=== PATIENT | female | born 1960 | race Caucasian/White ===

== ENCOUNTER 2023-02-02 12:47 | Inpatient (IN) | payer MEDICAID, SELFPAY ==
[2023-02-02] VITALS (39 sets, daily range): BP systolic 93–129; BP diastolic 68–95; PULSE 79–150; RESP 18–28; TEMP 36.1–36.8; O2SAT 88–99; BMI 24.0; BMI 24.4
--- NOTE | 2023-02-02 13:11 | CRLHL7_ITS ---
For Patients: As a result of the Cures Act, medical imaging exams and procedure reports are released immediately into your electronic medical record. You may view this report before your referring provider. If you have questions, please contact your health care provider. INDICATION: AFib with RVR. TECHNIQUE: Chest 1 view. COMPARISON: Chest radiograph 12/10/2022. FINDINGS: No focal consolidation, pleural effusion, or pneumothorax. Mild bibasilar atelectasis. Pulmonary hyperinflation. Cardiomegaly. Normal pulmonary vascularity. Old left rib fractures. IMPRESSION: 1. No acute cardiopulmonary findings. 2. Cardiomegaly. Dictated by Daphnie Salas MD @ 02/02/2023 2:16:50 PM (Electronically Signed)
[2023-02-02 13:27] LABS: Basophils Percent Auto 0.3 % (0.0-3.0); Eosinophils Percent Auto 0.6 % (0.0-7.0); Hematocrit 58.7 % (33.0-51.0); Immature Granulocytes Pct Auto 0.3 %; Lymphocytes Percent Auto 11.6 % (20-44); Mean Corpuscular HGB Conc 34 gm/dL (32-36); Mean Corpuscular Hemoglobin 32 pg (26-34); Mean Corpuscular Volume 94 fL (80-100); Neutrophils Percent Auto 79.2 % (42.0-72.0); Platelet Count* 169 K/uL (140-440); RDW Coefficient of Variation % 14.5 % (11.5-15.5); Red Blood Count 6.28 m/uL (4.00-5.20); White Blood Count* 12.04 K/uL (4.50-11.00)
[2023-02-02 13:31] LABS: Slide Review Reflex No
[2023-02-02] MEDS: dilTIAZem HCL 125 MG in 0.9 % SODIUM CHLORIDE 100 ml 100 ML IVPB (13:31)
[2023-02-02] MEDS: 0.9 % SODIUM CHLORIDE 1000 ml 1,000 ML 30 ML IV (13:34)
[2023-02-02 13:42] LABS: Albumin* 3.9 g/dL (3.3-5.0)
[2023-02-02 13:43] LABS: Chloride* 84 mmol/L (96-114); Potassium* 3.9 mmol/L (3.6-5.1); Sodium* 126 mmol/L (135-149)
[2023-02-02 13:45] LABS: Alkaline Phosphatase* 70 U/L (40-150); Aspartate Amino Transferase* 35 U/L (12-35); Blood Urea Nitrogen* 21 mg/dL (7-30); Carbon Dioxide* 34 mmol/L (20-32); Creatinine* 0.6 mg/dL (0.5-1.5); Est. Creatinine Clearance* 48.43; Estimated Glomerular Filt Rate 100 ml/min; Total Protein* 6.5 g/dL (6.0-8.3)
[2023-02-02 13:46] LABS: Alanine Aminotransferase* 29 U/L (4-35); Calcium* 9.4 mg/dL (8.4-10.6); Glucose* 133 mg/dL (60-115)
[2023-02-02 13:48] LABS: D Dimer Quantitative* 1.96 ug/ml (0.00-0.50)
[2023-02-02 13:58] LABS: NT Pro B Type NatriureticPept* 6810 pg/mL
[2023-02-02 13:59] LABS: Troponin I* 0.02 ng/mL (0.01-0.04)
--- NOTE | 2023-02-02 14:11 | CRLHL7_ITS ---
For Patients: As a result of the 21st Century Cures Act, medical imaging exams and procedure reports are released immediately into your electronic medical record. You may view this report before your referring provider. If you have questions, please contact your health care provider. INDICATION: Elevated D-dimer. TECHNIQUE: CT chest PE was acquired with 95 cc Isovue 370 IV contrast. COMPARISON: None FINDINGS: Pulmonary Arteries: Motion and decreased signal to noise ratio from low mAs degrades the evaluation of the distal segmental and subsegmental pulmonary arteries. No large central or proximal segmental pulmonary embolus. No pulmonary hypertension or right ventricular strain. Heart and Mediastinum: The visualized portions of the thyroid are normal. No axillary or supraclavicular lymphadenopathy. No mediastinal, hilar or retrocrural lymphadenopathy. Normal heart size. Normal caliber aorta. Atherosclerotic calcifications. Lungs and Airways: Motion degrades fine detail evaluation. Biapical subpleural fibrosis. Bibasilar passive atelectasis. A few scattered indeterminate pulmonary nodules, the largest of which measures 11 millimeters in the right upper lobe axial image 48. Peripheral middle lobe atelectasis/consolidation. Mild areas of bronchial wall thickening and peripheral endobronchial mucous plugging. Retained tracheal secretions. Pleura: Moderate right and small left pleural effusions. Abdomen: The visualized upper abdominal organs are unremarkable. Bones and soft tissues: The skeletal structures and soft tissues of the chest wall are unremarkable. IMPRESSION: 1. Motion and decreased signal to noise ratio from low mAs degrades the evaluation of the distal segmental and subsegmental pulmonary arteries. No large central or proximal segmental pulmonary embolus. 2. A few scattered indeterminate pulmonary nodules measuring up to 11 millimeters and peripheral middle lobe atelectasis as well as areas of bronchial wall thickening. Differential considerations include underlying infectious etiology. Recommend unenhanced chest CT in 3 months after appropriate medical therapy to document resolution and to assess for underlying malignant potential. 3. Moderate right and small left pleural effusions. Please note that all CT scans at this facility use dose modulation, iterative reconstruction, and/or weight-based dosing when appropriate to reduce radiation dose to as low as reasonably achievable. Dictated by Greyson Landry MD @ 02/02/2023 3:17:16 PM (Electronically Signed)
--- NOTE | 2023-02-02 14:14 | ED.SOB ---
HPI - SOB/Dyspnea General Chief Complaint: Shortness of Breath/Dyspnea Stated Complaint: chest pain - dr said shes staying overnight? Time Seen by Provider: 02/02/23 13:02 History of Present Illness HPI Narrative: Patient is a 63-year-old woman who is been short of breath for several months. She had routine follow-up today in the office and although she has noticed that her shortness of breath has been progressing she really had no acute symptoms. Upon arrival her pulse is 150 EKG done at the [facility] showed atrial fibrillation with a rate of 150. Patient declined ambulance but came in by private car with a solo truck driver. She really has had no chest pain she has had lower extremity edema that is been progressing over the same period time as her shortness of breath. Patient was seen approximately 2 months ago at which point atrial tachycardia rate of approximately 110 was noted. Patient was significantly polycythemic at that time. He tells me that they may have stopped her amlodipine at that visit. Patient states she does not see her doctor regularly and has just accepted it she is going to be short of breath and edematous. Upon arrival she is placed on 2 L of oxygen for mild hypoxia. Patient states she is not aware of any heart problems but does have chronic hypertension. Related Data Home Medications Medication Instructions Recorded Confirmed amlodipine 5 mg tablet 5 mg PO DAILY 02/02/23 02/02/23 aspirin 81 mg chewable tablet 1 tab PO DAILY 02/02/23 02/02/23 clonidine HCl 0.1 mg tablet 0.1 mg PO BID 02/02/23 02/02/23 fluticasone 250 mcg-salmeterol 50 1 ea inhalation BID 02/02/23 02/02/23 mcg/dose blistr powdr for inhalation furosemide 20 mg tablet 20 mg PO QAM 02/02/23 02/02/23 gabapentin 300 mg capsule 300 mg PO BID 02/02/23 02/02/23 raloxifene 60 mg tablet 60 mg PO DAILY 02/02/23 02/02/23 Previous Rx's Medication Instructions Recorded naproxen 375 mg tablet,delayed 375 mg PO BID PRN pain #30 tabs 12/10/22 release Allergies Allergy/AdvReac Type Severity Reaction Status Date / Time Penicillins AdvReac Unknown Hallucinati Verified 12/10/22 15:58 ng Review of Systems Status of ROS: Reports: 10 or more systems reviewed and unremarkable except as noted in History and below [facility] Medical History (Updated 02/02/23 @ 15:31 by Thaddeus Ryder MD) Hypertension ?I10 - Essential (primary) hypertension (ICD-10) Social History Smoking Status: Current every day smoker What tobacco products do you use: cigarettes Do you use any of these nicotine containing products: None Second hand tobacco smoke exposure: No How often do you have a drink containing alcohol: 4 or more times a week How many standard drinks containing alcohol do you have on a typical day: 3 or 4 How often do you have six or more drinks on one occasion: Never AUDIT-C Alcohol total score: 5 Non-prescribed substance use: marijuana (any form) service: No Exam Narrative: Exam Narrative: EXAM GENERAL: Patient appears plethoric and ready EYES: No scleral icterus. THYROID: no thyroid nodules or thyromegaly. LYMPH: No supraclavicular or cervical lymphadenopathy. SKIN: Visible skin seen during exam normal or with benign process only. EXT: 1+ lower extremity edema noted. HEART: Irregularly irregular with rapid rate. LUNGS: Scattered crackles bilaterally. ABD: Soft, non tender, non distended. PSYCH: Good eye contact, speech is not pressured. Const: Vital Signs, click to edit/add: Vital Signs - 24 hr 02/02/23 13:01 02/02/23 13:07 02/02/23 13:10 Temperature 96.9 F L Pulse Rate 121 H Pulse Rate [Pulse Oximeter] 144 H Respiratory Rate 28 H Blood Pressure Blood Pressure [Ri ght Upper Arm] 129/93 H Pulse Oximetry 88 91 94 Oxygen Delivery Me thod Room Air Nasal Cannula Oxygen Flow Rate 2 02/02/23 13:10 02/02/23 13:17 02/02/23 13:21 Temperature Pulse Rate 150 H Pulse Rate [Pulse Oximeter] Respiratory Rate Blood Pressure 116/82 Blood Pressure [Ri ght Upper Arm] Pulse Oximetry 94 95 Oxygen Delivery Me thod Nasal Cannula Nasal Cannula Nasal Cannula Oxygen Flow Rate 2 2 2 02/02/23 13:31 02/02/23 13:32 02/02/23 13:43 Temperature Pulse Rate 140 H 116 H 131 H Pulse Rate [Pulse Oximeter] Respiratory Rate Blood Pressure 108/95 H 108/89 Blood Pressure [Ri ght Upper Arm] Pulse Oximetry 95 95 95 Oxygen Delivery Me thod Nasal Cannula Nasal Cannula Nasal Cannula Oxygen Flow Rate 2 2 2 02/02/23 13:45 02/02/23 13:52 02/02/23 14:00 Temperature Pulse Rate 138 H 127 H 121 H Pulse Rate [Pulse Oximeter] Respiratory Rate Blood Pressure 105/73 Blood Pressure [Ri ght Upper Arm] Pulse Oximetry 93 95 96 Oxygen Delivery Me thod Nasal Cannula Nasal Cannula Nasal Cannula Oxygen Flow Rate 2 2 2 02/02/23 14:02 02/02/23 14:12 02/02/23 14:15 Temperature Pulse Rate 138 H 121 H 125 H Pulse Rate [Pulse Oximeter] Respiratory Rate Blood Pressure 98/82 93/77 Blood Pressure [Ri ght Upper Arm] Pulse Oximetry 95 93 93 Oxygen Delivery Me thod Nasal Cannula Nasal Cannula Nasal Cannula Oxygen Flow Rate 2 2 2 02/02/23 15:02 Temperature 97.4 F L Pulse Rate Pulse Rate [Pulse Oximeter] Respiratory Rate 20 Blood Pressure Blood Pressure [Ri ght Upper Arm] Pulse Oximetry 94 Oxygen Delivery Me thod Nasal Cannula Oxygen Flow Rate 4 Course Course Hospital Course: Patient seen examined. Cardizem drip started CBC comprehensive metabolic panel troponin BNP D-dimer ordered. Vital Signs Vital signs: Initial Vital Signs Temperature 96.9 F L 02/02/23 13:01 Temperature Source Temporal Artery Scan 02/02/23 13:01 Pulse Rate 144 H 02/02/23 13:01 Pulse Rhythm Irregular 02/02/23 13:01 Respiratory Rate 28 H 02/02/23 13:01 Blood Pressure 129/93 H 02/02/23 13:01 Blood Pressure Mean 105 02/02/23 13:01 Blood Pressure Position Supine 02/02/23 13:01 Pulse Oximetry 88 02/02/23 13:01 Oxygen Delivery Method Room Air 02/02/23 13:01 Vital Signs Temperature 96.9 F L 02/02/23 13:01 Pulse Rate 144 H 02/02/23 13:01 Respiratory Rate 28 H 02/02/23 13:01 Blood Pressure 129/93 H 02/02/23 13:01 Pulse Oximetry 88 02/02/23 13:01 Oxygen Delivery Method Room Air 02/02/23 13:01 Temperature 97.4 F L 02/02/23 15:02 Pulse Rate 125 H 02/02/23 14:15 Respiratory Rate 20 02/02/23 15:02 Blood Pressure 93/77 02/02/23 14:12 Pulse Oximetry 94 02/02/23 15:02 Oxygen Delivery Method Nasal Cannula 02/02/23 15:02 Oxygen Flow Rate 4 02/02/23 15:02 MDM - SOB/Dyspnea MDM Narrative Medical decision making narrative: Patient is a constellation of complex medical issues. She presents with atrial fibrillation with rapid ventricular response. I do her slow down on a Cardizem drip and we do have her blood pressure still greater than 90 systolic. She has a hemoglobin of 20. She has bilateral pleural effusions she has 2+ lower extremity edema. I am very concerned for her. She has a elevated BNP greater than 6000 this is up approximately 2000 since her last visit. Hyponatremia is also noted. Patient requires 3 L of oxygen to maintain her saturation. At this time I do believe she needs an ICU bed for further evaluation and management. Of note although the D-dimer is elevated her CT of the chest is negative for large PE. Differential Diagnosis Differential diagnosis: Likely acute exacerbation of chronic obstructive airways disease, congestive heart failure, community acquired pneumonia, asthma with exacerbation and pulmonary embolism Lab Data Labs: Lab Results 02/02/23 02/02/23 Range/Units 13:15 14:24 WBC 12.04 H (4.50-11.00) K/uL RBC 6.28 H (4.00-5.20) m/uL Hgb 20.0 H (12.0-16.0) gm/dL Hct 58.7 H (33.0-51.0) % MCV 94 (80-100) fL MCH 32 (26-34) pg MCHC 34 (32-36) gm/dL RDW Coeff of Jonel 14.5 (11.5-15.5) % Plt Count 169 (140-440) K/uL Neut % (Auto) 79.2 H (42.0-72.0) % Lymph % (Auto) 11.6 L (20-44) % [place] % (Auto) 8.0 (0.0-11.0) % Eos % (Auto) 0.6 (0.0-7.0) % Baso % (Auto) 0.3 (0.0-3.0) % Neut # (Auto) 9.50 H (1.7-7.0) K/uL Lymph # (Auto) 1.40 (0.90-2.90) K/uL [place] # (Auto) 1.00 H (0.00-0.90) K/UL Eos # (Auto) 0.10 (0.00-0.50) K/uL Baso # (Auto) 0.00 (0.00-0.30) K/uL Abs Immat Gran (auto) 0.00 (0.00-0.30) K/uL Imm/Tot Granulo (auto) 0.3 % D-Dimer Quant (PE/DVT) 1.96 H (0.00-0.50) ug/ml VBG pH 7.457 H (7.32-7.43) VBG pCO2 49 (40-50) mmHG VBG pO2 63.7 H (25-47) mmHG VBG HCO3 35 H (21-28) mmol/L Sodium 126 L (135-149) mmol/L Potassium 3.9 (3.6-5.1) mmol/L Chloride 84 L (96-114) mmol/L Carbon Dioxide 34 H (20-32) mmol/L BUN 21 (7-30) mg/dL Creatinine 0.6 (0.5-1.5) mg/dL Estimated Creat Clear 48.43 Estimated GFR 100 ml/min Glucose 133 H (60-115) mg/dL Calcium 9.4 (8.4-10.6) mg/dL Total Bilirubin 1.6 H (0.1-1.5) mg/dL AST 35 (12-35) U/L ALT 29 (4-35) U/L Alkaline Phosphatase 70 (40-150) U/L Troponin I 0.02 (0.01-0.04) ng/mL NT-Pro-B Natriuret Pep 6810 pg/mL Total Protein 6.5 (6.0-8.3) g/dL Albumin 3.9 (3.3-5.0) g/dL Discharge Plan Discharge Clinical Impression: Atrial fibrillation Patient Disposition: Admitted As Inpatient Condition: Stable Activity Level: Other Discharge Diet: Other Prescriptions: No Action naproxen 375 mg tablet,delayed release (DR/EC) 375 mg PO BID PRN (Reason: pain) Qty: 30 0RF fluticasone propion-salmeterol 250-50 mcg/dose blister with device 1 ea INHALATION BID clonidine HCl 0.1 mg tablet 0.1 mg PO BID amlodipine 5 mg tablet 5 mg PO DAILY gabapentin 300 mg capsule 300 mg PO BID aspirin 81 mg tablet,chewable 1 tab PO DAILY raloxifene 60 mg tablet 60 mg PO DAILY furosemide 20 mg tablet 20 mg PO QAM Follow Up/Referrals: Melissa Ramos MD [Primary Care Provider] -
[2023-02-02 14:30] LABS: HCO3 VBG 35 mmol/L (21-28); PCO2 VBG 49 mmHG (40-50); PO2 VBG 63.7 mmHG (25-47); pH VBG 7.457 (7.32-7.43)
--- NOTE | 2023-02-02 15:07 | ED.NURSE ---
pt's oxygen dropped down to ~86% on 2L, so she was titrated up to 4L and her oxygen level was ~96% for a while. Pt is also resting
--- NOTE | 2023-02-02 15:14 | ED.NURSE ---
Pt was put on 5L of oxygen, OxyMask on. Her O2 levels were dropping down to ~88%. PRINCIPAL DATA ARCHITECT in room to assess.
--- NOTE | 2023-02-02 15:18 | ED.NURSE ---
JACKER came in and assessed pt, they turned her back down to 3L, on the oxymask. She is currently at ~97%, resting.
[2023-02-02 15:37] LABS: SARS PCR* Negative SARS-CoV-2 (Negative)
[2023-02-02] MEDS: dilTIAZem 120 MG CAP.ER.24H PO (17:52)
[2023-02-02] MEDS: THIAMINE 100 MG TABLET PO (17:52)
[2023-02-02] MEDS: METOPROLOL SUCCINATE (XL) 25 MG TAB PO (17:52)
[2023-02-02] MEDS: NICOTINE 14 mg PATCH 1 PATCH TRANSDERMA (17:52)
--- NOTE | 2023-02-02 17:57 | PM.IMHP1 ---
Hospitalist- H&P: HPI History of Present Illness Time Seen by Provider: 17:00 Date Seen: 02/02/23 Chief complaint: chest pain - dr said shes staying overnight? Narrative: Cornelia Chu is a 63 year old woman who presents to the emergency department as referral from her primary care physician who saw her today in the clinic and discerned that the patient had atrial fibrillation with rapid ventricular response and thus refer the patient to the emergency department for further assessment. Patient has had a few months of gradually increasing edema affecting mainly bilateral lower extremities but also hands and face. Has had a gradually progressive sense of fatigue during the same interim of time. In the process of assessing the patient and treating her for this she was seen in the clinic as well as emergency department. In the emergency department on 12/10/2022 CBC was obtained with the hemoglobin of 19.7 hematocrit of 59 white blood cell count of 11.1 platelet count 150. No additional testing was done for this. Patient was started on oral furosemide. It was recommended that she utilize compression stockings but she states she is not able to for these. Denies chest heaviness, pressure, tightness, or pain. Denies syncope or near-syncope. Denies nausea vomiting. Denies palpitations or chest fluttering. Denies fevers, rigors, diaphoresis. Denies night sweats. Denies pruritus. Denies weight loss. With the edema she has had a weight gain. Has a sense of aching in her extremities. Denies nausea, vomiting, palpitations. Review of Systems Status of ROS: Reports: 10 or more systems reviewed and unremarkable except as noted in History and below [facility] Medical History (Updated 02/02/23 @ 18:58 by Eliseo Villareal MD) Colon polyp ?K63.5 - Polyp of colon (ICD-10) Chronic bronchitis with COPD (chronic obstructive pulmonary disease) ?J44.9 - Chronic obstructive pulmonary disease, unspecified (ICD-10) Diverticulosis of colon ?K57.30 - Diverticulosis of large intestine without perforation or abscess without bleeding (ICD-10) Severe osteopetrosis ?Q78.2 - Osteopetrosis (ICD-10) Hyponatremia ?E87.1 - Hypo-osmolality and hyponatremia (ICD-10) Spinal stenosis of lumbar region with neurogenic claudication ?M48.062 - Spinal stenosis, lumbar region with neurogenic claudication (ICD-10) Cigarette smoker ?F17.210 - Nicotine dependence, cigarettes, uncomplicated (ICD-10) Alcohol use disorder ?F10.90 - Alcohol use, unspecified, uncomplicated (ICD-10) Hypertension ?I10 - Essential (primary) hypertension (ICD-10) Surgical History (Updated 02/02/23 @ 17:46 by Eliseo Villareal MD) History of loop electrosurgical excision procedure (LEEP) of cervix ?Z98.890 - Other specified postprocedural states (ICD-10) Status post colonoscopy with polypectomy ?Z98.890 - Other specified postprocedural states (ICD-10) Family History (Updated 02/02/23 @ 17:51 by Eliseo Villareal MD) Other CHF (congestive heart failure) Coronary artery disease Social History (Updated 02/02/23 @ 17:53 by Eliseo Villareal MD) Narrative: Lives alone. . Has social security disability related to her back. Designates her daughter, Jermaine Chu, cell phone number [phone], as her power of corporate associate attorney for health should that be required. Requests DNR DNI resuscitation status. What is your current living situation?: I presently have a place to live Problems where you live: pests, such as bugs, ants, or mice and mold Problems where you live details: mold/pests (building old) In the past 12 months, utilities in danger of being shut off: no In the past 12 mos, have been you worried that your food would run out before you had money to buy more?: never true In the past 12 mos, the food you bought just didn't last and you didn't have money to buy more?: never true Highest level of school completed/degree received: high school graduate Smoking Status: Current every day smoker What tobacco products do you use: cigarettes Smoking packs per day: 0.5 Smoking cigarettes per day: 10.0 Do you use any of these nicotine containing products: None Second hand tobacco smoke exposure: No How often do you have a drink containing alcohol: 4 or more times a week Alcohol type: beer How many standard drinks containing alcohol do you have on a typical day: 3 or 4 How often do you have six or more drinks on one occasion: Never AUDIT-C Alcohol total score: 5 Non-prescribed substance use: marijuana (any form) Non-prescribed substance use details: I smoke it as often as possible Caffeine: Yes How often does anyone, including family, friends and others, physically hurt you: never How often does anyone, including family, friends and others, insult or talk down to you: never How often does anyone, including family, friends and others, threaten you with harm: never How often does anyone, including family, friends and others, scream or curse at you: never service: No Meds Home Medications and Allergies Home Medications Medication Instructions Recorded Confirmed Type acetaminophen 500 mg tablet 1,000 mg PO TID PRN 02/02/23 02/02/23 History albuterol sulfate 90 mcg/actuation 1 - 2 puff inhalation Q4H PRN 02/02/23 02/02/23 History aerosol inhaler wheezing amlodipine 5 mg tablet 5 mg PO DAILY 02/02/23 02/02/23 History aspirin 81 mg chewable tablet 1 tab PO DAILY 02/02/23 02/02/23 History clonidine HCl 0.1 mg tablet 0.1 mg PO BID 02/02/23 02/02/23 History fluticasone 250 mcg-salmeterol 50 1 ea inhalation BID 02/02/23 02/02/23 History mcg/dose blistr powdr for inhalation furosemide 20 mg tablet 20 mg PO QAM 02/02/23 02/02/23 History gabapentin 300 mg capsule 300 mg PO BID 02/02/23 02/02/23 History nspplgok-irag-zona 8 mg-folic 400 1 tab PO DAILY 02/02/23 02/02/23 History mcg-K 50 mcg-lutein 300 mcg tablet (Centrum Silver Women) raloxifene 60 mg tablet 60 mg PO DAILY 02/02/23 02/02/23 History Allergies Allergy/AdvReac Type Severity Reaction Status Date / Time Penicillins AdvReac Unknown Hallucinati Verified 12/10/22 15:58 ng Exam Narrative: Exam Narrative: I examine her in the emergency department as she is in a semi recumbent position on the exam table. The color of her skin is strikingly red in her face, extremities, torsum. Smells strongly of tobacco smoke. Appears comfortable and in no acute distress. Vision and hearing are grossly normal. Alert, oriented to self, place, time, and even situation. Seemingly slow to respond to certain questions. Cooperative, friendly. Somewhat anxious. Mood and affect are congruent. Tympanic membranes are normal. Midline nasal septum. Dentition in fair repair. Mallampati class 2 airway. Does not have icterus. Does not have conjunctival injection. Pupils equally round reactive to light and accommodation. Extraocular muscles are intact. Neck is supple. Midline trachea. Does have jugular venous distention. No head and neck lymphadenopathy. Lungs with minimal inspiratory and expiratory wheezing, prolonged expiratory phase. No rales or rhonchi. Shallow rapid breathing. Barrel-shaped chest. No CVA tenderness. Heart tones chaotic and tachycardic. Distant tones. No murmur, gallop, rub. PMI not laterally displaced. Abdomen with active bowel sounds, soft, nontender. Has pitting edema up to her thighs bilaterally. Capillary refill less than 3 seconds. No focal motor neurologic deficits. No tremor, asterixis, or ataxia. Most striking feature of her skin exam is the erythema of face, extremities, and her torsum. No rashes. No petechiae. Does have some cyanosis of distal extremities. Const: Vital Signs, click to edit/add: Vital Signs - 24 hr 02/02/23 13:01 02/02/23 13:07 02/02/23 13:10 Temperature 96.9 F L Pulse Rate 121 H Pulse Rate [Left P ulse Oximeter] Pulse Rate [Pulse Oximeter] 144 H Respiratory Rate 28 H Blood Pressure Blood Pressure [Ri ght Arm] Blood Pressure [Ri ght Upper Arm] 129/93 H Pulse Oximetry 88 91 94 Oxygen Delivery Me thod Room Air Nasal Cannula Oxygen Flow Rate 2 02/02/23 13:10 02/02/23 13:17 02/02/23 13:21 Temperature Pulse Rate 150 H Pulse Rate [Left P ulse Oximeter] Pulse Rate [Pulse Oximeter] Respiratory Rate Blood Pressure 116/82 Blood Pressure [Ri ght Arm] Blood Pressure [Ri ght Upper Arm] Pulse Oximetry 94 95 Oxygen Delivery Me thod Nasal Cannula Nasal Cannula Nasal Cannula Oxygen Flow Rate 2 2 2 02/02/23 13:31 02/02/23 13:32 02/02/23 13:43 Temperature Pulse Rate 140 H 116 H 131 H Pulse Rate [Left P ulse Oximeter] Pulse Rate [Pulse Oximeter] Respiratory Rate Blood Pressure 108/95 H 108/89 Blood Pressure [Ri ght Arm] Blood Pressure [Ri ght Upper Arm] Pulse Oximetry 95 95 95 Oxygen Delivery Me thod Nasal Cannula Nasal Cannula Nasal Cannula Oxygen Flow Rate 2 2 2 02/02/23 13:45 02/02/23 13:52 02/02/23 14:00 Temperature Pulse Rate 138 H 127 H 121 H Pulse Rate [Left P ulse Oximeter] Pulse Rate [Pulse Oximeter] Respiratory Rate Blood Pressure 105/73 Blood Pressure [Ri ght Arm] Blood Pressure [Ri ght Upper Arm] Pulse Oximetry 93 95 96 Oxygen Delivery Me thod Nasal Cannula Nasal Cannula Nasal Cannula Oxygen Flow Rate 2 2 2 02/02/23 14:02 02/02/23 14:12 02/02/23 14:15 Temperature Pulse Rate 138 H 121 H 125 H Pulse Rate [Left P ulse Oximeter] Pulse Rate [Pulse Oximeter] Respiratory Rate Blood Pressure 98/82 93/77 Blood Pressure [Ri ght Arm] Blood Pressure [Ri ght Upper Arm] Pulse Oximetry 95 93 93 Oxygen Delivery Me thod Nasal Cannula Nasal Cannula Nasal Cannula Oxygen Flow Rate 2 2 2 02/02/23 14:22 02/02/23 14:32 02/02/23 14:43 Temperature Pulse Rate 116 H 117 H Pulse Rate [Left P ulse Oximeter] Pulse Rate [Pulse Oximeter] Respiratory Rate Blood Pressure 100/79 98/85 94/79 Blood Pressure [Ri ght Arm] Blood Pressure [Ri ght Upper Arm] Pulse Oximetry 93 92 Oxygen Delivery Me thod Nasal Cannula Nasal Cannula Nasal Cannula Oxygen Flow Rate 2 2 2 02/02/23 14:44 02/02/23 14:45 02/02/23 14:47 Temperature Pulse Rate 115 H 108 H 109 H Pulse Rate [Left P ulse Oximeter] Pulse Rate [Pulse Oximeter] Respiratory Rate Blood Pressure 104/71 Blood Pressure [Ri ght Arm] Blood Pressure [Ri ght Upper Arm] Pulse Oximetry 93 94 93 Oxygen Delivery Me thod Nasal Cannula Nasal Cannula Nasal Cannula Oxygen Flow Rate 2 2 2 02/02/23 15:00 02/02/23 15:02 02/02/23 15:02 Temperature 97.4 F L Pulse Rate 100 101 H Pulse Rate [Left P ulse Oximeter] Pulse Rate [Pulse Oximeter] Respiratory Rate 20 Blood Pressure 104/68 Blood Pressure [Ri ght Arm] Blood Pressure [Ri ght Upper Arm] Pulse Oximetry 93 94 93 Oxygen Delivery Me thod Nasal Cannula Nasal Cannula Nasal Cannula Oxygen Flow Rate 2 4 2 02/02/23 15:15 02/02/23 15:17 02/02/23 15:30 Temperature Pulse Rate 92 87 96 Pulse Rate [Left P ulse Oximeter] Pulse Rate [Pulse Oximeter] Respiratory Rate Blood Pressure 100/74 Blood Pressure [Ri ght Arm] Blood Pressure [Ri ght Upper Arm] Pulse Oximetry 97 99 98 Oxygen Delivery Me thod OxyMask OxyMask OxyMask Oxygen Flow Rate 3 4 3 02/02/23 15:32 02/02/23 15:33 02/02/23 15:45 Temperature Pulse Rate 90 90 80 Pulse Rate [Left P ulse Oximeter] Pulse Rate [Pulse Oximeter] Respiratory Rate Blood Pressure 108/76 Blood Pressure [Ri ght Arm] Blood Pressure [Ri ght Upper Arm] Pulse Oximetry 96 96 96 Oxygen Delivery Me thod OxyMask OxyMask OxyMask Oxygen Flow Rate 3 3 3 02/02/23 16:00 02/02/23 16:02 02/02/23 16:15 Temperature Pulse Rate 92 100 96 Pulse Rate [Left P ulse Oximeter] Pulse Rate [Pulse Oximeter] Respiratory Rate Blood Pressure 111/79 Blood Pressure [Ri ght Arm] Blood Pressure [Ri ght Upper Arm] Pulse Oximetry 97 97 96 Oxygen Delivery Me thod OxyMask OxyMask OxyMask Oxygen Flow Rate 3 3 3 02/02/23 16:52 02/02/23 16:52 02/02/23 17:18 Temperature 98.3 F 98.3 F Pulse Rate Pulse Rate [Left P ulse Oximeter] 92 80 Pulse Rate [Pulse Oximeter] Respiratory Rate 22 22 22 Blood Pressure Blood Pressure [Ri ght Arm] 109/91 H 109/91 H Blood Pressure [Ri ght Upper Arm] Pulse Oximetry 95 92 94 Oxygen Delivery Me thod OxyMask Nasal Cannula OxyMask Oxygen Flow Rate 2 3 3 02/02/23 17:39 Temperature Pulse Rate 94 Pulse Rate [Left P ulse Oximeter] Pulse Rate [Pulse Oximeter] Respiratory Rate Blood Pressure Blood Pressure [Ri ght Arm] Blood Pressure [Ri ght Upper Arm] Pulse Oximetry Oxygen Delivery Me thod Oxygen Flow Rate Documenting provider has reviewed patient's vital signs: yes Hospitalist - H&P: Result Labs Labs: Short CBC 02/02/23 Range/Units 13:15 WBC 12.04 H (4.50-11.00) K/uL Hgb 20.0 H (12.0-16.0) gm/dL Hct 58.7 H (33.0-51.0) % Plt Count 169 (140-440) K/uL BMP 02/02/23 13:15 Sodium 126 L Potassium 3.9 Chloride 84 L Carbon Dioxide 34 H BUN 21 Creatinine 0.6 Glucose 133 H Calcium 9.4 Cardiac Enzymes 02/02/23 Range/Units 13:15 Troponin I 0.02 (0.01-0.04) ng/mL Liver Function 02/02/23 Range/Units 13:15 Total Bilirubin 1.6 H (0.1-1.5) mg/dL AST 35 (12-35) U/L ALT 29 (4-35) U/L Alkaline Phosphatase 70 (40-150) U/L Albumin 3.9 (3.3-5.0) g/dL ECG Attestation: I personally reviewed and interpreted this ECG as follows: ECG interpretation date: 02/02/23 ECG interpretation time: 16:00 Interpretation: AFib with RVR. Incomplete bundle-branch block. Electrocardiographic criteria for right ventricular hypertrophy. Imaging Chest x-ray: Attestation: I have reviewed the pertinent imaging results. Radiologist's impression: IMPRESSION: 1. No acute cardiopulmonary findings. 2. Cardiomegaly. CT scan - chest: Attestation: I have reviewed the pertinent imaging results. Radiologist's impression: IMPRESSION: 1. Motion and decreased signal to noise ratio from low mAs degrades the evaluation of the distal segmental and subsegmental pulmonary arteries. No large central or proximal segmental pulmonary embolus. 2. A few scattered indeterminate pulmonary nodules measuring up to 11 millimeters and peripheral middle lobe atelectasis as well as areas of bronchial wall thickening. Differential considerations include underlying infectious etiology. Recommend unenhanced chest CT in 3 months after appropriate medical therapy to document resolution and to assess for underlying malignant potential. 3. Moderate right and small left pleural effusions. Assessment and Plan Assessment and plan (1) Atrial fibrillation with rapid ventricular response: Problem comment: Rate control with IV diltiazem drip. Will also initiate low-dose diltiazem CD. Single dose IV metoprolol. Initiate metoprolol succinate orally with as needed metoprolol tartrate. [id number] score 4, initiated apixaban 5 mg po bid. Status: Acute (2) Acute on chronic heart failure: Problem comment: Needs further assessment with echocardiogram to discern between systolic and diastolic failure, right-sided failure, pulmonary hypertension. Furosemide 40 mg IV. Status: Acute (3) Hyponatremia: Problem comment: 02/02/2023 sodium 126. Furosemide diuresis. 1500 mL fluid restriction. Monitor serum sodiums. Status: Acute (4) Cigarette smoker: Problem comment: Smoked for over 50 years, average of 1/2 pack per day, approximately a 25 pack-year history. Still smoking about 1/2 pack per day, some days as much as 1 pack per day. Nicotine 14 mg patch applied daily while in hospital. Pre contemplative. Nevertheless will ask our respiratory therapist reintroduce the idea of smoking cessation. Status: Acute (5) Erythrocytosis: Problem comment: 05/12/2022 hemoglobin 15.9, hematocrit 45.9. White blood cell count 10.7, platelet count 235. 12/10/2022 hemoglobin 19.7, hematocrit 59. White blood cell count 11.1, platelet count 150. 02/02/2023 hemoglobin 20.0, hematocrit 50.7. White blood cell count 12, platelet count 169. Etiology has yet to be determined. Certainly already hypoxic. Warrants heart failure stabilization. Consider overnight oximetry in hospital after the 1st night. Consider obtaining an erythropoietin level in the outpatient setting and appropriate follow-up. Status: Acute (6) Respiratory failure with hypoxia and hypercapnia: Problem comment: Oxygen supplementation, carefully. Diuresis for her heart failure. Consider overnight oximetry after her 1st night in the hospital with diuresis efforts. Status: Acute (7) Chronic bronchitis with COPD (chronic obstructive pulmonary disease): Problem comment: Continue with supportive efforts. Will add prednisone burst therapy. Status: Acute (8) Hypertension: Problem comment: Admitted to the hospital on clonidine 0.1 mg twice daily. Will decrease dose to 0.05 mg twice daily initially and subsequently try to cut down to once a day. Will be adding diltiazem and metoprolol for rate control for the heart failure. After echo will need to consider possibly adding ARB verses KATHRYN-inhibitor. Be question halves if some of this is driven by undiagnosed obstructive sleep apnea. Status: Acute Plan 1. Reviewed impression and plan with patient. 2. Answered her questions. 3. Admit to critical care. 4. Patient agreeable with above stated plans and recommendations.
[2023-02-02] MEDS: APIXABAN 5 MG TABLET PO (17:59)
--- NOTE | 2023-02-02 18:10 | PC.NURSE ---
Shift Summary: Patient arrived to floor 1635 from ED. Vitals taken q1h and have been stable. Tele shows a-fib HR 70-100. Nicotine patch placed on right upper arm. Tolerating regular diet. Alert and oriented. Has Dilt drip going at 15mg/hr when first arrived, Per MD lower to 10mg/hr.
[2023-02-02] MEDS: FUROSEMIDE 10 MG/ML inj 40 MG IVP (18:48)
[2023-02-02] MEDS: SODIUM CHLORIDE 0.9 % (FLUSH) 10 ML SYRINGE 5 ML IVF ×2 (18:48→20:43)
[2023-02-02 19:09] LABS: Bilirubin Direct* 0.4 mg/dL (0.0-0.5)
[2023-02-02 19:11] LABS: Bilirubin Total* 1.6 mg/dL (0.1-1.5)
[2023-02-02] MEDS: ACETAMINOPHEN 325 MG TABLET 650 MG PO (20:40)
[2023-02-02] MEDS: GABAPENTIN 300 MG CAPSULE PO (20:41)
[2023-02-02] MEDS: ALBUTEROL INHALER 2 PUFF IH (20:42)
[2023-02-02] MEDS: cloNIDine HCL 0.1 MG TABLET 0.05 MG PO (20:42)
[2023-02-02] MEDS: BUDESONIDE 0.5 MG/2ML NEB NEB (20:43)
[2023-02-03] VITALS (24 sets, daily range): BP systolic 87–115; BP diastolic 55–80; PULSE 71–104; RESP 16–22; TEMP 36–36.7; O2SAT 80–96
[2023-02-03] MEDS: dilTIAZem HCL 125 MG in 0.9 % SODIUM CHLORIDE 100 ml 100 ML IVPB (00:34)
[2023-02-03 06:15] LABS: HCO3 VBG 39 mmol/L (21-28); Lactate* 0.9 mmol/L (0.5-1.9); PO2 VBG 30.3 mmHG (25-47); pH VBG 7.339 (7.32-7.43)
[2023-02-03 06:21] LABS: Basophils Percent Auto 0.6 % (0.0-3.0); Hematocrit 58.5 % (33.0-51.0); Hemoglobin* 19.5 gm/dL (12.0-16.0); Immature Granulocytes Pct Auto 0.4 %; Lymphocytes Percent Auto 12.7 % (20-44); Mean Corpuscular HGB Conc 33 gm/dL (32-36); Mean Corpuscular Hemoglobin 32 pg (26-34); Mean Corpuscular Volume 96 fL (80-100); Neutrophils Percent Auto 75.3 % (42.0-72.0); PCO2 VBG 73 mmHG (40-50); Platelet Count* 147 K/uL (140-440); RDW Coefficient of Variation % 15.3 % (11.5-15.5); Red Blood Count 6.08 m/uL (4.00-5.20); White Blood Count* 11.16 K/uL (4.50-11.00)
[2023-02-03 06:23] LABS: Slide Review Reflex No
--- NOTE | 2023-02-03 06:36 | PC.NURSE ---
END OF SHIFT NOTE: PT PLEASANT AND COOPERATIVE WITH CARES. A&Ox3. PT DENIES CP & N/V. AMBULATES WITH SBA. VSS ON 2.5-3L OXYMASK; SOFT BP'S. AFEBRILE. PT ON DILT DRIP (SEE EMAR). PT REPORTS CHRONIC ACHE TO BLE AND BACK. PT STATES TOLERATING DISCOMFORT. BLE +2 PITTING EDEMA. PT HAS OVERALL ERYTHEMA TO FACE, TRUNK AND EXTREMITIES. OFF OF OXYGEN PT DESATS INTO LOW TO MID 70'S. TELE AND EKG READ AFIB WITH BBB. MORNING WT #140.9 STANDING SCALE. CALL LIGHT WITHIN PT?S REACH.?
[2023-02-03 06:38] LABS: Albumin* 3.4 g/dL (3.3-5.0); Chloride* 87 mmol/L (96-114)
[2023-02-03 06:39] LABS: Potassium* 3.7 mmol/L (3.6-5.1); Sodium* 128 mmol/L (135-149)
[2023-02-03 06:41] LABS: Alkaline Phosphatase* 54 U/L (40-150); Aspartate Amino Transferase* 33 U/L (12-35); Carbon Dioxide* 38 mmol/L (20-32); Creatinine* 0.6 mg/dL (0.5-1.5); Est. Creatinine Clearance* 48.43; Estimated Glomerular Filt Rate 100 ml/min; Total Protein* 6.2 g/dL (6.0-8.3)
[2023-02-03 06:42] LABS: Alanine Aminotransferase* 26 U/L (4-35); Blood Urea Nitrogen* 18 mg/dL (7-30); Calcium* 8.8 mg/dL (8.4-10.6); Glucose* 106 mg/dL (60-115); Magnesium* 1.8 mg/dL (1.5-2.6); Phosphorus* 4.3 mg/dL (2.5-4.5)
[2023-02-03 06:44] LABS: C Reactive Protein* 1.1 mg/dL (0.5-1.0)
[2023-02-03 06:51] LABS: Troponin I* 0.02 ng/mL (0.01-0.04)
[2023-02-03 06:52] LABS: NT Pro B Type NatriureticPept* 3040 pg/mL
--- NOTE | 2023-02-03 07:51 | PM.IMPN1 ---
Progress Note: A&P Assessment and plan (1) Respiratory failure with hypoxia and hypercapnia: Problem details: Likely combination of problems including COPD exacerbation, heart failure exacerbation, undiagnosed sleep apnea. Very hypercapnic with oxygen supplementation overnight. Start acetazolamide to address contraction alkalosis with diuresis. Monitor blood gas to assess. Status: Acute (2) Atrial fibrillation with rapid ventricular response: Problem details: Has been on diltiazem drip. Transition to oral metoprolol. Anticoagulation with apixaban. Echo Status: Acute (3) Acute on chronic heart failure: Problem details: Has pleural effusions and lower extremity edema likely due to heart failure. Obtain echo. Rate control for AFib. Diuresis with fuosemide and acetazolamide for contraction alkalosis and CO2 retention Status: Acute (4) Erythrocytosis: Problem details: 05/12/2022 hemoglobin 15.9, hematocrit 45.9. White blood cell count 10.7, platelet count 235. 12/10/2022 hemoglobin 19.7, hematocrit 59. White blood cell count 11.1, platelet count 150. 02/02/2023 hemoglobin 20.0, hematocrit 50.7. White blood cell count 12, platelet count 169. Etiology has yet to be determined. Certainly already hypoxic. Warrants heart failure stabilization. Consider overnight oximetry in hospital after the 1st night. Consider obtaining an erythropoietin level in the outpatient setting and appropriate follow-up. Status: Acute (5) Hyponatremia: Problem details: 02/02/2023 sodium 126. Furosemide diuresis. 1500 mL fluid restriction. Monitor serum sodiums. Status: Acute (6) COPD exacerbation: Problem details: Prednisone and inhaled bronchodilators. Status: Acute (7) Hypertension: Problem details: Admitted to the hospital on clonidine 0.1 mg twice daily. Will decrease dose to 0.05 mg twice daily initially and subsequently try to cut down to once a day. Adjust clonidine based on response to beta-aneesh for heart rate control Status: Acute (8) Multiple pulmonary nodules: Problem details: Radiologist recommends three-month (beginning of May 2023) follow-up CT scan to evaluate. Status: Acute (9) Alcohol use disorder: Problem details: Acknowledges drinking 2-4 drinks daily, does not stop drinking to know if she has ever had alcohol withdrawals when not drinking. Already taking gabapentin daily. Will initiate CIWA driven protocol with lorazepam as needed. No sign of alcohol withdrawal on 1st day of admission Status: Acute Plan Patient is admitted to the hospital for management of multiple problems causing hypoxic and ventilatory respiratory failure. She has heart failure with AFib in RVR. Rate is now better controlled this morning and echo is pending. She has COPD exacerbation. Initiate prednisone and inhaled bronchodilators for this. She likely has sleep apnea. Will do a nocturnal oximetry tonight. It appears she needs oxygen but can only tolerate a very low dose of supplemental oxygen due to CO2 retention. This will need close monitoring. Initially I am going to start acetazolamide for a brief trial while we diurese her and manage her contraction alkalosis and CO2 retention. Will need close follow blood gases closely for this. Numerous issues need to be addressed as an outpatient including lung nodules, cardiology consultation for heart disease and AFib, possible sleep study, possible pulmonary consultation, tobacco and alcohol use. Time Spent With Patient Total time spent: Total time spent today is 60 minutes, 40 minutes in coordination of care discussing with patient and other providers ongoing evaluation management of respiratory failure Subjective Date Seen: 02/03/23 Interval history: 63-year-old female admitted to the hospital with a few months of increasing edema and a couple weeks of shortness of breath and recent onset of atrial fibrillation with rapid ventricular response. On admission she was found to be in new atrial fibrillation with RVR, hypoxic requiring large amounts of oxygen as well as hypercarbic with respiratory acidosis/CO2 retention. She has obtain rate control with IV diltiazem, oral metoprolol. She reports breathing is a little better this morning. She reports no fever. She has a chronic cough which has been worse recently. She reports a good appetite. Prior to this admission she had evaluation including for her edema with ultrasounds which showed no DVT. She has had compression hose applied but she reports she can not put them on so she has not been using them. She does have a history of COPD and continues to smoke a half pack of cigarettes per day. Exam Narrative: Exam Narrative: She is alert and appears in no obvious distress. Mild increased rate of breathing. Able to talk in full sentences. Oriented to circumstances. Respirations with decreased breath sounds, prolonged expiratory phase and relatively diffuse mild expiratory wheezes. Cardiovascular: S1, S2, irregularly irregular. No murmur gallop or rub. Abdomen: Bowel sounds active. Abdomen is soft, somewhat protuberant without significant tenderness or mass. Extremities with 1+ edema bilaterally. Intact pedal pulses. No significant tremor or asterixis Const: Vital Signs, click to edit/add: Vital Signs - 24 hr 02/02/23 13:01 02/02/23 13:07 02/02/23 13:10 Temperature 96.9 F L Pulse Rate 121 H Pulse Rate [Left P ulse Oximeter] Pulse Rate [Pulse Oximeter] 144 H Respiratory Rate 28 H Blood Pressure Blood Pressure [Ri ght Arm] Blood Pressure [Ri ght Upper Arm] 129/93 H Pulse Oximetry 88 91 94 Oxygen Delivery Me thod Room Air Nasal Cannula Oxygen Flow Rate 2 02/02/23 13:10 02/02/23 13:17 02/02/23 13:21 Temperature Pulse Rate 150 H Pulse Rate [Left P ulse Oximeter] Pulse Rate [Pulse Oximeter] Respiratory Rate Blood Pressure 116/82 Blood Pressure [Ri ght Arm] Blood Pressure [Ri ght Upper Arm] Pulse Oximetry 94 95 Oxygen Delivery Me thod Nasal Cannula Nasal Cannula Nasal Cannula Oxygen Flow Rate 2 2 2 02/02/23 13:31 02/02/23 13:32 02/02/23 13:43 Temperature Pulse Rate 140 H 116 H 131 H Pulse Rate [Left P ulse Oximeter] Pulse Rate [Pulse Oximeter] Respiratory Rate Blood Pressure 108/95 H 108/89 Blood Pressure [Ri ght Arm] Blood Pressure [Ri ght Upper Arm] Pulse Oximetry 95 95 95 Oxygen Delivery Me thod Nasal Cannula Nasal Cannula Nasal Cannula Oxygen Flow Rate 2 2 2 02/02/23 13:45 02/02/23 13:52 02/02/23 14:00 Temperature Pulse Rate 138 H 127 H 121 H Pulse Rate [Left P ulse Oximeter] Pulse Rate [Pulse Oximeter] Respiratory Rate Blood Pressure 105/73 Blood Pressure [Ri ght Arm] Blood Pressure [Ri ght Upper Arm] Pulse Oximetry 93 95 96 Oxygen Delivery Me thod Nasal Cannula Nasal Cannula Nasal Cannula Oxygen Flow Rate 2 2 2 02/02/23 14:02 02/02/23 14:12 02/02/23 14:15 Temperature Pulse Rate 138 H 121 H 125 H Pulse Rate [Left P ulse Oximeter] Pulse Rate [Pulse Oximeter] Respiratory Rate Blood Pressure 98/82 93/77 Blood Pressure [Ri ght Arm] Blood Pressure [Ri ght Upper Arm] Pulse Oximetry 95 93 93 Oxygen Delivery Me thod Nasal Cannula Nasal Cannula Nasal Cannula Oxygen Flow Rate 2 2 2 02/02/23 14:22 02/02/23 14:32 02/02/23 14:43 Temperature Pulse Rate 116 H 117 H Pulse Rate [Left P ulse Oximeter] Pulse Rate [Pulse Oximeter] Respiratory Rate Blood Pressure 100/79 98/85 94/79 Blood Pressure [Ri ght Arm] Blood Pressure [Ri ght Upper Arm] Pulse Oximetry 93 92 Oxygen Delivery Me thod Nasal Cannula Nasal Cannula Nasal Cannula Oxygen Flow Rate 2 2 2 02/02/23 14:44 02/02/23 14:45 02/02/23 14:47 Temperature Pulse Rate 115 H 108 H 109 H Pulse Rate [Left P ulse Oximeter] Pulse Rate [Pulse Oximeter] Respiratory Rate Blood Pressure 104/71 Blood Pressure [Ri ght Arm] Blood Pressure [Ri ght Upper Arm] Pulse Oximetry 93 94 93 Oxygen Delivery Me thod Nasal Cannula Nasal Cannula Nasal Cannula Oxygen Flow Rate 2 2 2 02/02/23 15:00 02/02/23 15:02 02/02/23 15:02 Temperature 97.4 F L Pulse Rate 100 101 H Pulse Rate [Left P ulse Oximeter] Pulse Rate [Pulse Oximeter] Respiratory Rate 20 Blood Pressure 104/68 Blood Pressure [Ri ght Arm] Blood Pressure [Ri ght Upper Arm] Pulse Oximetry 93 94 93 Oxygen Delivery Me thod Nasal Cannula Nasal Cannula Nasal Cannula Oxygen Flow Rate 2 4 2 02/02/23 15:15 02/02/23 15:17 02/02/23 15:30 Temperature Pulse Rate 92 87 96 Pulse Rate [Left P ulse Oximeter] Pulse Rate [Pulse Oximeter] Respiratory Rate Blood Pressure 100/74 Blood Pressure [Ri ght Arm] Blood Pressure [Ri ght Upper Arm] Pulse Oximetry 97 99 98 Oxygen Delivery Me thod OxyMask OxyMask OxyMask Oxygen Flow Rate 3 4 3 02/02/23 15:32 02/02/23 15:33 02/02/23 15:45 Temperature Pulse Rate 90 90 80 Pulse Rate [Left P ulse Oximeter] Pulse Rate [Pulse Oximeter] Respiratory Rate Blood Pressure 108/76 Blood Pressure [Ri ght Arm] Blood Pressure [Ri ght Upper Arm] Pulse Oximetry 96 96 96 Oxygen Delivery Me thod OxyMask OxyMask OxyMask Oxygen Flow Rate 3 3 3 02/02/23 16:00 02/02/23 16:02 02/02/23 16:15 Temperature Pulse Rate 92 100 96 Pulse Rate [Left P ulse Oximeter] Pulse Rate [Pulse Oximeter] Respiratory Rate Blood Pressure 111/79 Blood Pressure [Ri ght Arm] Blood Pressure [Ri ght Upper Arm] Pulse Oximetry 97 97 96 Oxygen Delivery Me thod OxyMask OxyMask OxyMask Oxygen Flow Rate 3 3 3 02/02/23 16:52 02/02/23 16:52 02/02/23 17:18 Temperature 98.3 F 98.3 F Pulse Rate Pulse Rate [Left P ulse Oximeter] 92 80 Pulse Rate [Pulse Oximeter] Respiratory Rate 22 22 22 Blood Pressure Blood Pressure [Ri ght Arm] 109/91 H 109/91 H Blood Pressure [Ri ght Upper Arm] Pulse Oximetry 95 92 94 Oxygen Delivery Me thod OxyMask Nasal Cannula OxyMask Oxygen Flow Rate 2 3 3 02/02/23 17:39 02/02/23 18:06 02/02/23 19:30 Temperature 97.9 F Pulse Rate 94 Pulse Rate [Left P ulse Oximeter] 85 94 Pulse Rate [Pulse Oximeter] Respiratory Rate 20 20 Blood Pressure Blood Pressure [Ri ght Arm] 111/85 121/85 Blood Pressure [Ri ght Upper Arm] Pulse Oximetry 93 90 Oxygen Delivery Me thod Nasal Cannula Nasal Cannula Oxygen Flow Rate 3 3 02/02/23 19:30 02/02/23 20:00 02/02/23 20:30 Temperature 97.9 F 97.8 F Pulse Rate 94 Pulse Rate [Left P ulse Oximeter] 94 92 Pulse Rate [Pulse Oximeter] Respiratory Rate 20 20 Blood Pressure Blood Pressure [Ri ght Arm] 121/85 117/89 Blood Pressure [Ri ght Upper Arm] Pulse Oximetry 90 90 Oxygen Delivery Me thod Nasal Cannula Nasal Cannula Oxygen Flow Rate 3 3 02/02/23 22:00 02/02/23 22:00 02/03/23 00:05 Temperature 97.8 F Pulse Rate 72 Pulse Rate [Left P ulse Oximeter] 79 79 Pulse Rate [Pulse Oximeter] Respiratory Rate 18 18 Blood Pressure Blood Pressure [Ri ght Arm] 93/73 93/73 Blood Pressure [Ri ght Upper Arm] Pulse Oximetry 91 91 Oxygen Delivery Me thod Nasal Cannula Nasal Cannula Oxygen Flow Rate 3 3 02/03/23 00:05 02/03/23 00:05 02/03/23 00:05 Temperature 97.5 F L Pulse Rate Pulse Rate [Left P ulse Oximeter] 75 75 Pulse Rate [Pulse Oximeter] Respiratory Rate 20 20 20 Blood Pressure Blood Pressure [Ri ght Arm] 90/56 L Blood Pressure [Ri ght Upper Arm] Pulse Oximetry 90 90 Oxygen Delivery Me thod Nasal Cannula Nasal Cannula Oxygen Flow Rate 3 3 02/03/23 01:00 02/03/23 02:00 02/03/23 03:00 Temperature Pulse Rate Pulse Rate [Left P ulse Oximeter] 74 77 75 Pulse Rate [Pulse Oximeter] Respiratory Rate 18 18 16 Blood Pressure Blood Pressure [Ri ght Arm] 89/70 L 87/55 L Blood Pressure [Ri ght Upper Arm] Pulse Oximetry 96 95 Oxygen Delivery Me thod OxyMask OxyMask Oxygen Flow Rate 3 3 02/03/23 04:00 02/03/23 04:00 02/03/23 06:00 Temperature Pulse Rate 71 Pulse Rate [Left P ulse Oximeter] 75 79 Pulse Rate [Pulse Oximeter] Respiratory Rate 16 18 Blood Pressure Blood Pressure [Ri ght Arm] 95/77 97/71 Blood Pressure [Ri ght Upper Arm] Pulse Oximetry 94 94 Oxygen Delivery Me thod CPAP OxyMask Oxygen Flow Rate 3 2.5 Documenting provider has reviewed patient's vital signs: yes Labs Labs: Laboratory Results - last 24 hr 02/02/23 02/02/23 02/02/23 13:15 14:24 14:55 WBC 12.04 H RBC 6.28 H Hgb 20.0 H Hct 58.7 H MCV 94 MCH 32 MCHC 34 RDW Coeff of Jonel 14.5 Plt Count 169 Neut % (Auto) 79.2 H Lymph % (Auto) 11.6 L [place] % (Auto) 8.0 Eos % (Auto) 0.6 Baso % (Auto) 0.3 Neut # (Auto) 9.50 H Lymph # (Auto) 1.40 [place] # (Auto) 1.00 H Eos # (Auto) 0.10 Baso # (Auto) 0.00 Abs Immat Gran (auto) 0.00 Imm/Tot Granulo (auto) 0.3 D-Dimer Quant (PE/DVT) 1.96 H VBG pH 7.457 H VBG pCO2 49 VBG pO2 63.7 H VBG HCO3 35 H Sodium 126 L Potassium 3.9 Chloride 84 L Carbon Dioxide 34 H BUN 21 Creatinine 0.6 Estimated Creat Clear 48.43 Estimated GFR 100 Glucose 133 H Lactate Calcium 9.4 Phosphorus Magnesium Total Bilirubin 1.6 H Direct Bilirubin 0.4 AST 35 ALT 29 Alkaline Phosphatase 70 Troponin I 0.02 C-Reactive Protein NT-Pro-B Natriuret Pep 6810 Total Protein 6.5 Albumin 3.9 TSH SARS-CoV-2 (PCR) Negative SARS-CoV-2 Lab Acknowledgement 02/02/23 02/03/23 18:42 06:10 WBC 11.16 H RBC 6.08 H Hgb 19.5 H Hct 58.5 H MCV 96 MCH 32 MCHC 33 RDW Coeff of Jonel 15.3 Plt Count 147 Neut % (Auto) 75.3 H Lymph % (Auto) 12.7 L [place] % (Auto) 10.0 Eos % (Auto) 1.0 Baso % (Auto) 0.6 Neut # (Auto) 8.40 H Lymph # (Auto) 1.40 [place] # (Auto) 1.10 H Eos # (Auto) 0.10 Baso # (Auto) 0.10 Abs Immat Gran (auto) 0.00 Imm/Tot Granulo (auto) 0.4 D-Dimer Quant (PE/DVT) VBG pH 7.339 VBG pCO2 73 H* VBG pO2 30.3 VBG HCO3 39 H Sodium 128 L Potassium 3.7 Chloride 87 L Carbon Dioxide 38 H BUN 18 Creatinine 0.6 Estimated Creat Clear 48.43 Estimated GFR 100 Glucose 106 Lactate 0.9 Calcium 8.8 Phosphorus 4.3 Magnesium 1.8 Total Bilirubin 1.0 Direct Bilirubin AST 33 ALT 26 Alkaline Phosphatase 54 Troponin I 0.02 C-Reactive Protein 1.1 H NT-Pro-B Natriuret Pep 3040 Total Protein 6.2 Albumin 3.4 TSH 1.220 SARS-CoV-2 (PCR) Lab Acknowledgement Test Added
[2023-02-03] MEDS: BUDESONIDE 0.5 MG/2ML NEB NEB ×2 (09:20→20:56)
[2023-02-03] MEDS: ALBUTEROL INHALER 2 PUFF IH ×4 (09:20→20:55)
[2023-02-03] MEDS: MULTIVITAMIN/MINERALS 1 TABLET 1 TAB PO (09:21)
[2023-02-03] MEDS: APIXABAN 5 MG TABLET PO ×2 (09:21→20:56)
[2023-02-03] MEDS: ACETAMINOPHEN 325 MG TABLET 650 MG PO ×4 (09:21→20:54)
[2023-02-03] MEDS: dilTIAZem 120 MG CAP.ER.24H PO (09:21)
[2023-02-03] MEDS: GABAPENTIN 300 MG CAPSULE PO ×2 (09:21→20:55)
[2023-02-03] MEDS: acetaZOLAMIDE 250 MG TABLET PO ×2 (09:21→20:54)
[2023-02-03] MEDS: FOLIC ACID 1 MG TABLET PO (09:21)
[2023-02-03] MEDS: METOPROLOL SUCCINATE (XL) 50 MG TAB PO (09:21)
[2023-02-03] MEDS: FUROSEMIDE 20 MG TABLET PO ×2 (09:22→13:41)
[2023-02-03] MEDS: predniSONE 20 MG TABLET 40 MG PO (09:22)
[2023-02-03] MEDS: cloNIDine HCL 0.1 MG TABLET 0.05 MG PO ×2 (09:22→20:56)
[2023-02-03] MEDS: SODIUM CHLORIDE 0.9 % (FLUSH) 10 ML SYRINGE 5 ML IVF ×2 (09:32→20:57)
--- NOTE | 2023-02-03 11:17 | PC.SOCIAL ---
Discharge Planning: Spoke with patient, Cornelia and daughter, Lashanda [phone]. aLshanda lives across the [address] in another building from Cornelia. Cornelia would like to be able to go home to her apartment and cat when discharged. Lashanda states that she is able to help Cornelia. Social work to follow up as needed.
[2023-02-03] MEDS: METOPROLOL TARTRATE 25 MG TABLET PO (12:15)
--- NOTE | 2023-02-03 14:58 | NUTR.NU ---
Nutrition education provided on a low sodium diet related to congestive heart failure.? Verbal and written information provided. Recommend limiting sodium to 2,000 mg per day.? Discussed foods recommended and to avoid.? Handouts provided from [facility] on heart failure nutrition therapy, sodium content of foods, heart healthy label reading tips, sodium-free flavoring tips and heart healthy cooking and shopping tips.? Patient verbalized understanding.?? RD briefly discussed alcohol intake with pt. Pt states she drinks 3-4 beers per day and spreads them out throughout the day and states it is not a problem at all. Impact of alcohol on overall nutrition as well as liver was briefy reviewed. Pt showed no interest in any further conversation. RDN's contact information was provided and patient was encouraged to call with questions.?
[2023-02-03] MEDS: NICOTINE 14 mg PATCH 1 PATCH TRANSDERMA (17:28)
[2023-02-03] MEDS: THIAMINE 100 MG TABLET PO (17:28)
--- NOTE | 2023-02-03 18:03 | PC.NURSE ---
End of Shift note: Patient alert and oriented x4, Pleasant and cooperative, VSS Q2 hrs, CIWA score 0, changed to Qshift per MD Cody unless meeting parameters for Ativan. Patient on 1500cc fluid restriction and tolerating well, needs reminders why. +2 pitting Edema bilaterally, knee high compression stockings applied today. Ecco completed today, see report. IV in left and right AC SL. A-Fib on tele. Diltiazem drip paused today and morning dose of Metoprolol has been increased and patient received additional PRN dose of 25mg per MD Gustafson and Diltiazem drip was paused this AM see eMar. See eMar for PRN metoprolol parameters. Nicotine Patch to left shoulder. Patient on 1 L NC, may need oxymask for sleeping when mouth breathing. Per RT keep patient at 88-90% on 1 L NC. Patient retains CO2 and keeping her on the lower side is the goal for oxygen therapy. Patient ambulates SBA to BR. Patient has a productive cough, encouraged to spit out phlegm.
[2023-02-04 03:00] VITALS: PULSE 91; RESP 20; O2SAT 87
--- NOTE | 2023-02-04 06:08 | PC.NURSE ---
[id number]: Patient talkative and pleasant. C/o chronic discomfort to back but denies new pain. Overnight oximetry study complete. 1 Lt Oxymask applied after 30 minutes off O2. Sats remained between 84-87 percent during noc. Nicotine patch on L. shoulder intact. Tele reads A-fib with a rate 80-100. SBA. Denies SOB.
[2023-02-04 06:39] LABS: Basophils Percent Auto 0.1 % (0.0-3.0); Eosinophils Percent Auto 0.5 % (0.0-7.0); Hemoglobin* 19.2 gm/dL (12.0-16.0); Immature Granulocytes Pct Auto 0.5 %; Lymphocytes Percent Auto 11.1 % (20-44); Mean Corpuscular HGB Conc 32 gm/dL (32-36); Mean Corpuscular Hemoglobin 32 pg (26-34); Mean Corpuscular Volume 99 fL (80-100); Monocytes Percent Auto 8.7 % (0.0-11.0); Neutrophils Percent Auto 79.1 % (42.0-72.0); Platelet Count* 165 K/uL (140-440); RDW Coefficient of Variation % 14.8 % (11.5-15.5); Red Blood Count 6.05 m/uL (4.00-5.20); White Blood Count* 13.39 K/uL (4.50-11.00)
--- NOTE | 2023-02-04 06:42 | PM.IMPN1 ---
Progress Note: A&P Assessment and plan (1) Respiratory failure with hypoxia and hypercapnia: Problem details: - likely acute on chronic, multifactorial (COPD exacerbation, CHF exacerbation, undiagnosed [place]) - Hypercapnic with oxygen supplementation in the evenings - Acetazolamide initiated 02/03 to address contraction alkalosis with diuresis Status: Acute (2) Atrial fibrillation with rapid ventricular response: Problem details: - admitted on diltiazem drip, transitioned to oral Metoprolol 02/03 - anticoagulated on Apixaban Status: Acute (3) Acute on chronic heart failure: Problem details: - Pleural effusions and LE edema, hypoxia - continue rate control for afib, diurese with Furosemide - TTE obtained 02/03: Final Impressions: 1. Technically limited exam. 2. Normal left ventricular size, borderline wall thickness, normal global systolic function, calculated EF of 59 %. 3. Right ventricular cavity size is moderately enlarged, global systolic RV function is severely reduced. 4. Right ventricular volume and pressure overload. 5. The aortic valve is sclerotic, no stenosis and no regurgitation. 6. The mitral valve is normal, mild mitral regurgitation. 7. Tricuspid valve is non coapting. Severe tricuspid regurgitation. 8. The inferior vena cava is dilated, respiratory size variation less than 50%. Comparison There are no prior studies on this patient for comparison purposes. Status: Acute (4) Erythrocytosis: Problem details: 05/12/2022 hemoglobin 15.9, hematocrit 45.9. White blood cell count 10.7, platelet count 235. 12/10/2022 hemoglobin 19.7, hematocrit 59. White blood cell count 11.1, platelet count 150. 02/02/2023 hemoglobin 20.0, hematocrit 50.7. White blood cell count 12, platelet count 169. Etiology has yet to be determined. Certainly already hypoxic. Warrants heart failure stabilization. Consider overnight oximetry in hospital after the 1st night. Consider obtaining an erythropoietin level in the outpatient setting and appropriate follow-up. Status: Acute (5) Hyponatremia: Problem details: - Sodium 126 on admission, increased to 131 on 02/04 - likely 2/2 CHF, possibly increased free water intake, also noted to have incidental pulmonary nodules on CT that will require outpatient follow-up - continue to follow sodium, will d/c fluid restriction on 02/04 as patient will not be following this is an outpatient Status: Acute (6) COPD exacerbation: Problem details: - Prednisone (40mg initiated 02/03) and nebs, RT following Status: Acute (7) Hypertension: Problem details: - home medications include Clonidine 0.1mg BID - given hypotension with new BB, decreased dose to 0.05mg BID on 02/03 - will decrease to HS only on 02/04 given persistent hypotension Status: Acute (8) Multiple pulmonary nodules: Problem details: - Radiologist recommends three-month (May 2023) follow-up CT scan to evaluate. Status: Acute (9) Alcohol use disorder: Problem details: - Acknowledges drinking 2-4 drinks daily, does not stop drinking to know if she has ever had alcohol withdrawals when not drinking - Already taking gabapentin daily, CIWA scores low for first 3 days of stay without concerning signs or symptoms of ETOH withdrawal Status: Acute Plan - per above - Eliquis for ppx - requires at least 1 more day for medication optimization, blood pressure management, heart rate evaluation - will likely need supplemental oxygen upon discharge Subjective Date Seen: 02/04/23 Interval history: Cornelia is a 63-year-old female admitted to the hospital on 02/02 for new onset of atrial fibrillation with rapid ventricular response (noted in the clinic, where she was seeing her PCP for lower extremity edema and progressive [place]). On admission, metoprolol was initiated, in addition till diltiazem drip. Diltiazem was transitioned to oral formulation on 02/03. Patient's heart rate has been improved on this regimen; she has had asymptomatic hypotension. We are subsequently weaning her clonidine. In addition to AFib with RVR, she has a COPD exacerbation and a long smoking history. She is motivated regarding smoking cessation and tolerating patch quite well. Exam Narrative: Exam Narrative: GEN: Alert and laying comfortably in bed, speaking in full sentences HEENT: EOMIs bilaterally, no scleral icterus CV: Irregularly irregular R: No wheezing noted, decreased bibasilar lung sounds Ext: wwp, BLE edema Neuro: No focal deficits Psych: Appropriate Const: Vital Signs, click to edit/add: Vital Signs - 24 hr 02/03/23 07:00 02/03/23 07:00 02/03/23 08:00 Temperature Pulse Rate 82 Pulse Rate [Left P ulse Oximeter] 88 Respiratory Rate 18 18 Blood Pressure [Ri ght Arm] Pulse Oximetry 92 Oxygen Delivery Me thod OxyMask Oxygen Flow Rate 2.5 02/03/23 08:00 02/03/23 08:00 02/03/23 09:47 Temperature 97.3 F L 97.3 F L 98.1 F Pulse Rate Pulse Rate [Left P ulse Oximeter] 88 88 99 Respiratory Rate 18 18 18 [facility] 115/80 115/80 109/77 Pulse Oximetry 92 92 91 Oxygen Delivery Me thod OxyMask OxyMask Nasal Cannula Oxygen Flow Rate 2.5 2.5 1 02/03/23 11:00 02/03/23 12:00 02/03/23 12:00 Temperature 98.1 F Pulse Rate 91 Pulse Rate [Left P ulse Oximeter] 89 104 H Respiratory Rate 18 18 Blood [facility] 94/73 Pulse Oximetry 90 Oxygen Delivery Me thod Nasal Cannula Oxygen Flow Rate 1 02/03/23 13:51 02/03/23 14:30 02/03/23 14:30 Temperature 97.7 F Pulse Rate Pulse Rate [Left P ulse Oximeter] 84 92 Respiratory Rate 18 18 18 Blood Pressure [facility] 96/72 Pulse Oximetry 89 89 Oxygen Delivery Me thod Nasal Cannula Nasal Cannula Oxygen Flow Rate 1 1 02/03/23 15:46 02/03/23 15:52 02/03/23 16:00 Temperature 97.7 F 97.7 F Pulse Rate 81 Pulse Rate [Left P ulse Oximeter] 92 78 Respiratory Rate 18 20 Blood Pressure [facility] 96/72 101/69 Pulse Oximetry 89 88 Oxygen Delivery Me thod Nasal Cannula Nasal Cannula Oxygen Flow Rate 1 1 02/03/23 17:52 02/03/23 19:49 02/03/23 22:03 Temperature 97.7 F 97.0 F L 96.8 F L Pulse Rate Pulse Rate [Left P ulse Oximeter] 75 77 91 Respiratory Rate 20 22 20 Blood Pressure [facility] 100/69 98/71 95/62 Pulse Oximetry 88 88 88 Oxygen Delivery Me thod Nasal Cannula Nasal Cannula Nasal Cannula Oxygen Flow Rate 1 1.0 1.0 02/03/23 22:23 02/03/23 22:24 02/03/23 22:25 Temperature 96.8 F L Pulse Rate Pulse Rate [Left P ulse Oximeter] 91 Respiratory Rate 20 20 Blood Pressure [Ri ght Arm] 95/62 Pulse Oximetry 88 88 88 Oxygen Delivery Me thod Nasal Cannula Nasal Cannula Oxygen Flow Rate 1.0 1.0 02/03/23 22:51 02/04/23 03:00 Temperature Pulse Rate 89 Pulse Rate [Left P ulse Oximeter] 91 Respiratory Rate 20 Blood Pressure [Ri ght Arm] Pulse Oximetry 87 L Oxygen Delivery Me thod OxyMask Oxygen Flow Rate 1.0 Labs Labs: Laboratory Results - last 24 hr 02/03/23 06:10 Carbon Dioxide 38 H BUN 18 Glucose 106 Calcium 8.8 Phosphorus 4.3 Magnesium 1.8 AST 33 ALT 26 Alkaline Phosphatase 54 Troponin I 0.02 C-Reactive Protein 1.1 H NT-Pro-B Natriuret Pep 3040 Total Protein 6.2 TSH 1.220
[2023-02-04 06:51] LABS: Chloride* 87 mmol/L (96-114)
[2023-02-04 06:52] LABS: Sodium* 131 mmol/L (135-149)
[2023-02-04 06:55] LABS: Blood Urea Nitrogen* 18 mg/dL (7-30); Calcium* 9.3 mg/dL (8.4-10.6); Carbon Dioxide* 37 mmol/L (20-32); Creatinine* 0.7 mg/dL (0.5-1.5); Est. Creatinine Clearance* 48.43; Estimated Glomerular Filt Rate 96 ml/min; Glucose* 121 mg/dL (60-115)
[2023-02-04 07:00] VITALS: BP 100/74; PULSE 106; PULSE 95; RESP 20; TEMP 36.1; O2SAT 106; O2SAT 91
[2023-02-04 07:13] LABS: Slide Review Reflex No
[2023-02-04] MEDS: predniSONE 20 MG TABLET 40 MG PO (07:24)
[2023-02-04] MEDS: FUROSEMIDE 20 MG TABLET PO ×2 (07:25→14:05)
[2023-02-04 07:51] LABS: ABG PCO2 54 mmHG (35-45); Base Excess ABG 4.6 mmol/L (-3.0-3.0); Carboxyhemoglobin* 2.3 % (0.0-5.0); HCO3 ABG 32 mmol/L (21-28); Oxygen Saturation ABG 94 % (92-100); PO2 ABG 68.8 mmHG (80-105); TCO2 ABG 27 mmol/l (21-30); pH ABG 7.38 (7.35-7.45)
[2023-02-04] MEDS: ACETAMINOPHEN 325 MG TABLET 650 MG PO ×3 (08:06→20:07)
[2023-02-04] MEDS: dilTIAZem 120 MG CAP.ER.24H PO (08:07)
[2023-02-04] MEDS: APIXABAN 5 MG TABLET PO ×2 (08:07→20:08)
[2023-02-04] MEDS: METOPROLOL SUCCINATE (XL) 50 MG TAB PO (08:07)
[2023-02-04] MEDS: MULTIVITAMIN/MINERALS 1 TABLET 1 TAB PO (08:08)
[2023-02-04] MEDS: acetaZOLAMIDE 250 MG TABLET PO ×2 (08:08→20:09)
[2023-02-04] MEDS: GABAPENTIN 300 MG CAPSULE PO ×2 (08:08→20:08)
[2023-02-04] MEDS: FOLIC ACID 1 MG TABLET PO (08:08)
[2023-02-04] MEDS: BUDESONIDE 0.5 MG/2ML NEB NEB ×2 (08:09→20:20)
[2023-02-04] MEDS: ALBUTEROL INHALER 2 PUFF IH ×4 (08:09→20:11)
[2023-02-04] MEDS: SODIUM CHLORIDE 0.9 % (FLUSH) 10 ML SYRINGE 5 ML IVF ×2 (08:10→20:13)
[2023-02-04] MEDS: METOPROLOL TARTRATE 25 MG TABLET PO ×2 (09:43→20:44)
[2023-02-04 11:00] VITALS: BP 102/76; PULSE 99; RESP 20; TEMP 36.1; O2SAT 91
[2023-02-04 14:57] VITALS: BP 110/98; PULSE 104; PULSE 91; RESP 18; TEMP 36.7; O2SAT 92
[2023-02-04] MEDS: NICOTINE 14 mg PATCH 1 PATCH TRANSDERMA (17:03)
[2023-02-04] MEDS: THIAMINE 100 MG TABLET PO (17:04)
--- NOTE | 2023-02-04 18:58 | PC.NURSE ---
End of Shift note: Patient alert and oriented x4, Pleasant and cooperative, VSS, CIWA score 0, IV in left and right AC SL. A-Fib on tele. Patient received Metoprolol x1 PRN dose of 25mg see eMar. See eMar for PRN metoprolol parameters. Nicotine Patch to posterior right shoulder. Patient on 1 L NC and then reduced to 0.5 throughout shift, may need oxymask for sleeping when mouth breathing. Per RT keep patient at 88-90%. Patient retains CO2 and keeping her on the lower side is the goal for oxygen therapy. Patient ambulates SBA to BR. Patient has a productive cough, encouraged to spit out phlegm.
[2023-02-04 19:00] VITALS: BP 121/96; PULSE 98; RESP 18; TEMP 36.2; O2SAT 91
[2023-02-04] MEDS: cloNIDine HCL 0.1 MG TABLET 0.05 MG PO (20:08)
[2023-02-04 23:00] VITALS: PULSE 86; RESP 18; O2SAT 91
[2023-02-05 03:00] VITALS: BP 107/88; PULSE 84; RESP 20; TEMP 36.2; O2SAT 92
--- NOTE | 2023-02-05 05:31 | PC.NURSE ---
Pt pleasant and cooperative, A&O. Denied pain, CP, and N/V. Reported SOB at exertion which improved at rest. On 0.5L O2 PNC initially, when pt went to sleep switched over to OxyMask r/t to mouth breathing, pt's oxygen saturation was dropping to low 80's once asleep, increased oxygen to 1L with oxygen saturation 88%+. Tele a-fib, pt given PRN Metoprolol x1 at HS for resting HR >100, effective. Up SBA and tolerating well.
[2023-02-05 06:40] LABS: HCO3 VBG 32 mmol/L (21-28); PCO2 VBG 55 mmHG (40-50); PO2 VBG 62.3 mmHG (25-47); pH VBG 7.369 (7.32-7.43)
[2023-02-05 06:57] LABS: Basophils Percent Auto 0.3 % (0.0-3.0); Eosinophils Percent Auto 1.5 % (0.0-7.0); Hematocrit 58.8 % (33.0-51.0); Immature Granulocytes Pct Auto 0.4 %; Lymphocytes Percent Auto 12.6 % (20-44); Mean Corpuscular HGB Conc 32 gm/dL (32-36); Mean Corpuscular Hemoglobin 32 pg (26-34); Mean Corpuscular Volume 100 fL (80-100); Monocytes Percent Auto 8.6 % (0.0-11.0); Neutrophils Percent Auto 76.6 % (42.0-72.0); Platelet Count* 130 K/uL (140-440); RDW Coefficient of Variation % 15.6 % (11.5-15.5); Red Blood Count 5.89 m/uL (4.00-5.20); White Blood Count* 14.31 K/uL (4.50-11.00)
[2023-02-05 07:00] VITALS: BP 115/86; PULSE 90; PULSE 93; RESP 20; TEMP 36.1; O2SAT 92
[2023-02-05 07:03] LABS: Slide Review Reflex No
[2023-02-05 07:45] LABS: Albumin* 3.3 g/dL (3.3-5.0); Chloride* 91 mmol/L (96-114)
[2023-02-05 07:46] LABS: Sodium* 132 mmol/L (135-149)
[2023-02-05 07:48] LABS: Alkaline Phosphatase* 51 U/L (40-150); Aspartate Amino Transferase* 34 U/L (12-35); Bilirubin Total* 0.7 mg/dL (0.1-1.5); Blood Urea Nitrogen* 21 mg/dL (7-30); Carbon Dioxide* 37 mmol/L (20-32); Creatinine* 0.9 mg/dL (0.5-1.5); Est. Creatinine Clearance* 48.43; Estimated Glomerular Filt Rate 71 ml/min; Total Protein* 5.7 g/dL (6.0-8.3)
[2023-02-05 07:49] LABS: Alanine Aminotransferase* 29 U/L (4-35); Calcium* 9.1 mg/dL (8.4-10.6); Glucose* 92 mg/dL (60-115)
[2023-02-05] MEDS: ALBUTEROL INHALER 2 PUFF IH (08:21)
[2023-02-05] MEDS: acetaZOLAMIDE 250 MG TABLET PO (08:22)
[2023-02-05] MEDS: GABAPENTIN 300 MG CAPSULE PO (08:24)
[2023-02-05] MEDS: FUROSEMIDE 20 MG TABLET PO (08:24)
[2023-02-05] MEDS: APIXABAN 5 MG TABLET PO (08:24)
[2023-02-05] MEDS: dilTIAZem 120 MG CAP.ER.24H PO (08:25)
[2023-02-05] MEDS: MULTIVITAMIN/MINERALS 1 TABLET 1 TAB PO (08:25)
[2023-02-05] MEDS: predniSONE 20 MG TABLET 40 MG PO (08:25)
[2023-02-05] MEDS: ACETAMINOPHEN 325 MG TABLET 650 MG PO (08:25)
[2023-02-05] MEDS: METOPROLOL SUCCINATE (XL) 50 MG TAB PO (08:25)
[2023-02-05] MEDS: FOLIC ACID 1 MG TABLET PO (08:25)
[2023-02-05] MEDS: BUDESONIDE 0.5 MG/2ML NEB NEB (08:26)
[2023-02-05] MEDS: SODIUM CHLORIDE 0.9 % (FLUSH) 10 ML SYRINGE 5 ML IVF (08:29)
--- NOTE | 2023-02-05 09:11 | W.PM.HOT ---
Acute Home Oxygen Therapy Acute Home Oxygen Therapy Provider Note Provider Note: Patient was admitted on 02/02/23 at 18:18 and will be discharging on 02/05/2023. Patient is desaturating with SATs of 87% on room air due to COPD. Alternative therapies have been attempted and have not been successful in maintaining the patient's saturation level above 88%. Supplemental O2 is required. This patient is mobile within the home and requires portability.
[2023-02-05] MEDS: METOPROLOL TARTRATE 25 MG TABLET PO (11:29)
--- NOTE | 2023-02-05 12:30 | PC.NURSE ---
Discharge and shift note: Patient alert and oriented x4, Pleasant and cooperative, VSS, CIWA score 0, IV in left and right AC removed intact. A-Fib on tele. Patient received Metoprolol x1 PRN dose of 25mg see eMar. See eMar for PRN metoprolol parameters. Nicotine Patch to posterior right shoulder. Patient on 1 L NC sating in 90's and tolerating well. Patient ambulates independently to BR and with PT in the hallway, tolerated activity well and cleared for discharge. Patient has a productive cough, encouraged to spit out phlegm. Discharged today with daughter to home. Education completed on home oxygen use and settings. Patient refused to take supplemental tank home so only the concentrator machine was sent. Patient educated on how much oxygen she should be using when at rest and ambulating. Patient was not happy about discharging and requested to stay another day because she does not like her current apartment. Discharge instructions given and signed by patient and she verbalized understanding of instructions and teaching. Patient educated on new home meds and doctor's appointments and follow up care. Belongings sheet also signed by patient. Patient was discharged today at 1215.
--- NOTE | 2023-02-05 12:48 | P.DS_ITS ---
DS: Providers Provider Date Seen: 02/05/23 Date of admission: 02/02/23 18:18 Primary care physician: Melissa Ramos MD Admitting Clinician: Eliseo Villareal MD Consults: SW, Nutrition, RT, PT Attending Physician on discharge: Yumiko Ross MD Date of Discharge: 02/05/23 DS: Diagnosis Discharge Diagnosis (1) Respiratory failure with hypoxia and hypercapnia: Status: Acute Problem details: - likely acute on chronic, multifactorial (COPD exacerbation, CHF exacerbation, undiagnosed DENVER) - Hypercapnic with oxygen supplementation in the evenings - treated with Acetazolamide (02/03-02/05) to address contraction alkalosis with diuresis, VBG baseline upon d/c (2) Atrial fibrillation with rapid ventricular response: Status: Acute Problem details: - admitted on diltiazem drip, transitioned to oral Metoprolol and oral Diltiazem 02/03 with appropriate rate control - anticoagulated on Apixaban (3) Acute on chronic heart failure: Status: Acute Problem details: - Pleural effusions and LE edema, hypoxia - continue rate control for afib, diurese with Furosemide - TTE obtained 02/03: Final Impressions: 1. Technically limited exam. 2. Normal left ventricular size, borderline wall thickness, normal global systolic function, calculated EF of 59 %. 3. Right ventricular cavity size is moderately enlarged, global systolic RV function is severely reduced. 4. Right ventricular volume and pressure overload. 5. The aortic valve is sclerotic, no stenosis and no regurgitation. 6. The mitral valve is normal, mild mitral regurgitation. 7. Tricuspid valve is non coapting. Severe tricuspid regurgitation. 8. The inferior vena cava is dilated, respiratory size variation less than 50%. Comparison There are no prior studies on this patient for comparison purposes. (4) Erythrocytosis: Status: Acute Problem details: 05/12/2022 hemoglobin 15.9, hematocrit 45.9. White blood cell count 10.7, platelet count 235. 12/10/2022 hemoglobin 19.7, hematocrit 59. White blood cell count 11.1, platelet count 150. 02/02/2023 hemoglobin 20.0, hematocrit 50.7. White blood cell count 12, platelet count 169. Etiology has yet to be determined. Certainly already hypoxic. Warrants heart failure stabilization. Consider overnight oximetry in hospital after the 1st night. Consider obtaining an erythropoietin level in the outpatient setting and appropriate follow-up. (5) Hyponatremia: Status: Acute Problem details: - Sodium 126 on admission, increased to 131 on 02/04 - likely 2/2 CHF, possibly increased free water intake, also noted to have incidental pulmonary nodules on CT that will require outpatient follow-up - continue to follow sodium, will d/c fluid restriction on 02/04 as patient will not be following this is an outpatient (6) COPD exacerbation: Status: Acute Problem details: - Prednisone (40mg initiated 02/03) and nebs, RT following (7) Hypertension: Status: Acute Problem details: - home medications include Clonidine 0.1mg BID - given hypotension with new BB, decreased dose to 0.05mg BID on 02/03, then to HS only on 02/04 - no evidence of withdrawal symptoms; Clonidine discontinued upon discharge (8) Multiple pulmonary nodules: Status: Acute Problem details: - Radiologist recommends three-month (May 2023) follow-up CT scan to evaluate (9) Alcohol use disorder: Status: Acute Problem details: - Acknowledges drinking 2-4 drinks daily, does not stop drinking to know if she has ever had alcohol withdrawals when not drinking - family concerned about patient's ETOH intake; recommend total abstinence upon d/c - CIWA scores wnl during stay, did not require specific withdrawal therapies DS: Summary Hospital Course Hospital Course: Cornelia is a pleasant 63-year-old female who was admitted to hospital on 02/05 in new onset AFib with RVR (noted while at a clinic appointment - was being seen for lower extremity edema and exhaustion). She was initially treated with a diltiazem drip and oral metoprolol, then transitioned to oral diltiazem with appropriate rate control. Given new medications, she was found to be hypotensive (asymptomatic, able to walk with therapies without dizziness or lightheadedness), so previous home medications of amlodipine and clonidine were discontinued (clonidine tapered during stay). TTE obtained with right-sided findings as noted above. Patient also found to be in acute hypoxic respiratory failure, likely combination of COPD exacerbation and undiagnosed DENVER. She improved with supplemental oxygen and prednisone; noted evidence of CO2 retention and recommend outpatient sleep study to further evaluate. She met criteria to go home with oxygen supplementation, both smoking and alcohol cessation recommended upon discharge. Patient verbalizes understanding of these recommendations. Cornelia was medically appropriate for discharge home on 02/05, picked up by daughter and will have close PCP follow-up. Time spent discussing smoking cessation with patient: 3 to 10 minutes Status at Discharge Functional status at discharge: independent ambulation Overall status at discharge: patient is progressing back to baseline Time Spent with Patient Time attestation: Total time spent providing and/or coordinating discharge services: Time spent: Greater than 30 minutes Specific discharge activities: Medication reconciliation, home oxygen therapy coordination Exam Narrative: Exam Narrative: GEN: Alert and oriented, sitting comfortably at edge of bed CV: Irregularly irregular with rate in the 80s, no concerning murmurs R: Bibasilar rhonchi, air movement adequate Ext: 2-3+ pitting edema bilaterally, improved from admission Neuro: Nonfocal Psych: Appropriate Const: Vital Signs, click to edit/add: Vital Signs - 24 hr 02/04/23 14:57 02/04/23 14:57 02/04/23 14:57 Temperature 98.0 F Pulse Rate 104 H Pulse Rate [Left P ulse Oximeter] 91 Respiratory Rate 18 Blood Pressure [Ri ght Arm] 110/98 H Pulse Oximetry 92 92 Oxygen Delivery Me thod Nasal Cannula Oxygen Flow Rate 0.5 02/04/23 14:57 02/04/23 14:57 02/04/23 19:00 Temperature 97.1 F L Pulse Rate Pulse Rate [Left P ulse Oximeter] 91 98 Respiratory Rate 18 18 18 Blood Pressure [Ri ght Arm] 121/96 H Pulse Oximetry 92 91 Oxygen Delivery Me thod Nasal Cannula Nasal Cannula Oxygen Flow Rate 0.5 0.5 02/04/23 23:00 02/04/23 23:00 02/04/23 23:00 Temperature Pulse Rate 86 Pulse Rate [Left P ulse Oximeter] 86 Respiratory Rate 18 Blood Pressure [Ri ght Arm] Pulse Oximetry 91 91 Oxygen Delivery Me thod Nasal Cannula Oxygen Flow Rate 1 02/04/23 23:00 02/04/23 23:00 02/05/23 03:00 Temperature 97.2 F L Pulse Rate Pulse Rate [Left P ulse Oximeter] 86 84 Respiratory Rate 18 18 20 Blood Pressure [Ri ght Arm] 107/88 Pulse Oximetry 91 92 Oxygen Delivery Me thod Nasal Cannula Nasal Cannula Oxygen Flow Rate 1 1 02/05/23 07:00 02/05/23 07:00 02/05/23 07:00 Temperature 97.0 F L Pulse Rate 90 Pulse Rate [Left P ulse Oximeter] 93 Respiratory Rate 20 Blood Pressure [Ri ght Arm] 115/86 Pulse Oximetry 92 92 Oxygen Delivery Me thod Nasal Cannula Oxygen Flow Rate 1 02/05/23 07:00 02/05/23 07:00 Temperature Pulse Rate Pulse Rate [Left P ulse Oximeter] 93 Respiratory Rate 20 20 Blood Pressure [Ri ght Arm] Pulse Oximetry 92 Oxygen Delivery Me thod Nasal Cannula Oxygen Flow Rate 1 DS: Data Data Completed and Pending Labs on day of discharge: Labs from last 24 hours 02/05/23 02/05/23 07:25 06:10 WBC 14.31 H RBC 5.89 H Hgb 19.0 H Hct 58.8 H MCV 100 MCH 32 MCHC 32 RDW Coeff of Jonel 15.6 H Plt Count 130 L Neut % (Auto) 76.6 H Lymph % (Auto) 12.6 L Dukes % (Auto) 8.6 Eos % (Auto) 1.5 Baso % (Auto) 0.3 Neut # (Auto) 11.00 H Lymph # (Auto) 1.80 Dukes # (Auto) 1.20 H Eos # (Auto) 0.20 Baso # (Auto) 0.00 Abs Immat Gran (auto) 0.10 Imm/Tot Granulo (auto) 0.4 VBG pH 7.369 VBG pCO2 55 H VBG pO2 62.3 H VBG HCO3 32 H Sodium 132 L Potassium 4.0 Chloride 91 L Carbon Dioxide 37 H BUN 21 Creatinine 0.9 Estimated Creat Clear 48.43 Estimated GFR 71 Glucose 92 Calcium 9.1 Total Bilirubin 0.7 AST 34 ALT 29 Alkaline Phosphatase 51 Total Protein 5.7 L Albumin 3.3 Discharge Plan Discharge Disposition: Home, Self-Care Date of Admission: 02/02/23 18:18 Attending Provider on Discharge: Yumiko Ross Primary Care Provider: Melissa Ramos Condition: Improved Anticipated Discharge Date/Time: 02/05/23 08:27 Discharge Medications: New metoprolol succinate 50 mg Tablet Extended Release 24 Hr 50 mg PO DAILY Qty: 30 0RF diltiazem HCl [DILT-XR] 120 mg Capsule,Ext.Rel 24h Degradable 120 mg PO DAILY Qty: 30 0RF Eliquis 5 mg Tablet 5 mg PO BID Qty: 60 0RF nicotine 14 mg/24 hr Patch 24 Hour 1 patch transdermal Q24H Qty: 28 0RF prednisone 10 mg tablet 10 mg PO DIRECTED Qty: 22 0RF Rx Instructions: 3 tabs Qd x 3d, then 2 tabs po Qd x 3d, then 1 tab po Qd x7d, then stop Continued fluticasone propion-salmeterol 250-50 mcg/dose blister with device 1 ea INHALATION BID gabapentin 300 mg capsule 300 mg PO BID raloxifene 60 mg tablet 60 mg PO DAILY furosemide 20 mg tablet 20 mg PO QAM acetaminophen 500 mg tablet 1,000 mg PO TID PRN albuterol sulfate 90 mcg/actuation HFA aerosol inhaler 1 - 2 puff INHALATION Q4H PRN (Reason: wheezing) Centrum Silver Women 8 mg iron-400 mcg-50 mcg tablet 1 tab PO DAILY Discontinued naproxen 375 mg tablet,delayed release (DR/EC) 375 mg PO BID PRN (Reason: pain) Qty: 30 0RF clonidine HCl 0.1 mg tablet 0.1 mg PO BID amlodipine 5 mg tablet 5 mg PO DAILY aspirin 81 mg tablet,chewable 1 tab PO DAILY Discharge Orders: Discharge Order (Routine); Ordered 02/05/23 Ordered By: Yumiko Ross Patient Education: Metoprolol (By mouth), Diltiazem (By mouth), Prednisone (By mouth), Nicotine (Absorbed through the skin) (Nicoderm CQ, Nicoderm CQ..., Apixaban (By mouth), A-fib (Atrial Fibrillation) (DC), Hyponatremia (DC), Using Oxygen at Home (DC), COPD (Chronic Obstructive Pulmonary Disease) (DC), Abuse of Alcohol (DC) Additional Instructions: We have made some medications changes (see above): STOP your Amlodipine and Clonidine START Diltiazem and Metoprolol (these are blood pressure medications that help your heart rhythm) START Eliquis (Blood thinner - you are at higher risk of a stroke with a fib) CONTINUE Nicotine patch - 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 We recommend quitting alcohol use totally - this can affect your heart rhythm and increase your risk of bleeding on the blood thinner. WEAR Oxygen as directed (1L at rest, 3L when active - make sure you turn it back down to 1L when you're at rest) until your followup appointment with Dr. Ramos. Activity Level: No strenuous activity and Other Discharge Diet: Heart Healthy (2 gm sodium, low fat) Diet Detail: follow diet recommendations from client service professional during your hospital stay. Follow Up Appointments: Melissa Ramos MD [Primary Care Provider] - [facility] Forms: [employer] Travel Guide Info Instructions
--- NOTE | 2023-02-05 18:11 | PC.NURSE ---
Pt called with issues picking up Rx due to insurance issues. [employer] contacted Pharmacy to set up plan for 2 days of medicines with RX coupons. Pt was contacted and agreed to plan and $ amount. Pt's daughter picked up medications and plans to sort out insurance issues Tuesday 02/06.
--- NOTE | 2023-02-05 18:17 | PC.NURSE ---
Pt called with concerns of POC making noises. Problem solved that pt did not have POC properly plugged in and therefore battery life had . Machine plugged in properly was still not not putting out O2. Asked pt to let charge for 10 minutes and try to turn on again. In the mean time, communications writer contacted [employer] and set up service call. Pt called back saying she had a call from [employer] but it was a call tree so she hung up and called m/s back. Machine at time of pt calling back is now putting out O2. Dairy Department Manager called [employer] back to cancel service call. Pt has no further questions or concerns at this time.
== END 2023-02-05 12:15 | disposition home or self-care (01) | DRG 189 ==
LOC: ED 15:31 → MEDSURG 16:29
PROVIDERS: Family Medicine; Admitting Provider Internal Medicine; Emergency Provider Internal Medicine; PCP Family Medicine; Visit Provider Internal Medicine
DX: J96.21 Acute and chronic respiratory failure with hypoxia (principal); I50.43 Acute on chronic combined systolic (congestive) and diastolic (congestive) heart failure; E87.1 Hypo-osmolality and hyponatremia; J44.1 Chronic obstructive pulmonary disease with (acute) exacerbation; I48.91 Unspecified atrial fibrillation; J96.22 Acute and chronic respiratory failure with hypercapnia; I11.0 Hypertensive heart disease with heart failure; G47.33 Obstructive sleep apnea (adult) (pediatric); I08.3 Combined rheumatic disorders of mitral, aortic and tricuspid valves; I27.20 Pulmonary hypertension, unspecified; F17.210 Nicotine dependence, cigarettes, uncomplicated; F10.90 Alcohol use, unspecified, uncomplicated; M48.062 Spinal stenosis, lumbar region with neurogenic claudication; I45.4 Nonspecific intraventricular block; D75.1 Secondary polycythemia; R91.8 Other nonspecific abnormal finding of lung field
CPT/HCPCS: 36415; 36600; 71045; 71260; 80048; 80053; 82248; 82803; 83605; 83735; 83880; 84100; 84443; 84484; 85025; 85379; 86140; 87635; 93005; 93306; 94640; 94761; 97161; 99284; 99291; A9153; A9270; J1940; J3490; J7030; J7512; J7626; Q9967; S4990

== ENCOUNTER 2023-02-09 12:09 | Outpatient (CLI) | payer MEDICAID, SELFPAY | END 2023-02-09 12:10 | disposition home or self-care (01) | LOC: AMB 02-13 09:51 | PROVIDERS: PCP Family Medicine; Visit Provider Family Medicine | DX: R10.9 Unspecified abdominal pain (principal); R58 Hemorrhage, not elsewhere classified | CPT/HCPCS: A0425; A0427 ==

== ENCOUNTER 2023-09-19 13:49 | Outpatient (CLI) | payer MEDICAID, SELFPAY ==
--- NOTE | 2023-09-19 13:45 | MR_ITS ---
Patient: JUANJOSE RAMOS Facility:?[facility] Patient ID:?[id number] Site Patient ID:?[id number]. Site :?[id number] Study:?MRI-Spine Lumbar W/O-09/19/2023 3:29:27 PM Ordering Physician:SANDER HAWTHORNE Final Report: Indication: Lumbar radiculopathy. Technique: T2, T1, and STIR sagittal as well as T1 and T2 axial sequences were obtained. No IV contrast. Comparison: 02/07/2018. Findings: There is low-grade degenerative anterolisthesis at L4-5 and L5-S1, as well as retrolisthesis at L3-4. The L4-5 subluxation has slightly progressed from 02/07/2018. Lumbar lordosis is prominently exaggerated. There is also mild right convex lumbar curvature which appears slightly increased. No evidence for recent fracture, worrisome bone lesion or pars defect. Chronic compression fractures along the superior endplates of L3 (mild) and L4 (moderate), stable from 02/07/2018. There is severe central canal stenosis at L4-5, progressed from 02/07/2018. This is associated with tortuosity of the cauda equina nerve roots. The conus medullaris is unremarkable, with the tip of the cord at the L1 level. No paraspinal pathology is identified. T12-L1: The disc is negative. The foramina are patent. No change from 02/07/2018. L1-2: Trace disc and facet degenerative changes. The foramina are patent. Stable. L2-3: Ballooning of the mildly degenerated disc. Trace facet degenerative changes. Mild foraminal narrowing. Stable. L3-4: Ballooning of the disc, which is severely degenerated laterally on the left. Mild facet osteoarthritis with tiny joint effusions. Moderately severe left foraminal narrowing with potential impingement on the left L3 nerve root, progressed from 02/07/2018. L4-5: Severe bilateral facet osteoarthritis with joint effusions and bilateral diastasis, 3 mm on the left and 2 mm on the right. There is a 7 mm midline cyst in the posterior spinal canal at the mid L5 level, presumed to originate from one of the generated facet joints. Grade 1 degenerative anterolisthesis. Moderate disc degeneration with prominent posterior disc bulging. Severe narrowing of the central canal with high-grade narrowing of both subarticular recesses. Moderate narrowing of both neural foramina. Moderate progression from the 2018 exam. L5-S1: Severe bilateral facet osteoarthritis. Moderate disc degeneration. Mild foraminal narrowing. Stable. Impression: 1. At L4-5 there is severe central canal stenosis and high-grade narrowing of both subarticular recesses, progressed from 02/07/2018. 2. At L3-4 there is moderately severe narrowing of the left neural foramen with potential impingement on the left L3 nerve root, also progressed. 3. Prominently exaggerated lumbar lordosis. The low-grade degenerative subluxation at L4-5 has slightly progressed from 02/07/2018. Dictated by Juan Miguel Joel MD @ 09/21/2023 9:29:21 AM Signed by:?Juan Miguel Joel MD @09/21/2023 9:29:21 AM (Electronic Signature)
== END 2023-09-19 13:50 | disposition home or self-care (01) ==
LOC: MRI 13:51
PROVIDERS: PCP Family Medicine; Visit Provider Nurse Practitioner Family
DX: M54.16 Radiculopathy, lumbar region (principal); M48.061 Spinal stenosis, lumbar region without neurogenic claudication; M40.46 Postural lordosis, lumbar region; M25.551 Pain in right hip
CPT/HCPCS: 72148

== ENCOUNTER 2024-02-16 12:59 | Emergency (ER) | payer OTHER, MEDICAID, SELFPAY ==
[2024-02-16 13:04] VITALS: BP 115/76; PULSE 120; RESP 18; TEMP 37.2; O2SAT 97; BMI 21.9
--- NOTE | 2024-02-16 13:26 | CRLHL7_ITS ---
For Patients: As a result of the Century Cures Act, medical imaging exams and procedure reports are released immediately into your electronic medical record. You may view this report before your referring provider. If you have questions, please contact your health care provider. Indication: Fall. Technique: AP pelvis 1 view. Comparison: None. Findings/Impression: No evident acute fracture or traumatic subluxation in the pelvis. Evaluation of the sacrum is limited by overlying bowel gas. Asymmetric severe right hip joint arthrosis. No acute soft tissue abnormalities. Dictated by Ezio Erazo MD @ 02/16/2024 2:03:47 PM (Electronically Signed)
--- NOTE | 2024-02-16 13:26 | CRLHL7_ITS ---
For Patients: As a result of the Century Cures Act, medical imaging exams and procedure reports are released immediately into your electronic medical record. You may view this report before your referring provider. If you have questions, please contact your health care provider. INDICATION: Fall. TECHNIQUE: Lumbar spine 3 view. COMPARISON: None. FINDINGS/IMPRESSION: Query mild compression deformities versus Schmorl`s nodes in the L3 and L4 superior endplates. These are age indeterminate. Grade 1 anterolisthesis of L4 on L5. These findings could be further characterized by CT, if clinically indicated. Severe right hip joint arthrosis. Unremarkable soft tissues. Dictated by Ezio Erazo MD @ 02/16/2024 2:00:35 PM (Electronically Signed)
--- NOTE | 2024-02-16 13:27 | ED.GENADULT ---
HPI - General Adult General Chief complaint: Back Injury/Pain Stated complaint: fall 3 days ago Time Seen by Provider: 02/16/24 13:26 History of Present Illness HPI narrative: This 64-year-old female comes in reporting pain in her low back and pelvis after a fall that occurred about 3 days ago. She has history of chronic pain and states that she is due to have a hip replacement in about 10 days. She states that she is taking oxycodone 10 mg 3 times daily for chronic pain but reports taking 4 times daily since this fall. She is able to ambulate and does so with the use of a cane. She was using a cane prior to this fall. Related Data Home Medications ?Medication ?Instructions ?Recorded ?Confirmed acetaminophen 500 mg tablet 1,000 mg PO TID PRN 02/02/23 02/02/23 albuterol sulfate 90 mcg/actuation 1 - 2 puff inhalation Q4H PRN 02/02/23 02/02/23 aerosol inhaler wheezing fluticasone 250 mcg-salmeterol 50 1 ea inhalation BID 02/02/23 02/02/23 mcg/dose blistr powdr for inhalation furosemide 20 mg tablet 20 mg PO QAM 02/02/23 02/02/23 gabapentin 300 mg capsule 300 mg PO BID 02/02/23 02/02/23 imifmldf-upjo-fabl 8 mg-folic 400 1 tab PO DAILY 02/02/23 02/02/23 mcg-K 50 mcg-lutein 300 mcg tablet (Centrum Silver Women) raloxifene 60 mg tablet 60 mg PO DAILY 02/02/23 02/02/23 Previous Rx's ?Medication ?Instructions ?Recorded apixaban 5 mg tablet (Eliquis) 5 mg PO BID #60 tabs 02/05/23 diltiazem HCl 120 mg 120 mg PO DAILY #30 caps 02/05/23 capsule,extended release 24 hr, controlled (DILT-XR) metoprolol succinate 50 mg 50 mg PO DAILY #30 tabs 02/05/23 tablet,extended release 24 hr nicotine 14 mg/24 hr daily 1 patch transdermal Q24H #28 ea 02/05/23 transdermal patch prednisone 10 mg tablet 10 mg PO DIRECTED #22 tabs 02/05/23 Allergies Allergy/AdvReac Type Severity Reaction Status Date / Time Penicillins AdvReac Unknown Hallucinati Verified 12/10/22 15:58 ng Review of Systems Status of ROS: Reports: 10 or more systems reviewed and unremarkable except as noted in History and below Narrative: Constitutional: No fevers, no weight gain or loss. Eyes: No discharge. No vision changes. HENT: No congestion, no sore throat, no ear pain. Cardiovascular: No chest pain, no palpitations. Respiratory: No shortness of breath, no wheezes, no cough. Gastrointestinal: No abdominal pain, no vomiting, no diarrhea. Genitourinary: No dysuria, no hematuria. Musculoskeletal: Chronic low back pain. Skin: No rashes, no pruritis. Neurological: No dizziness, weakness, sensory change, speech change. Endo/Heme/Allergies: No bruising or bleeding. No polydipsia. Pysch: no suicidality, no anxiety, no insomnia. All other systems reviewed and are negative. [facility] Medical History (Updated 02/16/24 @ 14:35 by Quinten Mayer MD) Acute on chronic heart failure ?I50.9 - Heart failure, unspecified (ICD-10) Erythrocytosis ?D75.1 - Secondary polycythemia (ICD-10) Atrial fibrillation ?I48.91 - Unspecified atrial fibrillation (ICD-10) Multiple pulmonary nodules ?R91.8 - Other nonspecific abnormal finding of lung field (ICD-10) Colon polyp ?K63.5 - Polyp of colon (ICD-10) Chronic bronchitis with COPD (chronic obstructive pulmonary disease) ?J44.9 - Chronic obstructive pulmonary disease, unspecified (ICD-10) Diverticulosis of colon ?K57.30 - Diverticulosis of large intestine without perforation or abscess without bleeding (ICD-10) Severe osteopetrosis ?Q78.2 - Osteopetrosis (ICD-10) Hyponatremia ?E87.1 - Hypo-osmolality and hyponatremia (ICD-10) Spinal stenosis of lumbar region with neurogenic claudication ?M48.062 - Spinal stenosis, lumbar region with neurogenic claudication (ICD-10) Cigarette smoker ?F17.210 - Nicotine dependence, cigarettes, uncomplicated (ICD-10) Alcohol use disorder ?F10.90 - Alcohol use, unspecified, uncomplicated (ICD-10) Hypertension ?I10 - Essential (primary) hypertension (ICD-10) Surgical History (Updated 02/02/23 @ 17:46 by Eliseo Villareal MD) History of loop electrosurgical excision procedure (LEEP) of cervix ?Z98.890 - Other specified postprocedural states (ICD-10) Status post colonoscopy with polypectomy ?Z98.890 - Other specified postprocedural states (ICD-10) Family History (Updated 02/02/23 @ 17:51 by Eliseo Villareal MD) Other CHF (congestive heart failure) Coronary artery disease Social History (Updated 02/02/23 @ 17:53 by Eliseo Villareal MD) Narrative: Lives alone. . Has social security disability related to her back. Designates her daughter, Jermaine Chu, cell phone number [phone], as her power of state attorney for health should that be required. Requests DNR DNI resuscitation status. What is your current living situation?: I presently have a place to live Problems where you live: pests, such as bugs, ants, or mice and mold Problems where you live details: mold/pests (building old) In the past 12 months, utilities in danger of being shut off: no In past 12 months, lack of transportation kept you from medical appts, meetings, work, or getting things needed for daily living: no In the past 12 mos, have been you worried that your food would run out before you had money to buy more?: never true In the past 12 mos, the food you bought just didn't last and you didn't have money to buy more?: never true Highest level of school completed/degree received: high school graduate Smoking Status: Current every day smoker What tobacco products do you use: cigarettes Smoking packs per day: 0.5 Smoking cigarettes per day: 10.0 Do you use any of these nicotine containing products: None Second hand tobacco smoke exposure: No How often do you have a drink containing alcohol: 4 or more times a week Alcohol type: beer How many standard drinks containing alcohol do you have on a typical day: 3 or 4 How often do you have six or more drinks on one occasion: Never AUDIT-C Alcohol total score: 5 Non-prescribed substance use: marijuana (any form) Non-prescribed substance use details: I smoke it as often as possible Caffeine: Yes How often does anyone, including family, friends and others, physically hurt you: never How often does anyone, including family, friends and others, insult or talk down to you: never How often does anyone, including family, friends and others, threaten you with harm: never How often does anyone, including family, friends and others, scream or curse at you: never service: No Exam Narrative: Exam Narrative: Constitutional: Well-developed, well-nourished, no acute distress. HEENT: Normocephalic, atraumatic. Neck: Normal range of motion. Nontender. Supple. Heart: Regular. No murmurs. Normal rate. Intact distal pulses. Lungs: Clear to auscultation. No chest discomfort. No wheezes, rhonchi, or rales. Abdomen: Normal bowel sounds. Nontender. No rebound tenderness. Genitalia: Deferred. Back: No midline tenderness. Diffuse pain in the low back and pelvis. Extremities: Normal range of motion. No injury. Skin: Intact. No rash. Warm. No erythema or pallor. Neurologic: No altered sensation. No weakness. Alert and oriented. Psychiatric: No suicidality. No anxiety or depression. No insomnia. Nursing notes and vitals signs are reviewed. Const: Vital Signs, click to edit/add: Vital Signs - 24 hr 02/16/24 13:04 Temperature 99 F Pulse Rate [Right Pulse Oximeter] 120 H Respiratory Rate 18 Blood Pressure [Ri ght Upper Arm] 115/76 Pulse Oximetry 97 Oxygen Delivery Me thod Room Air Course Vital Signs Vital signs: Initial Vital Signs Temperature 99 F 02/16/24 13:04 Temperature Source Temporal Artery Scan 02/16/24 13:04 Pulse Rate 120 H 02/16/24 13:04 Pulse Rhythm Regular 02/16/24 13:04 Pulse Strength 3+ Normal 02/16/24 13:04 Respiratory Rate 18 02/16/24 13:04 Blood Pressure 115/76 02/16/24 13:04 Blood Pressure Mean 89 02/16/24 13:04 Pulse Oximetry 97 02/16/24 13:04 Oxygen Delivery Method Room Air 02/16/24 13:04 Vital Signs Temperature 99 F 02/16/24 13:04 Pulse Rate 120 H 02/16/24 13:04 Respiratory Rate 18 02/16/24 13:04 Blood Pressure 115/76 02/16/24 13:04 Pulse Oximetry 97 02/16/24 13:04 Oxygen Delivery Method Room Air 02/16/24 13:04 Temperature 99 F 02/16/24 13:04 Pulse Rate 120 H 02/16/24 13:04 Respiratory Rate 18 02/16/24 13:04 Blood Pressure 115/76 02/16/24 13:04 Pulse Oximetry 97 02/16/24 13:04 Oxygen Delivery Method Room Air 02/16/24 13:04 Medications Administered Medications: Discontinued Medications Generic Name Dose Route Start Last Admin Trade Name Christi PRN Reason Stop Dose Admin Morphine Sulfate 5 mg 02/16/24 14:28 02/16/24 14:49 Morphine 10 Mg/Ml Inj IM 02/16/24 14:29 5 mg ONCE ONE Administration Medical Decision Making MDM Narrative Medical decision making narrative: This patient comes in reporting low back pain and pelvis pain from a fall that occurred about 3 days ago. She has history of degenerative disease and is scheduled to have a hip replacement in about 10 days. She also has chronic low back pain. She has been ambulating since this fall with a assistance of a cane. She states she normally walks with a cane. X-ray images of the pelvis and lumbar spine show no acute findings. She does have age indeterminate possibility of mild compression fracture in the lower back and has significant degenerative disease of her hips. The patient is taking oxycodone 3 times a day but reports taking it 4 times a day since this fall. I explained to her that she will need to follow-up with her primary physician that manages pain medicine. She did receive an intramuscular injection of morphine 5 mg today as a 1 time dose. I indicated that we would not repeat or get involved in management of ongoing pain. Imaging Data XR Pelvis: Radiologist's impression: No evident acute fracture or traumatic subluxation in the pelvis. Evaluation of the sacrum is limited by overlying bowel gas. Asymmetric severe right hip joint arthrosis. No acute soft tissue abnormalities. XR Lumbar Spine: Radiologist's impression: Query mild compression deformities versus Schmorl`s nodes in the L3 and L4 superior endplates. These are age indeterminate. Grade 1 anterolisthesis of L4 on L5. These findings could be further characterized by CT, if clinically indicated. Severe right hip joint arthrosis. Unremarkable soft tissues. Discharge Plan Discharge Clinical Impression: Lumbago, Chronic pain Patient Disposition: Home, Self-Care Condition: Stable Additional Instructions: Continue current plans. Increase activity as tolerated. Follow up with MD as scheduled or sooner as needed for management of ongoing pain medications. Prescriptions: No Action fluticasone propion-salmeterol 250-50 mcg/dose blister with device 1 ea INHALATION BID gabapentin 300 mg capsule 300 mg PO BID raloxifene 60 mg tablet 60 mg PO DAILY furosemide 20 mg tablet 20 mg PO QAM acetaminophen 500 mg tablet 1,000 mg PO TID PRN albuterol sulfate 90 mcg/actuation HFA aerosol inhaler 1 - 2 puff INHALATION Q4H PRN (Reason: wheezing) Centrum Silver Women 8 mg iron-400 mcg-50 mcg tablet 1 tab PO DAILY metoprolol succinate 50 mg Tablet Extended Release 24 Hr 50 mg PO DAILY Qty: 30 0RF diltiazem HCl [DILT-XR] 120 mg Capsule,Ext.Rel 24h Degradable 120 mg PO DAILY Qty: 30 0RF Eliquis 5 mg Tablet 5 mg PO BID Qty: 60 0RF nicotine 14 mg/24 hr Patch 24 Hour 1 patch transdermal Q24H Qty: 28 0RF prednisone 10 mg tablet 10 mg PO DIRECTED Qty: 22 0RF Rx Instructions: 3 tabs Qd x 3d, then 2 tabs po Qd x 3d, then 1 tab po Qd x7d, then stop Follow Up/Referrals: Melissa Ramos MD [Primary Care Provider] - Stand Alone Forms: [employer] Info Instructions
[2024-02-16] MEDS: MORPHINE 10 MG/ML inj 5 MG IM (14:49)
== END 2024-02-16 14:54 | disposition home or self-care (01) ==
PROVIDERS: Emergency Provider Emergency Medicine Emergency Medical Services; PCP Family Medicine
DX: M54.50 Low back pain, unspecified (principal); G89.29 Other chronic pain
CPT/HCPCS: 72100; 72170; 96372; 99284; J2270

== ENCOUNTER 2024-08-22 13:57 | Outpatient (CLI) | payer MEDICARE, MEDICAID, SELFPAY | END 2024-08-22 13:58 | disposition home or self-care (01) | LOC: US 13:59 | PROVIDERS: PCP Family Medicine; Visit Provider Orthopaedic Surgery Sports Medicine | DX: R20.2 Paresthesia of skin (principal); I70.201 Unspecified atherosclerosis of native arteries of extremities, right leg; Z47.89 Encounter for other orthopedic aftercare | CPT/HCPCS: 93926 ==

== ENCOUNTER 2025-01-07 15:50 | Inpatient (IN) | payer MEDICARE, MEDICAID, SELFPAY ==
--- OUTSIDE RECORDS SUMMARY | 2024-09-05 06:06 | XMS_ITS | Continuity of Care Document ---
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 Name Role Phone Will MD HORNER, Chip Unavailable Unavailabl e Allergies, Adverse Reactions, Alerts Substance Reaction Status Criticality PENICILLIN Active No Information Medications Medication Instructions Dosage Effective Dates (start - stop) Status Comments gabapentin 300 mg capsule take 1 capsule by oral route 2 times every day 300 MG - Active metoprolol succinate ER 50 mg tablet,extended release 24 hr take 1 tablet by oral route every day 50 MG - Active furosemide 20 mg tablet take 1 tablet by oral route every day 20 MG - Active Eliquis 5 mg tablet take 1 tablet by oral route 2 times every day 5 MG - Active oxycodone 5 mg tablet take 1 tablet by oral route every 12 hours as needed for chronic pain. MAX 2/day - No Longer Active slow taper, to fill 3/3, to start 3/6 Procedures Procedure Date OFFICE VISIT, EST TELEMEDICINE OFFICE/OUTPATIENT VISIT, EST OFFICE/OUTPATIENT VISIT, EST Drug test def 8-14 classes Drug Urine Toxology With Chromatography OFFICE VISIT, EST TELEMEDICINE OFFICE/OUTPATIENT VISIT, EST OFFICE VISIT, EST TELEMEDICINE OFFICE/OUTPATIENT VISIT, EST OFFICE VISIT, EST TELEMEDICINE OFFICE/OUTPATIENT VISIT, EST OFFICE/OUTPATIENT VISIT, EST OFFICE/OUTPATIENT VISIT, EST Drug test def 8-14 classes Drug Urine Toxology With Chromatography OFFICE/OUTPATIENT VISIT, EST OFFICE/OUTPATIENT VISIT, EST OFFICE/OUTPATIENT VISIT, EST OFFICE/OUTPATIENT VISIT, EST Drug Urine Toxology With Chromatography Drug test def 15-21 classes OFFICE/OUTPATIENT VISIT, EST OFFICE/OUTPATIENT VISIT, EST Drug test def 22+ classes Drug Urine Toxology With Chromatography OFFICE CONSULTATION PT-FOCUSED HLTH RISK ASSMT Advance Directives Directive Yes / No Effective Date File Name No Information Encounters Encounter Description Practice Location Reason(s) For Visit Diagnoses Date Provider Providers Copied on Encounter [facility], [address] [place], [place], [id number] , [place] tel:[phone] [facility] [place] No Information 5 Herve Saunders. [address] [place], [place], [id number], [place]. tel:[phone] OFFICE VISIT, EST TELEMEDICINE [facility], [address] [place], [place], [id number] , [place] tel:[phone] [facility] low back pain (chief complaint) Radiculopathy, lumbar regionLong term (current) use of opiate analgesicChron ic pain syndromePain in right hipOther exterminator helper termite (current) drug therapy 5 Shilpa Rubi. [address] [place], [place], [id number], [place]. tel:[phone] OFFICE/OUTPAT IENT VISIT, EST [facility], [address], [place], [id number] , [place] tel:[phone] [facility] [place] low back pain (chief complaint) Chronic pain syndromePain in right hipRadiculopat hy, lumbar regionLong term (current) use of opiate analgesicOther exterminator helper termite (current) drug therapy 5 Shilpa Rubi. [address] [place], [place], [id number], [place]. tel:[phone] Referring Provider: Chip Jerome, [address] [place] [address], [address]. tel:[phone] OFFICE/OUTPAT IENT VISIT, [facility], [address] [place] [address], [id number] , [place] tel:[phone] [facility] low back pain (chief complaint) Chronic pain syndromePain in right hipRadiculopat hy, lumbar regionLong term (current) use of opiate analgesicOther [facility]p ([facility] 5 Faheem Gomez. [address], [address], [place], [place], [id number], [place]. tel:[phone] Referring Provider: Chip Jerome, [address] [place] [address], [address]. tel:[phone] OFFICE VISIT, [facility], [address] [place] [address], [id number] , [place] tel:[phone] [facility] low back pain (chief complaint)r ight hip pain (chief complaint) Chronic pain syndromePain in right hipRadiculopat hy, lumbar regionLong term (current) use of opiate analgesicOther mcfp (current) drug therapy 4 Ibrahima Steffanie. [address], [place], [place], [id number], [place]. tel:[phone] OFFICE/OUTPAT IENT VISIT, [facility], [address] [place] [address], [id number] , [place] tel:[phone] [facility] right hip pain (chief complaint)l ow back pain (chief complaint) Chronic pain syndromePain in right hipRadiculopat hy, lumbar regionLong term (current) use of opiate analgesicOther exterminator helper termite (current) drug therapy 4 Rain Fleming. [address] [place] [address], [id number], [place]. tel:[phone] Referring Provider: Chip Jerome, [address] [place] [address], [address]. tel:[phone] OFFICE VISIT, [facility], [address] [place] [address], [id number] , [place] tel:[phone] [facility] right hip pain (chief complaint)l ow back pain (chief complaint) Chronic pain syndromePain in right hipRadiculopat hy, lumbar regionLong term (current) use of opiate analgesicOther exterminator helper termite (current) drug therapy 0 4 Leighann Recioe. [address], [address], [place], [place], [id number], [place]. tel:[phone] Referring Provider: Chip Jerome, [address] [place] [address], [address]. tel:[phone] OFFICE/OUTPAT IENT VISIT, [facility], [address] [place] [address], [id number] , [place] tel:[phone] [facility] right hip pain (chief complaint)L ow back pain (chief complaint) Chronic pain syndromePain in right hipRadiculopat hy, lumbar regionOther exterminator helper termite (current) drug therapyLong term (current) use of opiate analgesic Sep- 4 Santos Agudelo. [address] [place] [address], [id number], [place]. tel:[phone] Referring Provider: Chip Jerome, [address] [place] [address], [address]. tel:[phone] OFFICE VISIT, [facility], [address] [place] [address], [id number] , [place] tel:[phone] [facility] Widespread pain (chief complaint) Chronic pain syndromePain in right hipRadiculopat hy, lumbar regionOther exterminator helper termite (current) drug therapyLong term (current) use of opiate analgesic Aug- 4 Pedro Ramachandran. [address] [facility] [address], [place], [place], [id number], [place]. tel:[phone] Referring Provider: Chip Jerome, [address] [place] [address], [address]. tel:[phone] OFFICE/OUTPAT IENT VISIT, [facility], [address] [place] [address], [id number] , [place] tel:[phone] [facility] Widespread pain (chief complaint) Chronic pain syndromePain in right hipRadiculopat hy, lumbar regionOther mcfp (current) drug therapyLong term (current) use of opiate analgesic 4 Olivia [place], [address] [place], [address], [place]. tel:[phone] Referring Provider: Chip Jerome, [address] [place] [address], [address]. tel:[phone] OFFICE/OUTPAT IENT VISIT, [facility], [address] [place] [address], [id number] , [place] tel:[phone] [facility] low back pain (chief complaint) Chronic pain syndromePain in right hipRadiculopat hy, lumbar regionOther exterminator helper termite (current) drug therapyLong term (current) use of opiate analgesic 4 Leighann Marc. [address], [address], [place], [place], [id number], [place]. tel:[phone] Referring Provider: Chip Jerome, [address] [place] [address], [address]. tel:[phone] OFFICE/OUTPAT IENT VISIT, [facility], [address] [place] [address], [id number] , [place] tel:[phone] [facility] low back pain (chief complaint) Encounter for therapeutic drug level monitoringChro shaunna pain syndromePain in right hipRadiculopat hy, lumbar regionOther mcfp (current) drug therapyLong term (current) use of opiate analgesic 4 Olivia Marquis, [address] [place], [address], [place]. tel:[phone] Referring Provider: Chip Jerome, [address] [place] [address], [address]. tel:[phone] [facility], [address] [place] [address], [id number] , [place] tel:[phone] [facility] No Information Dec- 4 Baker [place], [address] [place], [place], [facility], [place]. tel:[phone] Referring Provider: Chip Jerome, [address] [place] [address], [address]. tel:[phone] OFFICE/OUTPAT IENT VISIT, [facility], [address] [place] [address], [id number] , [place] tel:[phone] [facility] low back pain (chief complaint) Chronic pain syndromePain in right hipRadiculopat hy, lumbar regionOther mcfp (current) drug therapyLong term (current) use of opiate analgesicEncou nter for therapeutic drug level monitoring 4 Baker Aron. [place], [address] [place], [place], [facility], [place]. tel:[phone] Referring Provider: Chip Jerome, [address] [place] [address], [address]. tel:[phone] OFFICE/OUTPAT IENT VISIT, [facility], [address] [place] [address], [id number] , [place] tel:[phone] [facility] low back pain (chief complaint) Chronic pain syndromePain in right hipRadiculopat hy, lumbar regionOther mcfp (current) drug therapyLong term (current) use of opiate analgesic Oct- 4 Baker Aron. [place], [address] [place], [place], [facility], [place]. tel:[phone] Referring Provider: Chip Jerome, [address] [place] [address], [address]. tel:[phone] OFFICE/OUTPAT IENT VISIT, [facility], [address] [place] [address], [id number] , [place] tel:[phone] [facility] low back pain (chief complaint) Chronic pain syndromePain in right hipRadiculopat hy, lumbar regionOther mcfp (current) drug therapy Apr-0 5 4 Leighann Marc. [address], [address], [place], [place], [id number], [place]. tel:[phone] Referring Provider: Chip Jerome, [address] [place] [address], [address]. tel:[phone] OFFICE/OUTPAT IENT VISIT, [facility], [address] [place] [address], [id number] , [place] [phone] [facility] low back pain (chief complaint) Chronic pain syndromePain in right hipRadiculopat hy, lumbar regionOther exterminator helper termite (current) drug therapyEncount er for therapeutic drug level monitoring Aug- 4 Olivia Sharp. [place], [address] [place] [address], [address], [place]. tel:[phone] Referring Provider: Chip Jerome, [address] [place] [address], [address]. tel:[phone] OFFICE/OUTPAT IENT VISIT, [facility], [address] [place] [address], [id number] , [place] [phone] [facility] low back pain (chief complaint) Radiculopathy, lumbar regionOther mcfp (current) drug therapyChronic pain syndromePain in right hip 3 Carinaekaterina Mooney. [address], [place], [place], [id number], [place]. tel:[phone] Referring Provider: Chip Jerome, [address] [place] [address], [address]. tel:[phone] OFFICE/OUTPAT IENT VISIT, [facility], [address] [place] [address], [id number] , [place] [phone] [facility] [place] low back pain (chief complaint) Other chronic painRadiculopa thy, lumbar regionOther intervertebral disc degeneration, lumbar regionOth specific arthropathies, NEC, oth siteOther mcfp (current) drug therapy 9 Bakercarlos enrique Sharp. [place], [address] [place], [address], [place]. tel:[phone] Referring Provider: Chip Jerome, [address] [place], [address]. tel:[phone] OFFICE CONSULTATION [facility], [address], [place], [id number] , [place] [phone] [facility] low back pain (chief complaint) Other chronic painRadiculopa thy, lumbar regionOther intervertebral disc degeneration, lumbar regionOth specific arthropathies, NEC, oth siteOther mcfp (current) drug therapyEncount er for therapeutic drug level monitoringLong term (current) use of opiate analgesic 9 Olivia SharpPriti [place], [address] [place], [address], [place]. tel:[phone] Referring Provider: Melissa Ramos [address], [address]. tel:[phone] Family History Family Member Type Diagnosis Age At Onset No Information Payers Payer name Insurance type Covered alliance party ID Authorleea jenny(s) Medicare [id number] Me Medical Assistance [id number] Social History Type Description Quantity Date Captured Comments Sex Female Smoking Status No Information Chief Complaint And Reason For Visit No Information Reason For Referral Reason For Referral No Information Plan Of Treatment Date Type Action Status Goal UDT. Due on due Goal ELECTRICAL SYSTEMS DRAFTER Paperwork. Due on due Goal AST (SGOT). Due on due Goal Order Annual PT. Due on due Goal Creatinine. Due on due Goal ALT (SGPT). Due on due Goal OARS. Due on due Goal PEST CONTROL WORKER HELPER Scanned. Due on due Goal Medication Recon ciliation. Due on due Goal Lipid panel. Due on due Goal PHQ-9. Due on du e Goal Unhealthy drug u se screening. Due on due Goal Height. Due on d ue Goal CT-Colonography. Due on due Goal Update Social Hi story. Due on due Goal FIT-DNA. Due on due Goal Tobacco Use. Due on due Goal Hepatitis C scre ening. Due on due Goal FIT. Due on due Goal Zoster vaccine ( 1st). Due on due Goal Review Allergy L ist. Due on due Goal Weight. Due on d ue Goal ALT (SGPT). Due on due Goal ELECTRICAL SYSTEMS DRAFTER Paperwork. Due on due Goal UDT. Due on due Goal AST (SGOT). Due on due Goal PEST CONTROL WORKER HELPER Scanned. Due on due Goal OARS. Due on due Goal Creatinine. Due on due Goal Order Annual PT. Due on due Goal Review Allergy L ist. Due on due Goal Zoster vaccine ( 1st). Due on due Goal Height. Due on d ue Goal Tobacco Use. Due on due Goal CT-Colonography. Due on due Goal Update Social Hi story. Due on due Goal Unhealthy drug u se screening. Due on due Goal FIT. Due on due Goal Hepatitis C scre ening. Due on due Goal Weight. Due on d ue Goal PHQ-9. Due on du e Goal Medication Recon ciliation. Due on due Goal FIT-DNA. Due on due Goal Lipid panel. Due on due Goal OARS. Due on due Goal Creatinine. Due on due Goal ALT (SGPT). Due on due Goal UDT. Due on due Goal PEST CONTROL WORKER HELPER Scanned. Due on due Goal ELECTRICAL SYSTEMS DRAFTER Paperwork. Due on due Goal AST (SGOT). Due on due Goal Order Annual PT. Due on due Goal Height. Due on d ue Goal Hepatitis C scre ening. Due on due Goal CT-Colonography. Due on due Goal Weight. Due on d ue Goal Lipid panel. Due on due Goal Unhealthy drug u se screening. Due on due Goal Medication Recon ciliation. Due on due Goal FIT-DNA. Due on due Goal Zoster vaccine ( 1st). Due on due Goal Tobacco Use. Due on due Goal FIT. Due on due Goal Update Social Hi story. Due on due Goal Review Allergy L ist. Due on due Goal PHQ-9. Due on du e Goal Creatinine. Due on due Goal Order Annual PT. Due on due Goal ALT (SGPT). Due on due Goal PEST CONTROL WORKER HELPER Scanned. Due on due Goal UDT. Due on due Goal AST (SGOT). Due on due Goal ELECTRICAL SYSTEMS DRAFTER Paperwork. Due on due Goal OARS. Due on due Goal CT-Colonography. Due on due Goal Tobacco Use. Due on due Goal Height. Due on d ue Goal Weight. Due on d ue Goal Update Social Hi story. Due on due Goal PHQ-9. Due on du e Goal Review Allergy L ist. Due on due Goal FIT-DNA. Due on due Goal Zoster vaccine ( 1st). Due on due Goal FIT. Due on due Goal Lipid panel. Due on due Goal Unhealthy drug u se screening. Due on due Goal Hepatitis C scre ening. Due on due Goal Medication Recon ciliation. Due on due Goal Order Annual PT. Due on due Goal UDT. Due on due Goal Creatinine. Due on due Goal AST (SGOT). Due on due Goal ALT (SGPT). Due on due Goal ELECTRICAL SYSTEMS DRAFTER Paperwork. Due on due Goal OARS. Due on due Goal PEST CONTROL WORKER HELPER Scanned. Due on due Goal Hepatitis C scre ening. Due on due Goal Update Social Hi story. Due on due Goal FIT. Due on due Goal Lipid panel. Due on due Goal CT-Colonography. Due on due Goal Height. Due on d ue Goal Unhealthy drug u se screening. Due on due Goal Medication Recon ciliation. Due on due Goal Review Allergy L ist. Due on due Goal Tobacco Use. Due on due Goal FIT-DNA. Due on due Goal Weight. Due on d ue Goal Zoster vaccine ( 1st). Due on due Goal PHQ-9. Due on du e Goal OARS. Due on due Goal UDT. Due on due Goal PEST CONTROL WORKER HELPER Scanned. Due on due Goal AST (SGOT). Due on due Goal Creatinine. Due on due Goal ALT (SGPT). Due on due Goal Order Annual PT. Due on due Goal ELECTRICAL SYSTEMS DRAFTER Paperwork. Due on due Goal Zoster vaccine ( ). Due on due Goal Hepatitis C scre ening. Due on due Goal PHQ-9. Due on du e Goal Unhealthy drug u se screening. Due on due Goal Lipid panel. Due on due Goal FIT. Due on due Goal FIT-DNA. Due on due Goal Tobacco Use. Due on due Goal CT-Colonography. Due on due Goal Height. Due on d ue Goal Update Social Hi story. Due on due Goal Medication Recon ciliation. Due on due Goal Review Allergy L ist. Due on due Goal Weight. Due on d ue Goal Order Annual PT. Due on due Goal Creatinine. Due on due Goal UDT. Due on due Goal ALT (SGPT). Due on due Goal PEST CONTROL WORKER HELPER Scanned. Due on due Goal OARS. Due on due Goal ELECTRICAL SYSTEMS DRAFTER Paperwork. Due on due Goal AST (SGOT). Due on due Goal CT-Colonography. Due on due Goal Tobacco Use. Due on due Goal Weight. Due on d ue Goal FIT-DNA. Due on due Goal Zoster vaccine ( 1st). Due on due Goal Medication Recon ciliation. Due on due Goal Update Social Hi story. Due on due Goal Unhealthy drug u se screening. Due on due Goal PHQ-9. Due on du e Goal Hepatitis C scre ening. Due on due Goal Review Allergy L ist. Due on due Goal Lipid panel. Due on due Goal Height. Due on d ue Goal FIT. Due on due Goal PEST CONTROL WORKER HELPER Scanned. Due on due Goal ALT (SGPT). Due on due Goal OARS. Due on due Goal ELECTRICAL SYSTEMS DRAFTER Paperwork. Due on due Goal UDT. Due on due Goal Order Annual PT. Due on due Goal AST (SGOT). Due on due Goal Creatinine. Due on due Goal Weight. Due on d ue Goal CT-Colonography. Due on due Goal Review Allergy L ist. Due on due Goal Hepatitis C scre ening. Due on due Goal Update Social Hi story. Due on due Goal Tobacco Use. Due on due Goal PHQ-9. Due on du e Goal Unhealthy drug u se screening. Due on due Goal Zoster vaccine ( 1st). Due on due Goal FIT-DNA. Due on due Goal Height. Due on d ue Goal Lipid panel. Due on due Goal Medication Recon ciliation. Due on due Goal FIT. Due on due Goal UDT. Due on due Goal ALT (SGPT). Due on due Goal ELECTRICAL SYSTEMS DRAFTER Paperwork. Due on due Goal Creatinine. Due on due Goal PEST CONTROL WORKER HELPER Scanned. Due on due Goal OARS. Due on due Goal AST (SGOT). Due on due Goal Order Annual PT. Due on due Goal PHQ-9. Due on du e Goal Weight. Due on d ue Goal Tobacco Use. Due on due Goal CT-Colonography. Due on due Goal Height. Due on d ue Goal Unhealthy drug u se screening. Due on due Goal Hepatitis C scre ening. Due on due Goal FIT. Due on due Goal Medication Recon ciliation. Due on due Goal Zoster vaccine ( 1st). Due on due Goal Update Social Hi story. Due on due Goal Review Allergy L ist. Due on due Goal FIT-DNA. Due on due Goal Lipid panel. Due on due Goal ELECTRICAL SYSTEMS DRAFTER Paperwork. Due on due Goal AST (SGOT). Due on due Goal PEST CONTROL WORKER HELPER Scanned. Due on due Goal OARS. Due on due Goal Creatinine. Due on due Goal ALT (SGPT). Due on due Goal UDT. Due on due Goal Order Annual PT. Due on due Goal PHQ-9. Due on du e Goal Tobacco Use. Due on due Goal CT-Colonography. Due on due Goal Review Allergy L ist. Due on due Goal Hepatitis C scre ening. Due on due Goal FIT. Due on due Goal Unhealthy drug u se screening. Due on due Goal Weight. Due on d ue Goal Medication Recon ciliation. Due on due Goal Zoster vaccine ( 1st). Due on due Goal Height. Due on d ue Goal Lipid panel. Due on due Goal Update Social Hi story. Due on due Goal FIT-DNA. Due on due Goal AST (SGOT). Due on due Goal PEST CONTROL WORKER HELPER Scanned. Due on due Goal ALT (SGPT). Due on due Goal OARS. Due on due Goal Order Annual PT. Due on due Goal ELECTRICAL SYSTEMS DRAFTER Paperwork. Due on due Goal UDT. Due on due Goal Creatinine. Due on due Goal CT-Colonography. Due on due Goal Unhealthy drug u se screening. Due on due Goal Update Social Hi story. Due on due Goal PHQ-9. Due on du e Goal Tobacco Use. Due on due Goal Review Allergy L ist. Due on due Goal FIT-DNA. Due on due Goal FIT. Due on due Goal Zoster vaccine ( 1st). Due on due Goal Weight. Due on d ue Goal HPV. Due on due Goal Hepatitis C scre ening. Due on due Goal Lipid panel. Due on due Goal Medication Recon ciliation. Due on due Goal Height. Due on d ue Goal Tobacco cessation counseling completed Goal AST (SGOT). Due on due Goal Order Annual PT. Due on due Goal Creatinine. Due on due Goal OARS. Due on due Goal ELECTRICAL SYSTEMS DRAFTER Paperwork. Due on due Goal PEST CONTROL WORKER HELPER Scanned. Due on due Goal ALT (SGPT). Due on due Goal UDT. Due on due Goal CT-Colonography. Due on due Goal Height. Due on d ue Goal Medication Recon ciliation. Due on due Goal Zoster vaccine ( 1st). Due on due Goal Lipid panel. Due on due Goal FIT. Due on due Goal Unhealthy drug u se screening. Due on due Goal Update Social Hi story. Due on due Goal Review Allergy L ist. Due on due Goal HPV. Due on due Goal Hepatitis C scre ening. Due on due Goal PHQ-9. Due on du e Goal Tobacco Use. Due on due Goal Weight. Due on d ue Goal FIT-DNA. Due on due Goal PEST CONTROL WORKER HELPER Scanned. Due on due Goal ALT (SGPT). Due on due Goal UDT. Due on due Goal Creatinine. Due on due Goal ELECTRICAL SYSTEMS DRAFTER Paperwork. Due on due Goal OARS. Due on due Goal AST (SGOT). Due on due Goal Order Annual PT. Due on due Goal PHQ-9. Due on du e Goal FIT. Due on due Goal Tobacco Use. Due on due Goal HPV. Due on due Goal Update Social Hi story. Due on due Goal Review Allergy L ist. Due on due Goal Height. Due on d ue Goal Lipid panel. Due on due Goal CT-Colonography. Due on due Goal Unhealthy drug u se screening. Due on due Goal Weight. Due on d ue Goal Hepatitis C scre ening. Due on due Goal Medication Recon ciliation. Due on due Goal FIT-DNA. Due on due Goal Zoster vaccine ( 1st). Due on due Goal PEST CONTROL WORKER HELPER Scanned. Due on due Goal Order Annual PT. Due on due Goal ALT (SGPT). Due on due Goal Creatinine. Due on due Goal UDT. Due on due Goal AST (SGOT). Due on due Goal OARS. Due on due Goal ELECTRICAL SYSTEMS DRAFTER Paperwork. Due on due Goal Medication Recon ciliation. Due on due Goal Lipid panel. Due on due Goal CT-Colonography. Due on due Goal Height. Due on d ue Goal Unhealthy drug u se screening. Due on due Goal Zoster vaccine ( 1st). Due on due Goal PHQ-9. Due on du e Goal Weight. Due on d ue Goal FIT. Due on due Goal Hepatitis C scre ening. Due on due Goal Tobacco Use. Due on due Goal Review Allergy L ist. Due on due Goal FIT-DNA. Due on due Goal HPV. Due on due Goal Update Social Hi story. Due on due Goal Order Annual PT. Due on due Goal AST (SGOT). Due on due Goal UDT. Due on due Goal ALT (SGPT). Due on due Goal Creatinine. Due on due Goal ELECTRICAL SYSTEMS DRAFTER Paperwork. Due on due Goal PEST CONTROL WORKER HELPER Scanned. Due on due Goal OARS. Due on due Goal Medication Recon ciliation. Due on due Goal Unhealthy drug u se screening. Due on due Goal Height. Due on d ue Goal Update Social Hi story. Due on due Goal PHQ-9. Due on du e Goal Review Allergy L ist. Due on due Goal CT-Colonography. Due on due Goal HPV. Due on due Goal Zoster vaccine ( 1st). Due on due Goal Weight. Due on d ue Goal Tobacco Use. Due on due Goal FIT-DNA. Due on due Goal FIT. Due on due Goal Lipid panel. Due on due Goal Hepatitis C scre ening. Due on due Goal ELECTRICAL SYSTEMS DRAFTER Paperwork. Due on due Goal UDT. Due on due Goal ALT (SGPT). Due on due Goal PEST CONTROL WORKER HELPER Scanned. Due on due Goal OARS. Due on due Goal Creatinine. Due on due Goal Order Annual PT. Due on due Goal AST (SGOT). Due on due Goal Zoster vaccine ( 1st). Due on due Goal Review Allergy L ist. Due on due Goal CT-Colonography. Due on due Goal Tobacco Use. Due on due Goal Weight. Due on d ue Goal Unhealthy drug u se screening. Due on due Goal Hepatitis C scre ening. Due on due Goal Update Social Hi story. Due on due Goal HPV. Due on due Goal Lipid panel. Due on 023 due Goal Height. Due on d ue Goal PHQ-9. Due on du e Goal FIT-DNA. Due on due Goal Medication Recon ciliation. Due on due Goal FIT. Due on due Future Order: Radiology Order MR I Lumbar Spine W/O Dye ([id number]), Ordered on: Ordered Future Order: Radiology Order X- Ray Exam Of Hip Left (XHIPL), Ordered on: Ordered Future Order: Radiology Order X- Ray Exam Of Hip Right (XHIPR), Ordered on: Ordered Future Order: Lab Order Drug Olivia t Def 22+ Classes ([id number]), Ordered on: Ordered Future Order: Lab Order COMPLIAN CE DRUG ANALYSIS, URINE, WITH MED REPORT ([id number]), Ordered on: Ordered History Of Present Illness Encounter Date Complaint History Of Prese nt Illness low back pain Severity level i s 8. Duration: chronic. The problem is worsening. It occurs persistently. Location of pain is lower back, legs and right hip. Symptoms are aggravated by daily activities and overuse. Symptoms are relieved by pain meds/drugs and rest. 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 Pain 02/09. - Chronic RIGHT hip pain. - S/p right hip replacement on 06/03/24 and continues to heal appropriately however notes some increased pain. - She had recently completed US imaging and will follow up with her surgeon again sometime soon to discuss results. - Chronic low back pain. - She is aware of the SCS & IT pain pump trial and may pursue in the future. - Currently prescribed Oxycodone 5mg TID. - Her ELECTRICAL SYSTEMS DRAFTER had been terminated due to presenting with multiple medications in her Oxycodone bottle.- She is aware that she will be tapered off of her medications. - Expresses her concerns and frustrations with her current situation. - She is aware of the suboxone induction and may pursue in the future. - Denies the need to start on Suboxone therapy at this time. - Denies any side effects with current regimen. low back pain Severity level i s 7. Duration: chronic. The problem is worsening. It occurs persistently. Location of pain is lower back and right hip. Symptoms are aggravated by bending, standing, walking and reaching overhead. Symptoms are relieved by pain meds/drugs, rest, HEP and sitting. 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 Pain 01/09. - Chronic R hip pain. - S/p right hip replacement on 06/03/24 and continues to heal appropriately. Continues with Outpatient PT.- Chronic low back pain. - She is aware of the SCS trial and may pursue in the future. - Also aware of the intracept and will consider pending physician approval. - Currently prescribed Oxycodone 5mg QID. Presents with a surplus today. - Her ELECTRICAL SYSTEMS DRAFTER had been terminated due to presenting with multiple medications in her Oxycodone bottle at the last OV. - She is aware that she will be tapered off of her medications. - Expresses her concerns and frustrations with her current situation. - Denies any side effects with current regimen. low back pain Severity level i s 8. Duration: chronic. The problem is worsening. Location of pain is lower back, post thighs and left hip. The client describes the pain as an ache and sharp. Symptoms are aggravated by bending, standing, walking, reaching overhead, housework, social activities and self care. Symptoms are relieved by physical therapy and medications. Comments: This i s my first evaluation of the patient who was previously followed by Aron Baker PA-C, and most recently seen by my colleague Steffanie Alexandra PA-C. Previous records, clinic notes, and imaging reviewed.Cornelia is a 64 y/o female who presents to the clinic for a follow up and medication management in the setting of chronic right hip and low back pain. Pain has been worse since [facility]. She is s/p right hip replacement on 06/03/24 with benefit and was recently discharged from inpatient PT on 06/21/24. Continues with outpatient PT with benefit. Today she notes that the pain is now worse on her left hip. States that her surgeon prescribed her tramadol to help with post-surgical pain, but she has not been able to pick anything up d/t issues with her pharmacy starting 1-2 weeks ago. C/o ongoing low back pain. Endorses occasional shooting pains down her BLE. Pain is worse with activity. States she has previously followed with a spine surgeon, but has d/c as she is not interested in surgical intervention at this. She is not interested in other procedural options either at this time while she recovers from her right hip replacement.Current medication provides 50% pain relief. Presents with a small surplus of her oxycodone. Today she presents with multiple medications in the bottle that she picked up on 06/06/24. States she does not know of how the other medications got there. Was inpatient for a while after her replacement and received pain medications there. No SE noted. No other concerns today. right hip pain Duration chronic . The problem is worsening. Location of pain is right. low back pain Severity level i s 8. Duration: chronic. The problem is worsening. Comments: Cornelia is a 64 y/o woman presenting via [facility] for the management of chronic right hip and low back pain. This is my first visit with the patient who has previously been seen by several of my colleagues. She is scheduled for a right hip replacement on 06/03/2024 which she is nervous about. Continues to endorse her hip pain as being worse than her back pain - continues to healing/improve from 02/2024 fracture.Current medication provides 25% pain relief without SE present. Today she presents with a small surplus of her oxycodone. No other concerns today. right hip pain Severity level i s severe. Duration chronic. The problem is worsening. It occurs constantly. Location of pain is right. The client describes the pain as an ache and burning. Symptom is aggravated by standing and walking. Relieving factors include rest. Pertinent negatives include fever. low back pain Severity level i s 8. Duration: chronic. The problem is worsening. It occurs persistently. The client describes the pain as an ache and sharp. Symptoms are aggravated by bending, standing and walking. Symptoms are relieved by lying down and sitting. Comments: Cornelia is a 64 y/o woman presenting in clinic today for the management of chronic right hip and low back pain. Her pain has been worse. Her pain score today is 8/10. Hip replacement at [facility] has been rescheduled to 06/03/24. Her pain has been radiating down BL LE making it difficult to walk and complete daily tasks. She is unsure how soon she will be able to address her broken back after her hip replacement. Current medication provides 40% pain relief without SE present. Today she presents roughly 3 days short. Violation noted. No other concerns today. low back pain Severity level i s 8. Duration: chronic. The problem is improving. right hip pain Severity level i s severe. Duration chronic. The problem is worsening. Location of pain is right. Pertinent negatives include fever. Comments: Cornelia is a 64 y/o woman presenting via [facility] today for the management of chronic right hip and low back pain. Her pain has been worse. Her pain score today is 8/10. Hip replacement at [facility] has been rescheduled to 06/03/24. Although her back is getting better her hip is getting worse. Her pain has been radiating down BL LE making it difficult to walk. She can still perform daily activities such as going to the store and can lift light weight.Speculates she had an MRI of her hip done in January or December. Comments: Maryana leach broke her back on 02/13/24. Although her back is getting better her hip is getting worse. Her pain has been radiating down BL LE making it difficult to walk. She can still perform daily activities such as going to the store and can lift light weight.Current medication provides 40% pain relief without SE present. Today she presents on track. No other concerns today. right hip pain Duration chronic . The problem is worsening. It occurs constantly. Location of pain is right. There is radiation of pain to the right thigh and lower leg and foot. The client describes the pain as sharp. Symptom is aggravated by active movement, climbing stairs, descending stairs, prolonged standing and housework. Relieving factors include ice, rest, stretching, heat and medication. Comments: -Jaiden shankar arrives 20 minutes late today to her visit was just scheduled this morning. Was provided with a 2 week RX last month due to being short 2-3 days worth of medication following a fall.-Has a right hip replacement scheduled for 03/08/[address] Early at [facility]. Plans to go to rehab after, unsure how long.-Has follow up with [facility] on Monday for her increased low back pain and right radicular symptoms/weakness. Indicates she also needs spine surgery.-On track with her medication today, which helps to reduce pain & improve function. -No medication SE noted.-No other concerns today. Low back pain Comments: Cornelia presents via [facility] today for a virtual follow-up and medication management in the setting of low back pain, including in her right hip, groin, and leg. Of note, the patient was routinely seen by my former colleague Nakul Baker PA-C and will transition her care to Tari Lawton CNP at the [facility] in the coming months.She notes that she is scheduled to undergo a hip replacement in the near future with Dr. Eastman at [facility]. Although, her pain has been worse over the past month after falling and hitting her tailbone on 02/13/2024. She presented to the ER 3-days later where XRs were taken and she was discharged from the ED. She was not told the results or informed that she had a fracture of any kind.The pain did not subside so she presented to the orthopedic urgent care who ordered and scheduled an MRI for 03/07 with a follow-up on 03/11. Notes that the pain radiates into her right leg.Reports current medication regimen provides 50% pain relief, allowing for increased functionality. Denies side effects from current medication regimen. No other concerns today. Widespread pain Duration: rayrayi c. Widespread pain Severity level i s 6. Duration: chronic. Location of the pain is lower back, right hip, groin and BL legs front and back. The client describes it as sharp and achy. It occurs persistently. The problem is worsening. Symptom is aggravated by bending, walking upstairs, walking downstairs, sitting, standing and walking. Relieving factors include rest, cold and Rx Meds. Pertinent negatives include diarrhea, fatigue, fever and incontinence (urinary). Comments: Cornelia presents in clinic for follow up regarding low back pain, including in her right hip, groin, and leg. Pain has been worse this month, most bothersome is her right groin and hip, which causes pain and weakness radiating down her RLE and up through her lower back (R>L). Secondary pain is located in her low back. Denies any new symptoms or concerns since last visit.Patient plans to undergo a right hip replacement with Dr. Patel [facility] in February 2024. She is hopeful this will provide some relief to her lower back pain.She has been finding minimal relief with her oxycodone 10mg, though since her pain continues to worsen, it has gotten less effective. Her exterminator helper termite goal is still to complete surgery and taper off her medications once she has fully recovered. No other concerns today. Comments: Cornelia is a 64 y/o female here for follow up regarding low back pain, including in her right hip, groin, and leg. Pain has been worse this month, most bothersome is her right groin and hip, which causes pain and weakness radiating down her RLE and up through her lower back (R>L). Secondary pain is located in her low back. Denies any new symptoms or concerns since last visit.Patient plans to undergo a right hip replacement with Dr. Patel [facility] in February 2024. She is hopeful this will provide some relief to her lower back pain.She has been finding moderate relief with her oxycodone 10mg, though since her pain continues to worsen, it has gotten less effective. Presents 1 tab short with medication today as she only had 1 tab today. Per primary provider, she will need to return in 2 weeks due to being short again today. Her exterminator helper termite goal is still to complete surgery and taper off her medications once she has fully recovered. No other concerns today. low back pain Severity level i s 7. Duration: chronic. The problem is worsening. It occurs persistently. The client describes the pain as sharp. Symptoms are aggravated by all movements. Symptoms are relieved by ice, pain meds/drugs and rest. low back pain Severity level i s 10. Duration: chronic. The problem is worsening. It occurs persistently. Location of pain is lower back, legs and right hip. The client describes the pain as an ache and sharp. Symptoms are aggravated by bending, lifting, standing, walking, prolonged positioning, movement and housework. Symptoms are relieved by heat, ice, pain meds/drugs and rest. Comments: Cornelia is a 63 y/o female here for follow up regarding low back pain, including in her right hip, groin, and leg. Pain has been worse this month, most bothersome is her right groin and hip, which causes pain and weakness radiating down her RLE and up through her lower back (R>L).Patient plans to undergo a right hip replacement with Dr. Eastman of [facility] in January. She will likely complete her surgical pre-op at the end of December. She is hopeful this will provide some relief to her lower back pain as well and allow her to be off pain medications. She has been finding moderate relief with her Oxycodone 10mg, though since her pain continues to worsen, it has gotten less effective. Presents ~2 tabs short on her medication today and admits to taking an extra tab on a few days this month. Informed that she would need to make up these tabs and return to clinic in 2 weeks. ELECTRICAL SYSTEMS DRAFTER violation issued. Her exterminator helper termite goal is still to complete potential surgery and taper off her medications. She has not yet picked up medical cannabis. No other concerns today. low back pain Severity level i s 8. Duration: chronic. The problem is worsening. It occurs persistently. Location of pain is lower back, gluteal area, legs, right hip and right knee. The client describes the pain as an ache and sharp. Symptoms are aggravated by ascending stairs, bending, descending stairs, lifting, standing, twisting, walking, prolonged positioning, housework and movement. Symptoms are relieved by heat, ice, pain meds/drugs, physical therapy, stretching and rest. Comments: Cornelia is a 63 y/o female here for follow up regarding low back pain, including in her right hip, groin, and leg. Pain has been worse this month, most bothersome is her right hip, which causes pain and weakness radiating down her RLE and up through her lower back. Patient is not accompanied today.Patient consulted with Dr. Eastman of [facility] and is hopeful to undergo a right hip replacement with him as her pain continues to worsen. She has been finding better relief with her Oxycodone 10mg, though sometimes struggles when it wears off between doses. Presents without medication today. No ELECTRICAL SYSTEMS DRAFTER violation issued as she is following up past her due date d/t loss of insurance. Her exterminator helper termite goal is still to complete potential surgery and taper off her medications. No other concerns today. low back pain Severity level i s 8. Duration: chronic. The problem is worsening. It occurs persistently. Location of pain is lower back, gluteal area, right hip and right leg. Symptoms are aggravated by ascending stairs, bending, descending stairs, lifting, sitting, standing, walking and prolonged positioning. Symptoms are relieved by rest and chiropractic. Comments: Cornelia is a 63 y/o female here for follow up regarding low back pain, including in her right hip, groin, and leg. Pain has been worse this month, most bothersome is pain and weakness radiating down her RLE. Patient is not accompanied today.Reports that her recent R hip XR displayed severe arthritis and she may need a hip replacement. Has found no relief with steroid burst. A hip injection was discussed, but she is not interested in pursuing as they haven't been helpful before. Has not scheduled a follow up with ortho yet as she has been out of town. Requests a referral today.[place] was not beneficial to her pain and expresses interest in another pain medication today. Also expresses concern with the amount of Tylenol she's taking. Agreeable to trial Oxycodone 10mg and begin chronic opioid therapy as she was previously taking medication sparingly. Has not trialed medical cannabis yet. No other concerns today. Comments: This i s my first evaluation of the patient, previously followed by Aron Baker PA-C and Jesica Montana DNP.Cornelia is a 63 y/o female here for follow up regarding low back pain, including in her right hip, groin, and leg. Pain has been consistent, most bothersome to pain and weakness radiating down her RLE. Patient is accompanied by her daughter, Lashanda, who participates in today's discussion.Reports that her recent R hip XR displayed severe arthritis and may need a hip replacement. A hip injection was recommended, but she is not interested in pursuing as they haven't been helpful before. Has not scheduled a follow up with ortho yet.At [facility], a Medrol dose pack and oxycodone 5mg #10 were prescribed. She did not start the dose pack as she doesn't eat meals regularly. Would be willing to try a prednisone burst instead. Oxycodone was not beneficial to her pain and expresses interest in another pain medication today. She was certified for medical cannabis last visit, but has not yet been to the dispensary. No other concerns today. low back pain Severity level i s 6. Duration: chronic. The problem is worsening. It occurs persistently. The client describes the pain as an ache and sharp. Symptoms are aggravated by lifting, standing, walking, bending backward, housework, movement, prolonged positions and stairs. Symptoms are relieved by heat, ice, massage, rest and chiropractic. low back pain Severity level i s 8. Duration: chronic. The problem is fluctuating. It occurs persistently. Location of pain is lower back, legs and bilateral hips. The client describes the pain as an ache, burning and numbness. Symptoms are aggravated by all movement. Symptoms are relieved by pain meds/drugs and rest. Comments: Cornelia is a 63 y/o female here for initial follow up regarding low back pain, including in her right hip, groin, and leg. Pain has been fluctuating, most bothersome is pain and weakness radiating down her RLE. Patient is accompanied by her daughter, Lashanda, who participates in today's discussion. Presents to review lumbar imaging. States she has seen three surgeons in the past and will plan to consult with the most recent one about surgical options for her back. Notes she is a little fearful of surgery at this time, but is understanding of the severity of her findings.Of note, she expresses frustration that she completed a lumbar MRI instead of imaging on her hip like she wanted. Also is confused why x-rays were ordered instead of MRIs. Cornelia is interested in pain management while potentially pursuing surgery. Discussed her case with Jesica Bills DNP and agreed to provide patient with a Medrolpak and #10 tabs Oxycodone 5mg to bridge her through the weekend. Also requests medical cannabis recertification. No other concerns today. Comments: Cornelia is a 63 y/o female here for initial consult regarding low back pain, including in her right hip, groin, and leg, referred by Dr. Ramos at [facility]. Pain began gradually three years ago. Patient was previously seen at [facility] in 2018. Pain averages 7/10 and is described as constant and sharp. Notes pain is aggravated by increased activity and she has experienced increased depression d/t inability to participate in daily activities. Patient is accompanied by her daughter, Lashanda, who participates in today's discussion. She has tried a L5-S1 IESI by Dr. Alvarez at [facility] in December 2017 with no significant relief. She had cortisone injections in her right hip approximately 6 months ago with no benefit. Her most recent lumbar MRI was done in 2016. States she is planning on starting pool therapy at a senior center in [place]. The patient is currently managed on Tylenol and Gabapentin with limited relief. She was in the ED in Summer 2022 and was given oxycodone, which provided significant relief and contributed to increased energy. Cornelia is interested in pain management through [facility]. No other concerns today. low back pain Onset: gradual w ithout injury. Severity level is 7. Duration: chronic. It occurs persistently. Location of pain is lower back and right hip. The client describes the pain as sharp. Symptoms are aggravated by bending, daily activities, lifting, standing, twisting, walking, changing positions and movement. Symptoms are relieved by heat, ice, lying down, massage, pain meds/drugs, physical therapy, rest, sitting and chiropractic. low back pain (comments) Cornelia is here today for a followup after initial consult for chronic low back pain. Pain today is worse. Expresses ongoing interest in medical cannabis today. She is excited to begin using medical cannabis products as she feels safer taking it than the illicit cannabis. Additional questions regarding certification process were addressed during today's appointment. Patient is not accompanied today and has no further questions or other concerns. low back pain Severity level i s 6. Duration: chronic. The problem is worsening. It occurs persistently. Location of pain is lower back. Pain is radiated to the left thigh and right thigh.The patient describes the pain as an ache. Symptoms are aggravated by ascending stairs, daily activities, descending stairs, lifting, standing, walking and prolonged positioning. Symptoms are relieved by lying down and pain meds/drugs. low back pain Onset: gradual w ithout injury. Severity level is 8. Duration: chronic. It occurs persistently. Location of pain is lower back. Pain is radiated to the left thigh and right thigh.The patient describes the pain as an ache. Symptoms are aggravated by bending, changing positions, daily activities, lifting, running, standing, twisting and walking. Symptoms are relieved by lying down, rest and chiropractic. low back pain (comments) Cornelia is here for an initial consult for low back and BLE pain, referred by her PCP Dr. Ramos. Her pain began 3 years ago gradually without inciting event or injury. Currently following with [facility]as [facility] who has recommended lumbar surgery. Currently taking vitamin D and using bone stimulator prior in preparation.Underwent PT at in 2018 with benefit, however insurance will no longer cover. Tried epidural injections at [facility] with variable relief. Reports previous imaging at [facility]- report available today for provider review. Currently taking Ibuprofen 600mg once daily. Previously managed on Flexeril, but reports issues with liver function and has since discontinued. She is interested in medical cannabis as recreational use has been helpful.Cornelia is interested in medical cannabis and other recommended therapies and would like [facility] to assume management of pain care. Functional Status Date Functional Assessmen t No Information Instructions Date Instruction Additional Infor mation No Information Assessments Type Assessment Date No Information Patient Care Teams Name Effective Dates (start - stop) Status Members No Information
--- OUTSIDE RECORDS SUMMARY | 2024-09-05 06:06 | XMS_ITS | Continuity of Care Document ---
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 Name Role Phone Will MD HORNER, Chip Unavailable Unavailabl e Allergies, Adverse Reactions, Alerts Substance Reaction Status Criticality PENICILLIN Active No Information Medications Medication Instructions Dosage Effective Dates (start - stop) Status Comments gabapentin 300 mg capsule take 1 capsule by oral route 2 times every day 300 MG - Active furosemide 20 mg tablet take 1 tablet by oral route every day 20 MG - Active metoprolol succinate ER 50 mg tablet,extended release 24 hr take 1 tablet by oral route every day 50 MG - Active Eliquis 5 mg tablet [...] Diagnoses Date Provider Providers Copied on Encounter [facility], [address], [place], [id number] , [place] tel:[phone] [facility] No Information 5 Herve Saunders. [address] [place], [place], [id number], [place]. tel:[phone] OFFICE VISIT, EST TELEMEDICINE [facility], [address], [place], [id number] , [place] tel:[phone] [facility] low back pain (chief complaint) Radiculopathy, lumbar regionLong term (current) use of opiate analgesicChron ic pain syndromePain in right hipOther terminal block assembler (current) drug therapy 5 Shilpa Rubi. [address], [place], [id number], [place]. tel:[phone] OFFICE/OUTPAT IENT VISIT, EST [facility], [address], [place], [id number] , [place] tel:[phone] [facility] [place] low back pain (chief complaint) Chronic pain syndromePain in right hipRadiculopat hy, lumbar regionLong term (current) use of opiate analgesicOther terminal block assembler (current) drug therapy 5 Shilpa Rubi. [address], [place], [id number], [place]. tel:[phone] Referring Provider: Chip Jerome, [address] [place] [address], [address]. tel:[phone] OFFICE/OUTPAT IENT VISIT, [facility], [address] [place] [address], [id number] , [place] tel:[phone] [facility] low back pain (chief complaint) Chronic pain syndromePain in right hipRadiculopat hy, lumbar regionLong term (current) use of opiate analgesicOther intermediate (current) [facility] 5 Faheem Gomez. [address], [address], [place], [place], [id number], [place]. tel:[phone] Referring Provider: Chip Jerome, [address] [place] [address], [address]. tel:[phone] OFFICE VISIT, [facility], [address] [place] [address], [id number] , [place] tel:[phone] [facility] low back pain (chief complaint)r ight hip pain (chief complaint) Chronic pain syndromePain in right hipRadiculopat hy, lumbar regionLong term (current) use of opiate analgesicOther intermediate (current) drug therapy 4 Ibrahima Steffanie. [address], [place], [place], [id number], [place]. tel:[phone] OFFICE/OUTPAT IENT VISIT, [facility], [address] [place] [address], [id number] , [place] tel:[phone] [facility] right hip pain (chief complaint)l ow back pain (chief complaint) Chronic pain syndromePain in right hipRadiculopat hy, lumbar regionLong term (current) use of opiate analgesicOther terminal block assembler (current) drug therapy 4 Rain Fleming. [address] [place] [address], [id number], [place]. tel:[phone] Referring Provider: Chip Jerome, [address] [place] [address], [address]. tel:[phone] OFFICE VISIT, [facility], [address] [place] [address], [id number] , [place] tel:[phone] [facility] right hip pain (chief complaint)l ow back pain (chief complaint) Chronic pain syndromePain in right hipRadiculopat hy, lumbar regionLong term (current) use of opiate analgesicOther terminal block assembler (current) drug therapy 0 4 Leighann Recioe. [address], [place], [place], [id number], [place]. tel:[phone] Referring Provider: Chip Jerome, [address] [place] [address], [address]. tel:[phone] OFFICE/OUTPAT IENT VISIT, [facility], [address] [place] [address], [id number] , [place] tel:[phone] [facility] right hip pain (chief complaint)L ow back pain (chief complaint) Chronic pain syndromePain in right hipRadiculopat hy, lumbar regionOther terminal block assembler (current) drug therapyLong term (current) use of opiate analgesic Sep- 4 Santos Agudelo. [address] [place] [address], [id number], [place]. tel:[phone] Referring Provider: Chip Jerome, [address] [place] [address], [id number]. tel:[phone] OFFICE VISIT, [facility], [address] [place] [address], [id number] , [place] tel:[phone] [facility] Widespread pain (chief complaint) Chronic pain syndromePain in right hipRadiculopat hy, lumbar regionOther terminal block assembler (current) drug therapyLong term (current) use of opiate analgesic Aug- 4 Pedro Ramachandran. [address], [place], [place], [id number], [place]. tel:[phone] Referring Provider: Chip Jerome, [address] [place] [address], [address]. tel:[phone] OFFICE/OUTPAT IENT VISIT, [facility], [address] [place] [address], [id number] , [place] tel:[phone] [facility] Widespread pain (chief complaint) Chronic pain syndromePain in right hipRadiculopat hy, lumbar regionOther intermediate (current) drug therapyLong term (current) use of opiate analgesic 4 Olivia [place]view, [address] [place], [address], [place]. tel:[phone] Referring Provider: Chip Jerome, [address] [place] [address], [address]. tel:[phone] OFFICE/OUTPAT IENT VISIT, [facility], [address] [place] [address], [id number] , [place] tel:[phone] [facility] low back pain (chief complaint) Chronic pain syndromePain in right hipRadiculopat hy, lumbar regionOther terminal block assembler (current) drug therapyLong term (current) use of opiate analgesic 4 Leighann Marc. [address], [place], [place], [id number], [place]. tel:[phone] Referring Provider: Chip Jerome, [address] [place] [address], [address]. tel:[phone] OFFICE/OUTPAT IENT VISIT, [facility], [address] [place] [address], [id number] , [place] tel:[phone] [facility] low back pain (chief complaint) Encounter for therapeutic drug level monitoringChro shaunna pain syndromePain in right hipRadiculopat hy, lumbar regionOther intermediate (current) drug therapyLong term (current) use of opiate analgesic 4 Olivia Marquis, [address] [place], [address], [place]. tel:[phone] Referring Provider: Chip Jerome, [address] [place] [address], [address]. tel:[phone] [facility], [address] [place] [address], [id number] , [place] tel:[phone] [facility] No Information Dec- 4 Baker [place], [address], [place], [facility], [place]. tel:[phone] Referring Provider: Chip Jerome, [address] [place] [address], [address]. tel:[phone] OFFICE/OUTPAT IENT VISIT, [facility], [address] [place] [address], [id number] , [place] tel:[phone] [facility] low back pain (chief complaint) Chronic pain syndromePain in right hipRadiculopat hy, lumbar regionOther intermediate (current) drug therapyLong term (current) use of opiate analgesicEncou nter for therapeutic drug level monitoring 4 Baker Aron. [place], [address], [place], [facility], [place]. tel:[phone] Referring Provider: Chip Jerome, [address] [place] [address], [address]. tel:[phone] OFFICE/OUTPAT IENT VISIT, [facility], [address] [place] [address], [id number] , [place] tel:[phone] [facility] low back pain (chief complaint) Chronic pain syndromePain in right hipRadiculopat hy, lumbar regionOther intermediate (current) drug therapyLong term (current) use of opiate analgesic Oct- 4 Baker Aron. [place], [address], [place], [facility], [place]. tel:[phone] Referring Provider: Chip Jerome, [address] [place] [address], [address]. tel:[phone] OFFICE/OUTPAT IENT VISIT, [facility], [address] [place] [address], [id number] , [place] tel:[phone] [facility] low back pain (chief complaint) Chronic pain syndromePain in right hipRadiculopat hy, lumbar regionOther intermediate (current) drug therapy Apr-0 5 4 Leighann Marc. [address], [place], [place], [id number], [place]. tel:[phone] Referring Provider: Chip Jerome, [address] [place] [address], [address]. tel:[phone] OFFICE/OUTPAT IENT VISIT, [facility], [address] [place] [address], [id number] , [place] [phone] [facility] low back pain (chief complaint) Chronic pain syndromePain in right hipRadiculopat hy, lumbar regionOther terminal block assembler (current) drug therapyEncount er for therapeutic drug level monitoring Aug- 4 Olivia Sharp. [place], [address] [place] [address], [address], [place]. tel:[phone] Referring Provider: Chip Jerome, [address] [place] [address], [address]. tel:[phone] OFFICE/OUTPAT IENT VISIT, [facility], [address] [place] [address], [id number] , [place] [phone] [facility] low back pain (chief complaint) Radiculopathy, lumbar regionOther intermediate (current) drug therapyChronic pain syndromePain in right hip 3 Carinaekaterina Mooney. [address], [place], [place], [id number], [place]. tel:[phone] Referring Provider: Chip Jerome, [address] [place] [address], [address]. tel:[phone] OFFICE/OUTPAT IENT VISIT, [facility], [address] [place] [address], [id number] , [place] [phone] [facility] low back pain (chief complaint) Other chronic painRadiculopa thy, lumbar regionOther intervertebral disc degeneration, lumbar regionOth specific arthropathies, NEC, oth siteOther intermediate (current) drug therapy 9 Bakercarlos enrique Sharp. [place], [address] [place], [address], [place]. tel:[phone] Referring Provider: Chip Jerome, [address] [place], [address]. tel:[phone] OFFICE CONSULTATION [facility], [address], [place], [id number] , [place] [phone] [facility] low back pain (chief complaint) Other chronic painRadiculopa thy, lumbar regionOther intervertebral disc degeneration, lumbar regionOth specific arthropathies, NEC, oth siteOther intermediate (current) drug therapyEncount er for therapeutic drug level monitoringLong term (current) use of opiate analgesic 9 Olivia SharpPriti [place], [address] [place], [address], [place]. tel:[phone] Referring Provider: Melissa Ramos [address], [address]. tel:[phone] Family History Family Member Type Diagnosis Age At Onset No Information Payers Payer name Insurance type Covered democrat ID Authorleea jenny(s) Medicare [id number] Or Medical Assistance [id number] Social History Type Description Quantity Date Captured Comments Sex Female Smoking Status No Information Chief Complaint And Reason For Visit No Information Reason For Referral Reason For Referral No Information Plan Of Treatment Date Type Action Status Goal UDT. Due on due Goal Weight. Due on d ue Goal MINESWEEPING OFFICER Paperwork. Due on due Goal AST (SGOT). Due on 25 due Goal Order Annual PT. Due on due Goal Creatinine. Due on due Goal ALT (SGPT). Due on due Goal OARS. Due on due Goal PLATE DEVELOPER Scanned. Due on due Goal Medication Recon [...] vaccine ( ). Due on due Goal Review Allergy L ist. Due on due Goal OARS. Due on due Goal Lipid panel. Due on due Goal Creatinine. Due on due Goal Order Annual PT. Due on due Goal Review Allergy L ist. Due on due Goal Zoster vaccine ( ). Due on due Goal Height. Due on [...] due Goal FIT-DNA. Due on due Goal ALT (SGPT). Due on due Goal MINESWEEPING OFFICER Paperwork. Due on due Goal UDT. Due on due Goal AST (SGOT). Due on due Goal PLATE DEVELOPER Scanned. Due on due Goal Unhealthy drug u se screening. Due on due Goal Order Annual PT. Due on due Goal Height. Due on d ue Goal Hepatitis C scre ening. Due on due Goal CT-Colonography. Due on due Goal Weight. Due on d ue Goal Lipid panel. Due on due Goal Unhealthy drug u se screening. Due on due Goal Medication Recon ciliation. Due on due Goal FIT-DNA. Due on due Goal OARS. Due on due Goal Creatinine. Due on due Goal ALT (SGPT). Due on due Goal UDT. Due on due Goal PLATE DEVELOPER Scanned. Due on due Goal MINESWEEPING OFFICER Paperwork. Due on due Goal AST (SGOT). Due on due Goal Zoster vaccine ( ). Due on due Goal Tobacco Use. Due [...] Medication Recon ciliation. Due on due Goal Creatinine. Due on due Goal Order Annual PT. Due on due Goal ALT (SGPT). Due on due Goal PLATE DEVELOPER Scanned. Due on due Goal UDT. Due on due Goal AST (SGOT). Due on due Goal MINESWEEPING OFFICER Paperwork. Due on due Goal OARS. Due [...] vaccine ( 1st). Due on due Goal Order Annual PT. Due on due Goal UDT. Due on due Goal Creatinine. Due on due Goal AST (SGOT). Due on due Goal ALT (SGPT). Due on due Goal MINESWEEPING OFFICER Paperwork. Due on due Goal OARS. Due on due Goal PLATE DEVELOPER Scanned. Due on due Goal Hepatitis C scre ening. Due on due Goal Update Social Hi story. Due on due Goal FIT. Due on due Goal Lipid panel. Due on due Goal CT-Colonography. Due on due Goal Height. Due on d ue Goal MINESWEEPING OFFICER Paperwork. Due on due Goal Zoster vaccine [...] Goal Weight. Due on d ue Goal OARS. Due on due Goal UDT. Due on due Goal PLATE DEVELOPER Scanned. Due on due Goal AST (SGOT). Due on due Goal Creatinine. Due on due Goal ALT (SGPT). Due on due Goal Order Annual PT. Due on due Goal Tobacco Use. Due [...] ue Goal FIT. Due on due Goal Order Annual PT. Due on due Goal AST (SGOT). Due on due Goal CT-Colonography. Due on due Goal Medication Recon ciliation. Due on due Goal Update Social Hi story. Due on due Goal Unhealthy drug u se screening. Due on due Goal Creatinine. Due on due Goal UDT. Due on due Goal ALT (SGPT). Due on due Goal PLATE DEVELOPER Scanned. Due on due Goal OARS. Due on due Goal MINESWEEPING OFFICER Paperwork. Due on due Goal AST (SGOT). Due on due Goal Creatinine. Due on due Goal Weight. Due on d ue Goal CT-Colonography. Due on due Goal Review Allergy L ist. Due on due Goal Hepatitis C scre ening. Due on due Goal Update Social Hi story. Due on due Goal Tobacco Use. Due on due Goal PHQ-9. Due on du e Goal PLATE DEVELOPER Scanned. Due on due Goal ALT (SGPT). Due on due Goal OARS. Due on due Goal MINESWEEPING OFFICER Paperwork. Due on due Goal UDT. Due on due Goal Order Annual PT. Due on due Goal FIT. Due on due Goal Unhealthy drug u se screening. Due on due Goal Zoster vaccine ( 1st). Due on due Goal FIT-DNA. Due on due Goal Height. Due on d ue Goal Lipid panel. Due on due Goal Medication Recon ciliation. Due on due Goal UDT. Due on due Goal Lipid panel. Due on due Goal ALT (SGPT). Due on due Goal MINESWEEPING OFFICER Paperwork. Due on due Goal Creatinine. Due on due Goal PLATE DEVELOPER Scanned. Due on due Goal OARS. Due [...] due Goal FIT-DNA. Due on due Goal CT-Colonography. Due on due Goal FIT-DNA. Due on due Goal Review Allergy L [...] Social Hi story. Due on due Goal MINESWEEPING OFFICER Paperwork. Due on due Goal AST (SGOT). Due on due Goal PLATE DEVELOPER Scanned. Due on due Goal OARS. Due on due Goal Creatinine. Due on due Goal ALT (SGPT). Due on due Goal UDT. Due on due Goal Order Annual PT. Due on due Goal PHQ-9. Due on du e Goal Tobacco Use. Due on due Goal Unhealthy drug u [...] Goal AST (SGOT). Due on due Goal PLATE DEVELOPER Scanned. Due on due Goal ALT (SGPT). Due on due Goal FIT. Due on due Goal Zoster vaccine ( 1st). Due on due Goal Weight. Due on d ue Goal HPV. Due on due Goal Hepatitis C scre ening. Due on due Goal Lipid panel. Due on due Goal OARS. Due on due Goal Order Annual PT. Due on due Goal MINESWEEPING OFFICER Paperwork. Due on due Goal UDT. Due on due Goal Creatinine. Due on due Goal CT-Colonography. Due on due Goal Tobacco cessation counseling completed Goal Tobacco Use. Due on due Goal Weight. Due on d ue Goal FIT-DNA. Due on due Goal Hepatitis C scre ening. Due on due Goal PHQ-9. Due on du e Goal AST (SGOT). Due on due Goal Order Annual PT. Due on due Goal Creatinine. Due on due Goal OARS. Due on due Goal MINESWEEPING OFFICER Paperwork. Due on due Goal PLATE DEVELOPER Scanned. Due on due Goal ALT (SGPT). Due on due Goal UDT. Due on due Goal CT-Colonography. Due on due Goal Height. Due on d ue Goal Medication Recon ciliation. Due on due Goal Zoster vaccine ( ). Due on due Goal Lipid panel. Due on due Goal FIT. Due on due Goal Unhealthy drug u se screening. Due on due Goal Update Social Hi story. Due on due Goal Review Allergy L ist. Due on due Goal HPV. Due on due Goal Medication Recon ciliation. Due on due Goal FIT-DNA. Due on due Goal Zoster vaccine ( ). Due on due Goal Hepatitis C scre ening. Due on due Goal Weight. Due on d ue Goal Unhealthy drug u se screening. Due on due Goal CT-Colonography. Due on due Goal Lipid panel. Due on due Goal Height. Due on d ue Goal Review Allergy L ist. Due on due Goal Update Social Hi story. Due on due Goal HPV. Due on due Goal Tobacco Use. Due on due Goal FIT. Due on due Goal PHQ-9. Due on du e Goal Order Annual PT. Due on due Goal AST (SGOT). Due on due Goal OARS. Due on due Goal MINESWEEPING OFFICER Paperwork. Due on due Goal Creatinine. Due on due Goal UDT. Due on due Goal ALT (SGPT). Due on due Goal PLATE DEVELOPER Scanned. Due on due Goal Weight. Due on d ue Goal FIT. Due on due Goal Hepatitis C scre ening. Due on due Goal Tobacco Use. Due on due Goal Review Allergy L ist. Due on due Goal FIT-DNA. Due on due Goal HPV. Due on due Goal Update Social Hi story. Due on due Goal PLATE DEVELOPER Scanned. Due on due Goal Order Annual PT. Due on due Goal ALT (SGPT). Due on due Goal Creatinine. Due on due Goal UDT. Due on due Goal AST (SGOT). Due on due Goal OARS. Due on due Goal MINESWEEPING OFFICER Paperwork. Due on due Goal Medication Recon ciliation. Due on due Goal Lipid panel. Due on due Goal CT-Colonography. Due on due Goal Height. Due on d ue Goal Unhealthy drug u se screening. Due on due Goal Zoster vaccine ( 1st). Due on due Goal PHQ-9. Due on du e Goal AST (SGOT). Due on due Goal UDT. Due on due Goal Order Annual PT. Due on due Goal ALT (SGPT). Due on due Goal Creatinine. Due on due Goal MINESWEEPING OFFICER Paperwork. Due on due Goal PLATE DEVELOPER Scanned. Due on due Goal OARS. Due [...] vaccine ( ). Due on due Goal Weight. Due on d ue Goal Tobacco Use. Due on due Goal FIT-DNA. Due on due Goal Lipid panel. Due on due Goal Hepatitis C scre ening. Due on due Goal FIT. Due on due Goal PLATE DEVELOPER Scanned. Due on due Goal OARS. Due on due Goal MINESWEEPING OFFICER Paperwork. Due on due Goal UDT. Due on due Goal ALT (SGPT). Due on due Goal PHQ-9. Due on du e Goal FIT-DNA. Due on due Goal Medication Recon ciliation. Due on due Goal FIT. Due on due Goal Creatinine. Due on due Goal Order Annual PT. Due on due Goal AST (SGOT). Due on due Goal Zoster vaccine ( 1st). Due on due Goal Review Allergy L ist. Due on due Goal CT-Colonography. Due on due Goal Tobacco Use. Due on 023 due Goal Weight. Due on d ue Goal Unhealthy drug u se screening. Due on due Goal Hepatitis C scre ening. Due on due Goal Update Social Hi story. Due on due Goal HPV. Due on due Goal Lipid panel. Due on 023 due Goal Height. Due on d ue Future Order: Radiology Order MR I Lumbar [...] CE DRUG ANALYSIS, URINE, WITH MED REPORT ([id number]), Ordered on: Ordered History Of Present Illness Encounter Date Complaint History Of Prese nt Illness low back pain Severity level i s 8. Duration: chronic. The problem is worsening. It occurs persistently. Location of pain is lower back, legs and right hip. Symptoms are aggravated by daily activities and overuse. Symptoms are relieved by pain meds/drugs and rest. 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 [...] Currently prescribed Oxycodone 5mg TID. - Her MINESWEEPING OFFICER had been terminated due to presenting with [...] meds/drugs, rest, HEP and sitting. 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 [...] Presents with a surplus today. - Her MINESWEEPING OFFICER had been terminated due to presenting with multiple medications in her Oxycodone bottle at the last OV. - She is aware that she will be tapered off of her medications. - Expresses her concerns and frustrations with her current situation. - Denies any side effects with current regimen. Comments: This i s my first evaluation [...] No SE noted. No other concerns today. low back pain Severity level i s 8. Duration: chronic. The problem is worsening. Location of pain is lower back, post thighs and left hip. The client describes the pain as an ache and sharp. Symptoms are aggravated by bending, standing, walking, reaching overhead, housework, social activities and self care. Symptoms are relieved by physical therapy and medications. right hip pain Duration chronic . The problem is worsening. Location of pain is right. low back pain Severity level i s 8. Duration: chronic. The problem is worsening. Comments: Cornelia is a 64 y/o woman presenting via [facility] for the management of chronic right hip [...] of her oxycodone. No other concerns today. low back pain Severity level i s 8. Duration: chronic. The problem is worsening. It occurs persistently. The client describes the pain as an ache and sharp. Symptoms are aggravated by bending, standing and walking. Symptoms are relieved by lying down and sitting. right hip pain Severity level i s severe. Duration chronic. The problem is worsening. It occurs constantly. Location of pain is right. The client describes the pain as an ache and burning. Symptom is aggravated by standing and walking. Relieving factors include rest. Pertinent negatives include fever. Comments: Cornelia is a 64 y/o woman presenting in clinic today for the management of chronic right hip and low back pain. Her pain has been worse. Her pain score today is 8/10. Hip replacement at [facility] has been rescheduled to 06/03/24. [...] short. Violation noted. No other concerns today. right hip pain Severity level i s severe. Duration chronic. The problem is worsening. Location of pain is right. Pertinent negatives include fever. low back pain Severity level i s 8. Duration: chronic. The problem is improving. Comments: Maryana leach broke her back on [...] presents on track. No other concerns today. Comments: Cornelia is a 64 y/o woman presenting via [facility] today for the management of chronic right hip and low back pain. Her pain has been worse. Her pain score today is 8/10. Hip replacement at [facility] has been rescheduled to 06/03/24. Although her back is getting better her hip is getting worse. Her pain has been radiating down BL LE making it difficult to walk. She can still perform daily activities such as going to the store and can lift light weight.Speculates she had an MRI of her hip done in January or December. right hip pain Duration chronic . The [...] scheduled for 03/08/[address] Early at [facility] [facility] Plans to go to rehab after, unsure how long.-Has follow up with [facility] on Monday for her increased [...] care to Tari Lawton CNP at the [facility] in the coming months.She notes that she is scheduled to undergo a hip replacement in the near future with Dr. Eastman at [facility]. Although, her pain has been [...] No other concerns today. Widespread pain Duration: chroni c. Comments: Cornelia presents in clinic for follow [...] undergo a right hip replacement with Dr. Ochoa in February 2024. She is hopeful this will provide some relief to her lower back pain.She has been finding minimal relief with her oxycodone 10mg, though since her pain continues to worsen, it has gotten less effective. Her terminal block assembler goal is still to complete surgery and taper off her medications once she has fully recovered. No other concerns today. Widespread pain Severity level i s 6. [...] include diarrhea, fatigue, fever and incontinence (urinary). low back pain Severity level i s 7. Duration: chronic. The problem is worsening. It occurs persistently. The client describes the pain as sharp. Symptoms are aggravated by all movements. Symptoms are relieved by ice, pain meds/drugs and rest. Comments: Cornelia is a 64 y/o female [...] undergo a right hip replacement with Dr. Ochoa in February 2024. She is hopeful this [...] due to being short again today. Her intermediate goal is still to complete surgery and [...] a right hip replacement with Dr. Patel [facility] in January. She will likely [...] and return to clinic in 2 weeks. MINESWEEPING OFFICER violation issued. 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 She has not yet picked up medical cannabis. No other concerns today. Comments: Cornelia is [...] accompanied today.Patient consulted with Dr. Eastman of [facility] and is hopeful to undergo a right hip replacement with him as her pain continues to worsen. She has been finding better relief with her Oxycodone 10mg, though sometimes struggles when it wears off between doses. Presents without medication today. 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 low back pain Severity level [...] been out of town. Requests a referral today.[place] was not beneficial to her pain and expresses interest in another pain medication today. Also expresses concern with the amount of Tylenol she's taking. Agreeable to trial Oxycodone 10mg and begin chronic opioid therapy as she was previously taking medication sparingly. Has not trialed medical cannabis yet. No other concerns today. low back pain Severity level i s 6. Duration: chronic. The problem is worsening. It occurs persistently. The client describes the pain as an ache and sharp. Symptoms are aggravated by lifting, standing, walking, bending backward, housework, movement, prolonged positions and stairs. Symptoms are relieved by heat, ice, massage, rest and chiropractic. Comments: This i s my first evaluation [...] scheduled a follow up with ortho yet.At [facility], a Medrol dose pack and oxycodone [...] and leg, referred by Dr. Ramos at [facility]. Pain began gradually three years ago. Patient was previously seen at [facility] in 2018. Pain averages 7/10 and is described as constant and sharp. Notes pain is aggravated by increased activity and she has experienced increased depression d/t inability to participate in daily activities. Patient is accompanied by her daughter, Lashanda, who participates in today's discussion. She has tried a L5-S1 IESI by Dr. Alvarez at [facility] in December 2017 with no significant relief. She had cortisone injections in her right hip approximately 6 months ago with no benefit. Her most recent lumbar MRI was done in 2016. States she is planning on starting pool therapy at a senior center in [place]. The patient is currently managed on Tylenol and Gabapentin with limited relief. She was in the ED in Summer 2022 and was given oxycodone, which provided significant relief and contributed to increased energy. Cornelia is interested in pain management through [facility]. No other concerns today. low back pain [...] rest, sitting and chiropractic. low back pain Severity level [...] down and pain meds/drugs. low back pain (comments) Cornelia is here [...] questions or other concerns. low back pain (comments) Cornelia is here [...] no longer cover. Tried epidural injections at [facility] with variable relief. Reports previous imaging at [facility]- report available today for provider review. Currently taking Ibuprofen 600mg once daily. Previously managed on Flexeril, but reports issues with liver function and has since discontinued. She is interested in medical cannabis as recreational use has been helpful.Cornelia is interested in medical cannabis and other recommended therapies and would like [facility] to assume management of pain care. low back pain Onset: gradual w ithout [...] relieved by lying down, rest and chiropractic. Functional Status Date Functional Assessmen t No Information Instructions Date Instruction Additional Infor mation No Information Assessments Type Assessment Date No Information Patient Care Teams Name Effective Dates (start - stop) Status Members No Information
--- OUTSIDE RECORDS SUMMARY | 2024-12-31 07:40 | XMS_ITS | Continuity of Care Document ---
Author Organization [facility] Address [address] [place] [address] Phone Care Team Providers Care Retort Furnace Helper Name Role Phone Kayla Peter CNP Unavailable Unavailable Allergies, Adverse Reactions, Alerts Substance Reaction Status Criticality Penicillins Active No Information Medications Medication Instructions Dosage Effective Dates (start - stop) Status Comments METOPROLOL SUCCINATE (unknown strength) take 1 tablet by oral route every day Not Available - Active GABAPENTIN (unknown strength) take 1 capsule by oral route 3 times every day Not Available - Active ELIQUIS (unknown strength) take 2 tablet by oral route 2 times every day Not Available - Active FUROSEMIDE (unknown strength) take 1 tablet by oral route 2 times every day Not Available - Active oxycodone 5 mg tablet take 1 Tablet by ORAL route 4 times every day as needed for moderate to severe pain 5 - No Longer Active Chronic pain. New prescriber oxycodone 5 mg tablet take 1 Tablet by ORAL route 4 times every day as needed for moderate to severe pain 5 - On Hold Chronic pain. New prescriber Procedures Procedure Date Est Pt Eval Moderate [facility] ASSMT/REASSESSMENT Audio Est Pt Eval Telehealth New Pt Eval Moderate Results Test Name Date and Time Measure Units Reference Range Abnormal Flag Status Comments Panel Description: Point Of Care Testing (with T HC) Final POCT-Opiates neg Final POCT Amphetamine neg ng/mL Final POCT-Methamphetam ine neg Final POCT-Cocaine neg Final POCT-Marijuana pos Final POCT-Creatinine wnl Final POCT-Specific [place] wnl Final Recollection? no Final POCT-Temperature 90 Final Advance Directives Directive Yes / No Effective Date File Name Intubation Not Answered N/A N/A Antibiotics Not Answered N/A N/A IV Fluid Support Not Answered N/A N/A Tube Feed Not Answered N/A N/A Other Directive No N/A N/A WARNING:The information contained in this section is historical and is provided for information only and does not constitute a legal document or any assurance that the information is still accurate. Please verify the information with the cordova of the legal document before using it for clinical purposes. Encounters Encounter Description Practice Location Reason(s) For Visit Diagnoses Date Provider Providers Copied on Encounter Est Pt Eval Moderate [facility], [address], [place], [place], [id number], tel:[phone] [facility] lower back pain (chief complaint) Essential (primary) hypertensionSpinal stenosis, lumbosacral regionRadiculopathy , lumbar regionLow back painOsteoporosisSpo ndylosis w/o myelopathy or radiculopathy, lumbar region 5 Ketola Barnstable. [address], [place], [place], [address], [place]. tel:[phone] Referring Provider: Pavel Rosales, [address], [place], [address] . tel:[phone] AYSE Aguirre, [address], [place], [place], [id number], [place] tel:[phone] [facility] Spinal stenosis, lumbosacral regionPain disorder with related psychological factors 5 Elliott Na. [address], [address], [facility] [place], [id number], [place]. tel:[phone] Referring Provider: Pavel Rosales, [address], [place], [address] . tel:[phone] Est Pt Eval Telehealth [facility], [facility], [address], [place], [place], [id number], [place] tel:[phone] [facility] lower back pain (chief complaint) Spinal stenosis, lumbosacral regionOsteoporosisL ow back painRadiculopathy, lumbar region 5 Ketola Kayla. [address], [address], [place], [place], [id number], [place]. tel:[phone] Referring Provider: Pavel Rosales, [address], [place], [address] . tel:[phone] New Pt Eval Moderate [facility], [facility], [address], [place], [place], [id number], [place] tel:[phone] [facility] lower back pain (chief complaint) Radiculopathy, lumbar regionLow back painOsteoporosisSpi nal stenosis, lumbosacral region 5 Connie Zhao. [address], [place], [id number], [place]. tel:[phone] Referring Provider: Pavel Rosales, [address], [place], [address] . tel:[phone] Family History Family Member Type Diagnosis Age At Onset No Information Payers Payer name Insurance type Covered libertarian ID Du alvarado(s) Medicare Part B [id number] Medical Assistance [facility] [id number] Social History Type Description Quantity Date Captured Comments Alcohol Use Details No Caffeine Use Details Unknown Tobacco Use Status Moderate cigarette smoker (10-19 cigs/day) Smoking Status Heavy tobacco smoker Smoking Tobacco Use Details Cigarette: No Details Available Cigarette: 0.5 Packs per day Sex Female Vital Signs Date / Time: Height Weight BMI Pulse Rate Blood Pressure Temperature Respiratory Rate Body Surface Area Head Circumference Head Circ. Percentile Wt./Jerry. Percentile BMI percentile Pulse Ox Inhaled Ox 12:36 PM 62.00 in 58.332 kg (128.60 lbs) 23.5 2 kg/m eter (2) 90 /min 146/93 mm[Hg] 97.90 F 85 % Chief Complaint And Reason For Visit From encounter dated '12/31/2024 12:40'. lower back pain (chief complaint). Description: The pain is located in the low back on both sides. The lower back pain radiates into the both legs. Pain intensity is currently 8/10.The pain has been worsening . The pain is described as aching, burning and sharp. The following activities make the pain worse: movement. The following activities make the pain better: lying down. Reason For Referral Reason For Referral No Information Plan Of Treatment Date Type Action Status Goal Tobacco cessation counseling completed Goal Tobacco cessation counseling completed Referral Ordered: Pain Medicine (related to Radiculopathy, lumbar region) ordered Referral Ordered: Referrals: Pain Medicine. Location: [facility]. Evaluate and treat ordered Future Order: Lab Order 7 Panel UDT ([facility] NELSON), Collected on: , Sent on: Sent Medication oxycodone 5 mg t ablet:take 1 Tablet by ORAL route 4 times every day as needed for moderate to severe pain On Hold History Of Present Illness Encounter Date Complaint History Of Prese nt Illness lower back pain The pain is loca alea in the low back on both sides. The lower back pain radiates into the both legs. Pain intensity is currently 8/10.The pain has been worsening . The pain is described as aching, burning and sharp. The following activities make the pain worse: movement. The following activities make the pain better: lying down. lower back pain The pain is loca alea in the low back on both sides. The lower back pain radiates into the both legs. Pain intensity is currently 8/10.The pain is described as burning, sharp and spasming. The following activities make the pain worse: movement. The following activities make the pain better: lying down. lower back pain The pain is loca alea in the low back on both sides. The lower back pain radiates into the both legs. Pain intensity is currently 8/10.The pain has been stable . The following activities make the pain worse: movement and walking. The following activities make the pain better: lying down. Functional Status Date Functional Assessmen t Pain Score 8/10 Instructions Date Instruction Additional Infor pamelajosefina Procedures:- Conside r lumbar medial branch block on the path to radiofrequency ablation Related to Spondylosis w/o myelopathy or radiculopathy, lumbar region Medications:- Refill and continue Prescribed oxycodone 5mg up to 4x/day, for fill 01/11/25- Continue Gabapentin 200mg up to 2x/day as prescribed by outside providerFollow up/ Appointments:- Follow up with neurologist as scheduled- Follow up with [facility] for continued medication management while you undergo Prolia injections and consider surgery* Call [phone] to discuss next steps for [facility] evaluation- Follow up with nurse practitioner or another JACQUE in 4 weeks, telehealth ok Related to Spinal stenosis, lumbosacral region Same as above Related to Radic ulopathy, lumbar region Same as above Related to Low b ack pain - Keep Prolia inject ion therapy as scheduled in May Related to Osteoporosis Hypertension education Related t o Essential (primary) hypertension Same as above Related to Radic ulopathy, lumbar region Medications:- Refill and continue Prescribed oxycodone 5mg up to 4x/day, for fill 12/12/24- STOP Butrans 5mcg/hr *Dispose at local pharmacy, police station, or fire station- Continue Gabapentin 200mg up to 2x/day as prescribed by outside providerFollow up/ Appointments:- Schedule annual behavioral health evaluation, telehealth ok - Consider re-trialing PT- Follow up with [facility] for continued medication management while you undergo Prolia injections and consider surgery* Call [phone] to discuss next steps for [facility] evaluation- Follow up with nurse practitioner or another JACQUE in 4 weeks, [facility] Related to Spinal stenosis, lumbosacral region - Keep Prolia inject ion therapy as scheduled Related to Osteoporosis Same as above Related to Low b ack pain - Prescribed oxycodo ne 5mg up to 4x/day- Prescribed butrans 5mcg/hr 1 patch 7x/day- Schedule Prolia therapy as soon as you are able- Follow up with [facility] for continued medication management while you undergo Prolia injections and consider surgery* Call [phone] in 3 days to discuss next steps for [facility] evaluation Related to Spinal stenosis, lumbosacral region Same as above Related to Radic ulopathy, lumbar region - Keep Prolia inject ion therapy as scheduled Related to Osteoporosis Same as above Related to Low b ack pain Assessments Type Assessment Date assessment Essential (primary) hypertension assessment Spinal stenosis, lumbosacral reg ion impression Cornelia presents to [facility] with several years of low back pain that frequently radiates into her DOUGLAS legs worse with standing and walking. She gets good relief from sitting and forward leaning onto a cart to get through a grocery store. Lumbar MRI demonstrates multiple chronic burst Fx L1 and L3, L4 with L4-5 unstable grade 1 degenerative spondylolisthesis and severe spinal stenosis.Today, 12/31/24, her pulse ox was reading 85. She was provided some oxygen at 2L/min in clinic and O2 sats readings are just above 91%. Otherwise, she mentioned she has an appointment with her neurologist soon. She has trialed PT through [facility] following right hip arthroplasty with some limited relief of her low back pain. She has been evaluated through [facility] with consideration for surgery to address her pain with recommendation that she first undergo treatment for osteoporosis before being considered for surgery.She also reports steroid injection more than 3 years ago with 1 day of relief, and she does not want to retrial injections at this time.At last visit, patient was referred to [facility] and [facility] for medication management.. She is not scheduled for initial evaluation yet as of 12/31/24. Informed patient [facility] will refill her medications until she schedules. She was made aware medication management with [facility] will not be fdc. She verbalized her understanding. Patient notes she is planning to go up to their location this week to fill out new patient forms, 12/31/24. Provided with new patient intake form today.Patient completed annual BH on 12/03/24.Patient was prescribed oxycodone 5mg up to 4x/day. She notes she prefers this medication without APAP. Denies SE or relief. She notes she has increased pain that is not being covered and would like additional medication. Explained to patient an alternative or increase pain medication is too risky to prescribe due to her hx of respiratory depression along with other health issues. I am not comfortable increasing the frequency of her Oxycodone as well as the dosage. Refilled no changes.Note: Patient has history of respiratory depression, CHF, possible COPD- current smoker, and vascular disease.She is prescribed Gabapentin 200 mg up to 2x/day from an outside provider.UDT obtained 12/31/24. Patient last took her medication today, assessment Radiculopathy, lumbar region Dec impression Same as above assessment Low back pain impression Same as above assessment Osteoporosis impression She also reports rec ent Dx of severe osteoporosis, and prior surgical evaluations have recommended addressing osteoporosis prior to lumbar surgery. She is set to receive her second Prolia injection therapy in May assessment Spondylosis w/o myelopathy or ra diculopathy, lumbar region impression Today, 12/31/24 rehana haylee was educated on purpose of LMBB to eval facet-mediated low back pain. Explained LMBB is a precursor to LRFA and aids in confirming involvement of MB nerves. Reviewed that >50% temporary pain relief post-LMBB indicates likely positive response to LRFA. May consider in the future. Provided educational handout. Mental Status Date Cognitive Assessment Orientation - Orange ed to time, place, person, situation. Patient Care Teams Name Effective Dates (start - stop) Status Members No Information
--- OUTSIDE RECORDS SUMMARY | 2024-12-31 07:40 | XMS_ITS | Continuity of Care Document ---
Author Organization [facility] Address [address] [place] [address] Phone Care Team Providers Care Patient Safety Attendant Name Role Phone Kayla Peter CNP Unavailable [...] Procedures Procedure Date Est Pt Eval Moderate [facility] ASSMT/REASSESSMENT Audio Est Pt Eval Telehealth New Pt Eval Moderate Results Test Name Date and Time Measure Units Reference Range Abnormal Flag Status Comments Panel Description: Point Of Care Testing (with T HC) Final POCT-Opiates neg Final POCT Amphetamine neg ng/mL Final POCT-Methamphetam ine neg Final POCT-Cocaine neg Final POCT-Marijuana pos Final POCT-Creatinine wnl Final POCT-Specific Success wnl Final Recollection? no Final POCT-Temperature 90 [...] on Encounter Est Pt Eval Moderate [facility], [address], [place], [place], [id number], tel:[phone] [facility] lower back pain (chief complaint) Essential (primary) hypertensionSpinal stenosis, lumbosacral regionRadiculopathy , lumbar regionLow back painOsteoporosisSpo ndylosis w/o myelopathy or radiculopathy, lumbar region 5 Ketola Pecos. [address], [place], [place], [id number], [place]. tel:[phone] Referring Provider: Pavel Rosales, [address], [place], [address] . tel:[phone] AYSE Aguirre, [address], [place], [place], [id number], [place] tel:[phone] [facility] Spinal stenosis, lumbosacral regionPain disorder with related psychological factors 5 Elliott Na. [address], [address], [facility] [place], [id number], [place]. tel:[phone] Referring Provider: Pavel Rosales, [address] [facility], [place], [address] . tel:[phone] Est Pt Eval Telehealth Timothy, [facility], [address], [place], [place], [id number], [place] tel:[phone] [facility] lower back pain (chief complaint) Spinal stenosis, lumbosacral regionOsteoporosisL ow back painRadiculopathy, lumbar region 5 Ketola Kayla. [address], [address], [place], [place], [id number], [place]. tel:[phone] Referring Provider: Pavel Rosales, [address], [place], [address] . tel:[phone] New Pt Eval Moderate Timothy, [facility], [address], [place], [place], [id number], [place] tel:[phone] [facility] lower back pain (chief complaint) Radiculopathy, lumbar regionLow back painOsteoporosisSpi nal stenosis, lumbosacral region 5 Connie Zhao. [address], [place], [id number], [place]. tel:[phone] Referring Provider: Pavel Rosales, [address], [place], [address] . tel:[phone] Family History Family Member Type Diagnosis Age At Onset No Information Payers Payer name Insurance type Covered libertarian ID Du alvarado(s) Medicare Part B [id number] Medical Assistance [facility] [id number] Social History Type Description Quantity Date Captured [...] with neurologist as scheduled- Follow up with [facility] for continued medication management while you undergo Prolia injections and consider surgery* Call [phone] to discuss next steps for [facility] evaluation- Follow up with nurse practitioner or [...] - Consider re-trialing PT- Follow up with [facility] for continued medication management while you undergo Prolia injections and consider surgery* Call [phone] to discuss [facility] steps for [facility] [...] as you are able- Follow up with [facility] for continued medication management while you undergo Prolia injections and consider surgery* Call [phone] in 3 days to discuss next steps for [facility] evaluation Related to Spinal stenosis, lumbosacral [...] neurologist soon. She has trialed PT through [facility] following right hip arthroplasty with some limited relief of her low back pain. She has been evaluated through [facility] with consideration for surgery to address her pain with recommendation that she first undergo treatment for osteoporosis before being considered for surgery.She also reports steroid injection more than 3 years ago with 1 day of relief, and she does not want to retrial injections at this time.At last visit, patient was referred to [facility] and [facility] for medication management.. She is not scheduled for initial evaluation yet as of 12/31/24. Informed patient [facility] will refill her medications until she schedules. She was made aware medication management with [facility] will not be detention. She verbalized her understanding. Patient notes she [...] Mental Status Date Cognitive Assessment Orientation - Cooper ed to time, place, person, situation. Patient Care Teams Name Effective Dates (start - stop) Status Members No Information
[2025-01-07] VITALS (17 sets, daily range): BP systolic 124–139; BP diastolic 74–80; PULSE 72–94; RESP 16–18; TEMP 36.6–37.1; O2SAT 78–94; BMI 23.4
--- OUTSIDE RECORDS SUMMARY | 2025-01-07 15:53 | XMS_ITS | Clinical Summary ---
Author Organization [facility] Address [address] [place] [address] Care Team Providers Care Time Buyer Name Role Phone Elsewhere, Pcp Primary Care Provider Unavailabl e Source Comments Patient records contain information from all sites at [facility]. For routine questions regarding patient records, call [phone] during business hours, M-F 8:00 AM - 5:00 PM Central Time. Record requests for emergency care only can be directed to [phone] at any time.[facility] Allergies Active Allergy Reactions Criticality Noted Date Comments Penicillins Other (see comments) 06/07/2016 Patient does not recall, she was a young child. Medications acetaminophen (TYLENOL) 500 mg tablet Take 1,000 mg by mouth. 1 Active albuterol 90 mcg/actuation inhaler Inhale 1-2 puffs. 1 Active amLODIPine (NORVASC) 10 mg tablet Take 10 mg by mouth. 1 Active azithromycin (ZITHROMAX) 250 mg tablet TAKE 2 TABLETS BY MOUTH ON DAY 1, THEN 1 TABLET DAILY ON DAYS 2-5. 2 Active calcium carbonate-vitam in D3 1,500 mg (600 mg calcium)-10 mcg (400 Unit) per tablet Take 1 tablet by mouth. 0 Active diclofenac sodium (VOLTAREN) 1 % gel Apply 2 g topically. 2 Active gabapentin (NEURONTIN) 100 mg capsule Take 1 capsule by mouth 2 (two) times a day. 1 Active loratadine (CLARITIN) 10 mg tablet Take 1 tablet by mouth daily. 2 Active raloxifene (EVISTA) 60 mg tablet Take 1 Tablet (60 mg) by mouth once daily. 2 Active sodium chloride (OCEAN) 0.65 % nasal spray Administer 1 spray into nostril(s). 0 Active Social History Tobacco Use Types Packs/Day Years Used Date Smoking Tobacco: Never Assessed Comments Unknown Sex and Gender Information Value Date Recorded Sex Assigned at Not on file Legal Sex Female 1:27 PM CDT Gender Identity Not on file Sexual Orientation Not on file Last Filed Vital Signs Vital Sign Reading Time Taken Comments Blood Pressure 132/68 06/28/2024 12:47 PM MEDICAL PRACTICE MANAGER Pulse 117 03/15/2022 1:14 PM CDT Temperature 37 C (98.6 F) 06/28/2024 11:35 AM MEDICAL PRACTICE MANAGER Respiratory Rate 20 06/28/2024 12:47 PM MEDICAL PRACTICE MANAGER Oxygen Saturation 95% 06/28/2024 12:47 PM MEDICAL PRACTICE MANAGER Inhaled Oxygen Concentration - - Weight 63.3 kg (139 lb 8.8 oz) 03/15/2022 12:46 PM CDT Height 161.6 cm (5' 3.62) 12/03/2021 2:19 PM CD T Body Mass Index 24.24 12/03/2021 2:19 PM CDT Plan of Treatment Health Maintenance Due Date Last Done Comments CT Colonography 1960 Cologuard 1960 FIT 1960 Hepatitis C Screening 1960 Pneumococcal vaccine (50+ years) (1 of 1 - PCV) 01/09/2008 Zoster Vaccines (1 of 2) 01/09/2008 RSV vaccine - (32-36 weeks) or 60+ years (1 - Risk 60-74 years 1-dose series) 2018 Mammogram 03/30/2022 03/30/2021, 03/30/2021 DTaP,Tdap,and Td Vaccines (4 - Td or Tdap) 12/03/2022 12/03/2012, 12/03/2012, 03/24/2008 COVID-19 Vaccine (1 - 2023- season) 2024 Depression Screening (Annual PHQ-2) 07/03/2024 Fall Risk Screen (Annual) 07/03/2024 Influenza Vaccine (#1) 2025 0, 06/24/2019, 05/06/2016 Fasting Glucose for Diabetes Screening 06/28/2027 06/28/2024, 06/12/2024, 06/10/2024, Additional history exists Colonoscopy 06/02/2031 06/02/2021 Colorectal Cancer Screening 06/02/2031 Cervical/Vaginal Cancer Screening Discontinued 10/21/2021 Bone Density Scan (Osteoporosis Screen) Discontinued 10/04/2023 IPV Vaccines Aged Out No longer eligi ble based on patient's age to complete this topic Procedures Procedure Name Priority Date/Time Associated Diagnosis Comments COMPREHENSIVE METABOLIC PANEL, S/P STAT 06/28/2024 12:06 PM MEDICAL PRACTICE MANAGER from Last 3 Months or Most Recently Relevant to Health Maintenance Results * (ABNORMAL) Comprehensive Metabolic Panel (06/28/2024 12:06 PM MEDICAL PRACTICE MANAGER) Potassium, P 4.6 3.6 - 5.2 mmol/L 06/28/2024 12:28 PM MEDICAL PRACTICE MANAGER CNFL Sodium, P 135 135 - 145 mmol/L 06/28/2024 12:28 PM MEDICAL PRACTICE MANAGER CNFL Chloride, P 95(L) 98 - 107 mmol/L 06/28/2024 12:28 PM MEDICAL PRACTICE MANAGER CNFL Bicarbonate, P 32(H) 22 - 29 mmol/L 06/28/2024 12:28 PM MEDICAL PRACTICE MANAGER CNFL Anion Gap, P 8 7 - 15 06/28/2024 12:28 PM MEDICAL PRACTICE MANAGER CN[facility] BUN (Blood Urea Nitrogen), P 12 6 - 21 mg/dL 06/28/2024 12:28 PM MEDICAL PRACTICE MANAGER CNFL Creatinine 0.56(L) 0.59 - 1.04 mg/dL 06/28/2024 12:28 PM MEDICAL PRACTICE MANAGER [facility] Estimated GFR (eGFR) >90 >=60 mL/min/BS A 06/28/2024 12:28 PM MEDICAL PRACTICE MANAGER CNFL Comment: Estimated GFR calculated using the 2020 CKD_EPI creatinine equation. Calcium, Total, P 10.0 8.8 - 10.2 mg/dL 06/28/2024 12:28 PM MEDICAL PRACTICE MANAGER CNFL Glucose, P 117 70 - 140 mg/dL 06/28/2024 12:28 PM MEDICAL PRACTICE MANAGER CNFL Protein, Total, P 6.6 6.3 - 7.9 g/dL 06/28/2024 12:28 PM MEDICAL PRACTICE MANAGER CNFL Albumin, P 3.5 3.5 - 5.0 g/dL 06/28/2024 12:28 PM MEDICAL PRACTICE MANAGER CNFL Aspartate Aminotransferase (AST), P 14 8 - 43 U/L 06/28/2024 12:28 PM MEDICAL PRACTICE MANAGER CNFL Alkaline Phosphatase, P 87 35 - 104 U/L 06/28/2024 12:28 PM MEDICAL PRACTICE MANAGER CNFL Alanine Aminotransferase (ALT), P 13 7 - 45 U/L 06/28/2024 12:28 PM MEDICAL PRACTICE MANAGER CNFL Bilirubin, Total, P <0.2 0.0 - 1.2 mg/dL 06/28/2024 12:28 PM MEDICAL PRACTICE MANAGER CNFL Blood (Blood, Venous) 06/28/2024 12:06 PM MEDICAL PRACTICE MANAGER 06/28/2024 12:08 PM MEDICAL PRACTICE MANAGER Dylon Moctezuma P.A.-C., P.A. LAB BLOOD ADD-ON F inal Result [facility] [address] [place] [id number], [facility] CNFL [facility] in [address] [address] from Last 3 Months or Most Recently Relevant to Health Maintenance Insurance [address] [place] [address] [facility] FOR MEDICAID PRODUCTS MEDICARE Care Teams Time Buyer Relationship Specialty Start Date End Date Elsewhere, Pcp PCP - General Internal Medicine 06/28/24
--- OUTSIDE RECORDS SUMMARY | 2025-01-07 15:53 | XMS_ITS | Clinical Summary ---
Author Organization [facility] Address [address] [facility] [place] [address] Care Team Providers Care Outpatient Services Director Name Role Phone Melissa Ramos MD Primary Care Provider [phone] Allergies Active Allergy Reactions Criticality Noted Date Comments Amlodipine Swelling Low 12/23/2022 Edema Losartan Low 12/23/2022 Alopecia Metoprolol Low 12/23/2022 Alopecia Penicillins 07/22/2014 Patient does not recall, she was a young child. Spironolactone Low 12/23/2022 Hyperkalemia Medications albuterol (PROAIR HFA, PROVENTIL HFA, VENTOLIN HFA) 108 (90 BASE) MCG/ACT inhalerIndications :Bronchitis with bronchospasm Inhale 2 puffs into the lungs every 4 hours as needed for shortness of breath / dyspnea or wheezing Via a spacer 1 Inhaler 1 5 Active Calcium Carb-Cholecalcifer ol (CALCIUM CARBONATE-VITAMIN D3 PO) Take 1 tablet by mouth 2 times daily. Active furosemide (LASIX) 20 MG tablet Take 20 mg by mouth daily as needed. Active gabapentin (NEURONTIN) 300 MG capsule Take 300 mg by mouth 2 times daily. Active metoprolol succinate ER (TOPROL XL) 50 MG 24 hr tablet Take 50 mg by mouth daily. Active Multiple Vitamins-Minerals (MULTIVITAMIN ADULTS 50+) TABS Take 1 tablet by mouth daily. Active nicotine (NICODERM CQ) 14 MG/24HR [address] 1 patch onto the skin every 24 hours. Active acetaminophen (TYLENOL) 325 MG tabletIndications: H/O total hip arthroplasty, right Take 2 tablets (650 mg) by mouth every 4 hours as needed for other (mild pain). 100 tablet 4 Active apixaban ANTICOAGULANT (ELIQUIS) 2.5 MG tabletIndications: H/O total hip arthroplasty, right Take 1 tablet (2.5 mg) by mouth 2 times daily. 60 tablet 4 Active senna-docusate (SENOKOT-S/PERICOL KANU) 8.6-50 MG tabletIndications: H/O total hip arthroplasty, right Take 1-2 tablets by mouth 2 times daily. Take while on oral narcotics to prevent or treat constipation. 30 tablet 4 Active oxyCODONE (ROXICODONE) 5 MG tabletIndications: H/O total hip arthroplasty, right Take 1 tablet (5 mg) by mouth every 6 hours as needed for moderate to severe pain. 33 tablet 4 Active hydrOXYzine HCl (ATARAX) 10 MG tabletIndications: H/O total hip arthroplasty, right Take 1 tablet (10 mg) by mouth every 6 hours as needed for itching or anxiety (with pain, moderate pain). 30 tablet 4 Active acetaminophen (TYLENOL) 325 MG tabletIndications: History of total left hip replacement Take 3 tablets (975 mg) by mouth every 8 hours. 120 tablet 4 Active cephALEXin (KEFLEX) 500 MG capsuleIndications :History of total left hip replacement Take 1 capsule (500 mg) by mouth 3 times daily. 21 capsule 4 Active Active Problems Problem Noted Date Diagnosed Date History of total left hip replacement 06/03/2024 Abnormal Pap smear of cervix 03/25/2015 Overview (01/07/2017): Age 15 01/07/17 Patient is considered lost to f/u, acknowledged by provider. 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 Plan cotest pap & HPV in 1 year Tracking started. Essential hypertension 01/23/2015 CARDIOVASCULAR SCREENING; LDL GOAL LESS THAN 160 07/30/2014 Immunizations Immunization Administration Dates Next Due TD,PF 7+ (Teniva) 12/03/2012 Family History Medical History Relation Comments Heart Disease Father Family History Negative Mother Relation Status Comments Father Mother Social History Tobacco Use Types Packs/Day Years Used Date Smoking Tobacco: Every Day Cigarettes 0.5 40.6 Started: 05/29/1984 Smokeless Tobacco: Never Tobacco Cessation:Ready to Q uit: Not Asked; Counseling Given: Not Answered Alcohol Use Standard Drinks/Week Comments Not Currently 0 (1 standard drink = 0.6 oz pur e alcohol) social Interpersonal Safety Answer Date Record ed Do you feel physically and e motionally safe where you currently live? Yes 06/03/2024 Within the past 12 months, h ave you been hit, slapped, kicked or otherwise physically hurt by someone? No 06/03/2024 Within the past 12 months, h ave you been humiliated or emotionally abused in other ways by your partner or ex-partner? No 06/03/2024 Comments No Sex and Gender Information Value Date Recorded Sex Assigned at Not on file Legal Sex Female 2:37 PM COMMODITY SPECIALIST Gender Identity Not on file Sexual Orientation Not on file Last Filed Vital Signs Vital Sign Reading Time Taken Comments Blood Pressure 126/77 06/05/2024 7:21 AM COMMODITY SPECIALIST Pulse 93 06/05/2024 7:21 AM COMMODITY SPECIALIST Temperature 37.1 C (98.8 F) 06/05/2024 7:21 AM COMMODITY SPECIALIST Respiratory Rate 16 06/05/2024 7:21 AM COMMODITY SPECIALIST Oxygen Saturation 92% 06/05/2024 7:21 AM COMMODITY SPECIALIST Inhaled Oxygen Concentration - - Weight 56.9 kg (125 lb 6.4 oz) 06/03/2024 6:27 A M COMMODITY SPECIALIST Height 157.5 cm (5' 2) 06/03/2024 6:27 AM COMMODITY SPECIALIST Body Mass Index 22.94 06/03/2024 6:27 AM COMMODITY SPECIALIST Plan of Treatment Health Maintenance Due Date Last Done Comments ANNUAL REVIEW OF HM ORDERS 1960 CT COLONOGRAPHY 1958 FIT 1958 FLEX SIG 1958 sDNA (Cologuard) 1958 PNEUMOCOCCAL VACCINE 50+ YEARS (1 of 2 - PCV) 1977 LIPID 1998 LUNG CANCER SCREENING 01/09/2008 ZOSTER VACCINE (1 of 2) 01/09/2008 DTAP/TDAP/TD VACCINE (1 - Tdap) 12/04/2012 12/03/2012, 12/03/2012 NICOTINE/TOBACCO CESSATION COUNSELING Q 1 YR 03/11/2016 03/11/2015 RSV VACCINE (1 - Risk 60-74 years 1-dose series) 2018 FALL RISK ASSESSMENT 2023 COVID-19 VACCINE (1 - season) 2024 PHQ-2 (once per calendar year) 2024 INFLUENZA VACCINE (#1) 2025 , 06/24/2019, 05/06/2016 MEDICARE ANNUAL WELLNESS VISIT 03/05/2025 03/05/2024, 03/11/2015 BMP 06/05/2025 06/05/2024, 12/0 09/2023, 03/11/2015, Additional history exists DEXA 10/03/2026 10/04/2023 DIABETES SCREENING 06/12/2027 06/12/2024, 1 08/11/2023, 06/05/2024, Additional history exists ADVANCE CARE PLANNING 06/10/2029 06/10/2024 COLONOSCOPY 06/02/2031 06/02/2021, 07/03/2007 COLORECTAL CANCER SCREENING 06/02/2031 PAP Discontinued 03/11/2015 HEPATITIS C SCREENING Completed 02/20/2019 MAMMO SCREENING Discontinued 03/30/2021 HPV VACCINE Aged Out No longer eligi ble based on patient's age to complete this topic MENINGITIS VACCINE Aged Out No longer eligible based on patient's age to complete this topic Medical Devices Implanted Type Area Sr. Social Media & Mobile Manager Device Identifier Shelf Expiration Date Model / Serial / Lot Imp Scr Bone Can Kanu 6.5x30mm 1217-30-500 - [id number] Implanted:Qty : 1 on 06/03/2024 by Evert Eastman MD at [facility] Metallic Hardware/An chor Right: Hip [employer] [id number] / / Imp Scr Bone Can Kanu 6.5x30mm 1217-30-500 - [id number] Implanted:Qty : 1 on 06/03/2024 by Evert Eastman MD at [facility] Metallic Hardware/An chor Right: Hip [employer] [id number] / / Imp Cup Kanu Lane 52mm 1217-22-052 - [id number] Implanted:Qty : 1 on 06/03/2024 by Evert Eastman MD at [facility] Total Joint Component/I nsert Right: Hip [employer] [id number] / / Liner Acetabular Altrx +4 Neut [id number] - [id number] Implanted:Qty : 1 on 06/03/2024 by Evert Eastman MD at [facility] Total Joint Component/I nsert Right: Hip [employer] 03/02/2029 [id number] / / [id number] Imp Stem Fem Hip Depuy [place] Tpr Sz 5 Hi Off 1570-11-110 - [id number] Implanted:Qty : 1 on 06/03/2024 by Evert Eastman MD at [facility] Total Joint Component/I nsert Right: Hip [employer] 05/02/2034 [id number] / / [id number] Imp Head Femoral Depuy 36mm +1.5 1365-51-000 - [id number] Implanted:Qty : 1 on 06/03/2024 by Evert Eastman MD at [facility] Total Joint Component/I nsert Right: Hip [employer] [id number] / / Procedures Procedure Name Priority Date/Time Associated Diagnosis Comments GLUCOSE (OUTREACH) Routine 06/12/2024 9: 00 AM COMMODITY SPECIALIST Essential (primary) hypertension Anemia, unspecified BASIC METABOLIC PANEL Routine 06/05/2024 8:07 AM COMMODITY SPECIALIST PAP IMAGED THIN LAYER SCREEN Routine 03/11/2015 12:00 AM CDT Screening for malignant neoplasm of cervix COLONOSCOPY - HIM SCAN Routine 07/03/2007 from Last 3 Months or Most Recently Relevant to Health Maintenance Results * (ABNORMAL) Glucose (OUTREACH) (06/12/2024 9:00 AM [facility]) Glucose 118(H) 70 - 99 mg/dL 06/12/2024 10:53 AM [facility] Blood STRUCTURE OF RIGHT UPPER LIMB / Unknown Venipuncture / Unknown 06/12/2024 9:00 AM COMMODITY SPECIALIST 06/12/2024 10:12 AM [facility] us Doreen Sellers NP LAB - BLOOD ORDERABLES Final Re sult LABORATORY [facility] [address], [address] [place] [address], [facility] [phone] * (ABNORMAL) Basic metabolic panel (06/05/2024 8:07 AM [facility]) Sodium 131(L) 135 - 145 mmol/L 06/05/2024 9:10 AM [facility] Potassium 4.4 3.4 - 5.3 mmol/L 06/05/2024 9:10 AM [facility] Chloride 98 98 - 107 mmol/L 06/05/2024 9:10 AM [facility] Carbon Dioxide (CO2) 26 22 - 29 mmol/L 06/05/2024 9:10 AM [facility] Anion Gap 7 7 - 15 mmol/L 06/05/2024 9:10 AM [facility] Urea Nitrogen 10.3 8.0 - 23.0 mg/dL 06/05/2024 9:10 AM [facility] Creatinine 0.50(L) 0.51 - 0.95 mg/dL 06/05/2024 9:10 AM [facility] GFR Estimate >90 >60 mL/min/1.7 3m2 06/05/2024 9:10 AM [facility] Comment:eGFR calculated usin 2020 CKD-EPI equation. Calcium 9.4 8.8 - 10.4 mg/dL 06/05/2024 9:10 AM [facility] Comment:Reference intervals for this test were updated on 01/16/2024 to reflect our healthy population more accurately. There may be differences in the flagging of prior results with similar values performed with this method. Those prior results can be interpreted in the context of the updated reference intervals. Glucose 111(H) 70 - 99 mg/dL 06/05/2024 9:10 AM [facility] Blood STRUCTURE OF RIGHT UPPER LIMB / Unknown Venipuncture / Unknown 06/05/2024 8:07 AM COMMODITY SPECIALIST 06/05/2024 8:44 AM COMMODITY SPECIALIST us Meli Stoner MD LAB - BLOOD ORDERABLES Fi nal Result LABORATORY [facility] [address], [address] [place] [address], [facility] [phone] * PAP IMAGED THIN LAYER SCREEN (03/11/2015 12:00 AM CDT) PAP SHA Schmidt Report Patient Name: JUANJOSE RAMOS MR#: [id number] Specimen #: [id number] Collected: 03/11/2015 Received: 03/12/2015 Reported: 03/13/2015 16:09 Ordering Phy(s): SANTO ROY SPECIMEN/STAIN PROCESS: Pap imaged thin layer prep screening (Surepath, FocalPoint with guided screening) Pap-Cyto x 1, Reflex HPV if ASCUS/LSIL x 1 SOURCE: Cervical, endocervical Pap imaged thin layer prep screening (Surepath, FocalPoint with guided screening) SPECIMEN ADEQUACY: Satisfactory for evaluation. -Transformation zone component present. -scant cellularity. CYTOLOGIC INTERPRETATION: Negative for Intraepithelial Lesion or Malignancy Other Non-Neoplastic Findings: -Atrophy. Electronically signed out by: ONEIDA Estrada (ASCP) Processed and screened at [facility], [facility] CLINICAL HISTORY: Post Menopausal, Cryotherapy, Papanicolaou Test Limitations: Cervical cytology is a screening test with limited sensitivity; regular screening is critical for cancer prevention; Pap tests are primarily effective for the diagnosis/preventi on of squamous cell carcinoma, not adenocarcinomas or other cancers. TESTING LAB LOCATION: [facility] [address] [id number] COLLECTION SITE: Client: [facility] Location: [facility] (R) [facility] Cytologic material (specimen) 03/11/2015 03/12/2015 10:45 AM CDT us Santo Roy APRN [facility] SPECIMEN Final Result [facility] * Colonoscopy - HIM Scan (07/03/2007) Narrative Matilde Mccrary - 07/03/2007 Colonoscopy done on this date: 2007 (approximately), by this group: [facility], results were NORMAL us Provider Outside PROCEDURES Final Result from Last 3 Months or Most Recently Relevant to Health Maintenance Insurance [place]ICAID [place] MEDICARE [place]ICAID [place] MEDICARE Advance Directives For more information, please contact: [phone] Documents on File Type Date Recorded 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
--- OUTSIDE RECORDS SUMMARY | 2025-01-07 15:53 | XMS_ITS | Clinical Summary ---
Author Organization [facility] Address [facility] [place] [address] Care Team Providers Care Management Manager Name Role Phone Melissa Ramos MD Primary Care Provider [phone] Allergies Active Allergy Reactions Criticality Noted Date Comments Spironolactone Hyperkalemia Low 12/23/2022 Amlodipine Edema Low 12/23/2022 D/C per [facility] ED visit 12-10-2022 Losartan Alopecia Low 12/23/2022 Metoprolol Alopecia Low 12/23/2022 Penicillins *Unknown 06/07/2016 Patient does not recall, she was a young child. Medications sodium chloride (OCEAN) 0.65 % nasal solutionIndicatio ns:Nasal congestion,Season al allergies Inhale 1 [place] in the nostril(s) every 30 minutes if needed for Nasal Congestion. 45 mL 04/17/20 20 Active calcium carbonate-vitamin D3, 600 mg-400 unit, 600 mg-10 mcg (400 unit) tabletIndications :Severe osteopetrosis (HC) Take 1 Tablet by mouth two times daily with meals. 200 Tablet 4 03/09/20 23 Active multivitamins-min erals-lutein (Multivitamin 50 Plus) tab tabletIndications :Alcohol use, unspecified, in remission Take 1 Tablet by mouth once daily. 90 Tablet 3 03/09/20 23 Active Minoxidil 5 % topical solutionIndicatio ns:Hair thinning Apply topically to affected area(s) once daily. 60 mL 1 06/14/20 23 Active Additional Information Patient not taking.Reason: not using, Reported on 01/02/2025 acetaminophen (TYLENOL EXTRA STRGTH) 500 mg tabletIndications :Other chronic pain TAKE TWO TABLETS BY MOUTH THREE TIMES DAILY. MAX 4000 MG PER 24 HOURS 540 Tablet 3 09/02/19 24 Active oxyCODONE 10 mg tablet Take 10 mg by mouth three times daily. 10/17/19 24 Active furosemide (LASIX) 20 mg tabletIndications :Peripheral edema 20 mg Daily as needed for leg swelling 90 Tablet 03/08/20 24 Active albuterol HFA (PRO-AIR; VENTOLIN; PROVENTIL) 90 mcg/actuation inhalerIndication s:Diffuse wheezing,Chronic bronchitis, unspecified chronic bronchitis type (HC) Inhale 1-2 Puffs by mouth every 4 hours if needed for Shortness of Breath 1st choice or Wheezing 1st choice. 8.5 g 05/15/20 24 Active nicotine 14 mg/24 hr (NICODERM; HABITROL) 14 mg/24 hr patchIndications: Encounter for smoking cessation counseling apply 1 patch transdermally every 24 hours 28 Patch 05/29/20 24 Active metoprolol succinate (TOPROL XL) 50 mg sustained-release tabletIndications :Paroxysmal atrial fibrillation (HC) TAKE ONE TABLET BY MOUTH ONE TIME DAILY 90 Tablet 09/03/19 25 Active gabapentin 300 mg capsuleIndication s:Lumbar radiculopathy TAKE ONE CAPSULE BY MOUTH TWICE DAILY 180 Capsule 11/05/19 25 Active apixaban (Eliquis) 5 mg tabletIndications :Paroxysmal atrial fibrillation (HC) Take 1 Tablet (5 mg) by mouth two times daily. 180 Tablet 11/07/19 25 Active albuterol-ipratro pium (2.5-0.5 mg) in 3 mL NEBULIZATION solutionIndicatio ns:Pulmonary emphysema, unspecified emphysema type (HC) Inhale 3 mL via a nebulizer 4 times daily. 1080 mL 11/20/19 25 Active NebulizerIndicati ons:Pulmonary emphysema, unspecified emphysema type (HC) Nebulizer, disposable neb kit x 4, reuseable neb kit x 1, mask x 1, filters x 1. Frequency of use: daily; Medication: Albuterol-Ipratr opium Length of need: 99 months 1 Each 11/20/19 25 Active buprenorphine 5 mcg/hr 5 mcg/hour transdermal patch Apply 1 Patch on dry, clean, hairless skin once weekly. MANAGED BY PAIN CL[facility]IC 11/20/19 Active oxygen-air delivery systemsIndication s:Hypoxia,Pulmona ry emphysema, unspecified emphysema type (HC) Oxygen for home use with bubbler/humidity as needed for patient comfort. Liters per minute: 1-2 per nasal cannula. Frequency of use: Continuous with portability. Length of need: 12 Months. 1 Each 01/03/20 Active oxygen-air delivery systemsIndication s:Hypoxia,Pulmona ry emphysema, unspecified emphysema type (HC) Oxygen for home use with bubbler/humidity as needed for patient comfort. Liters per minute: 2 per nasal cannula. Frequency of use: Continuous with portability. Length of need: 12 Months. 1 Each 11/20/19 025 Discontin ued(Reord er (E-cancel not sent)) Hospital, Clinic, or Other Facility Administered Medication Ordered Dose Route Frequency Start Date End Date Status denosumab (PROLIA) injection 60 mgIndications:Age-re lated osteoporosis without current pathological fracture 60 mg SubQ Q 6 MONTHS (24 WEEKS) 11/09/2024 10/10/2025 Active denosumab (PROLIA) injection 60 mgIndications:Age-re lated osteoporosis without current pathological fracture 60 mg SubQ Q 26 WEEKS 11/19/2024 11/18/2025 Active Active Problems Problem Noted Date Diagnosed Date Malignant neoplasm of cervix, unspecified site 0 11/20/2024 Lacunar stroke 11/19/2024 S/P hip replacement, right 08/07/2024 Peripheral edema 09/13/2023 Lumbar radiculopathy 09/13/2023 Osteoporosis 09/13/2023 Depression, recurrent 09/13/2023 A-fib 02/09/2023 Heart failure with preserved ejection fraction 0 02/09/2023 Hypertension 02/09/2023 Chronic bilateral low back pain 02/09/2023 Tobacco abuse 02/09/2023 Alcohol abuse 02/09/2023 Rectus sheath hematoma 02/09/2023 Bilateral pleural effusion 02/09/2023 Chronic bronchitis, unspecified chronic bronchit is type 10/21/2021 Colon polyp 06/04/2021 Overview (06/04/2021): Colonoscopy 06/2021 severe diverticulosis, SSA, repeat in 5 years [employer] propofol Severe osteopetrosis 03/17/2021 Hyponatremia 07/15/2020 Spinal stenosis of lumbar re gion with neurogenic claudication 04/17/2017 Overview (01/24/2018): ~ December 2017: L5-S1 [place] epidural steroid injection by Dr. Alvarez. Cervical high risk HPV (human papillomavirus) te st positive Overview (11/08/2022): LEEP: Age 16 - Patient reports done for cervical cancer, no records found. 05/2017 NIL 07/2020 NIL/HPV+, HPV 16/18 Negative 10/2021 NIL/HPV+, HPV 16/18 negative. Plan: Colposcopy Encounters Date Type Department Care Team Description 01/07/2025 12:45 PM CDT Office Visit [facility] [address] [place] [address] Melissa Ramos MD Follow Up 01/07/2025 Travel 01/02/2025 2:45 PM CDT Office Visit [facility] [address] [place] [address] Gabriela Dash MD Outside Order (oxygen orders/) 01/02/2025 Travel 01/02/2025 Telephone [facility] [address] [place] [address] Laura Parikh PA Concerns 01/01/2025 Nurse Triage [facility] [address] [place] [address] Melissa Ramos MD aura (Like with a migraine but denies migraine. Aura changes color, is there when eye is closed, and shape obscures vision and present 24 hours. ); Numbness (Feels numb on left side of face, but not when you touch it.) 01/01/2025 Telephone [facility] [address] [place] [address] Melissa Ramos MD Message (Order for Oxygen inquiry) 11/20/2024 2:50 PM CDT Office Visit [address] [place] [address] Melissa Ramos MD Follow Up 11/19/2024 11:00 AM CDT Ancillary Procedure [facility] [address] [place] [address] 11/19/2024 10:00 AM CDT Procedure Only [facility] [address] [place] [address] Melissa Ramos MD Follow Up (Discuss MRI results) 11/19/2024 Nurse Triage [facility] [address] [place] [address] Melissa Ramos MD Medication List Update (buprenorphine transdermal patch 5mcg/hr) 11/19/2024 Telephone [facility] [address] [place] [address] Melissa Ramos MD Results 11/19/2024 Telephone [facility] [address] [place] [address] [phone] None P2P Transfer (Dr. Ramos to speak with [facility]) 11/19/2024 Travel 11/15/2024 1:15 PM CDT Ancillary Procedure [address] [address] 11/15/2024 Travel 11/08/2024 12:45 PM CDT Office Visit [address] [address] Melissa Ramos MD Medication Management 11/08/2024 Orders Only [address] [address] Melissa Ramos MD <No scans attached> 11/08/2024 Travel 11/05/[address] [address] Melissa Ramos MD Refill Request (Eliquis) 11/02/[address] [address] Melissa Ramos MD Refill Request (Gabapentin) 10/16/2024 Telephone [facility] [address] [place], [place] [phone] Melissa Ramos MD Medication Management (Osteoporosis medication) from Last 3 Months Immunizations Immunization Administration Dates Next Due Influenza, IIV3 (Age >=3 years) 05/06/2016 Influenza, IIV4 04/08/2020,06/24/2019 Td (Age >=7 Years) 12/03/2012 Td, Preservative Free (age >= 7 Years) 3 Tdap 12/03/2012 Family History Medical History Relation Name Comments Heart failure Father Heart failure Paternal Grandfather Cancer-breast No Family History Cancer-ovarian No Family History Relation Name Status Comments Father Paternal Grandfather Social History Tobacco Use Types Packs/Day Years Used Date Smoking Tobacco: Every Day Cigarettes 0.5 40 Smokeless Tobacco: Never Tobacco Cessation:Ready to Q uit: Not Asked; Counseling Given: Not Answered Comments: Alcohol Use Standard Drinks/Week Comments Not Currently 0 (1 standard drink = 0.6 oz pur e alcohol) PHQ-2 Answer Date Recorded PHQ-2 TOTAL SCORE 6 03/05/2024 Social Connections Answer Date Recorded Frequency of Communication with Friends and Fami ly 0 02/17/2023 Financial Resource Strain Answer Date R ecorded Difficulty of Paying Living Expenses 2 02/17/2023 Difficulty of Paying Living Expenses 1 02/17/2023 Food Insecurity Answer Date Recorded Worried About Running Out of Food in the Last Ye ar 2 02/17/2023 Transportation Needs Answer Date Record ed Lack of Transportation (Medical) 1 02/17/2023 Housing Stability Answer Date Recorded Unable to Pay for Housing in the Last Year 1 02/17/2023 Comments No Sex and Gender Information Value Date Recorded Sex Assigned at Not on file Legal Sex Female 9:51 AM CDT Gender Identity Not on file Sexual Orientation Not on file Occupation Industry Job Start Date Job End Date Not on file Not on file Not on file Not on file Obstetrics History Para Term AB IAB SAB Ectopic Multiple Livin g Live Births 5 4 4 Date Outcome GA Total Labor Labor/2nd/3rd Weight Sex Type Anes PTL Jazmin A1 A5 Name Clin Term Term Term Term Last Filed Vital Signs Vital Sign Reading Time Taken Comments Blood Pressure 128/81 01/07/2025 12:56 PM CDT Pulse 95 01/07/2025 12:56 PM CDT Temperature 36.8 C (98.3 F) 03/14/2024 1:54 PM CDT Respiratory Rate 18 02/14/2023 8:07 AM CDT Oxygen Saturation 87% 01/07/2025 12: 56 PM CDT Inhaled Oxygen Concentration - - Weight 58.4 kg (128 lb 12.8 oz) 025 12:56 PM CDT Height 157.6 cm (5' 2.05) 05/15/2024 1:32 PM CS T Body Mass Index 23.52 05/15/2024 1:32 PM BOX STRAPPER Plan of Treatment Upcoming Encounters Date Type Department Care Team (Late st Contact Info) Description 03/05/2025 3:00 PM CDT Office Visit [facility] [address] [facility] [address] [place] [address] Vlad Handley MD [address] [facility] [address] [place] [address] 04/29/2025 1:40 PM CDT Office Visit [facility] [place] [address] [facility] [address] [place] [phone] Ji Vides MD [address] [facility] [address] [place], [place] [phone] Health Maintenance Due Date Last Done Comments COVID-19 vaccine series (#1) 1963 Pneumococcal series for age 50+ (1 of 2 - PCV) 1977 Zoster (shingles) series for age 50+ (1 of 2) 1977 RSV vaccine for adults or (1 - Risk 60-74 years 1-dose series) 2018 Mammogram for age 45-75 03/30/2022 03/30/2021 Tetanus booster 12/03/2022 12/03/2012, 0608/2012, 12/03/2012 Influenza Vaccine (#1) 2025 , 06/24/2019, 05/06/2016 Medicare Wellness for age 65+ 03/06/2025 03/05/2024 Depression screening for age 12+ 03/08/2025 03/08/2024, 03/08/2024, 03/07/2024, Additional history exists BMI (ht and wt on same day) for age 18+ 05/15/2025 05/15/2024, 03/14/2024, 03/05/2024, Additional history exists Low Dose CT (for lung CA) age 50-80 05/21/2025 05/21/2024 Lipids for age 45-75 03/05/2029 03/05/2024, 02/09/2023, 03/17/2021, Additional history exists Colonoscopy through age 75 06/02/203106/02, 06/02/2021, 06/02/2021 Hepatitis C screening for age 18-79 Completed 02/20/2019, 02/20/2019 DEXA/DXA scan for age 65+ Completed 10/04/2023 Hepatitis B series for 19+ Aged Out N o longer eligible based on patient's age to complete this topic Procedures Procedure Name Priority Date/Time Associated Diagnosis Comments CBC WITH AUTO DIFFERENTIAL STAT 11/19/2024 12:08 PM CDT Hypoxia Pulmonary emphysema, unspecified emphysema type (HC) CBC WITH AUTO DIFFERENTIAL STAT 11/19/2024 12:08 PM CDT Hypoxia Pulmonary emphysema, unspecified emphysema type (HC) COMP METABOLIC PANEL STAT 11/19/2024 12:08 PM CDT Hypoxia XR CHEST 2 VIEWS PA AND LATERAL STAT 11/19/2024 11:05 AM CDT Hypoxia MR HEAD BRAIN WO TOM 11/15/2024 1:58 PM CDT New daily persistent headache CALCIUM Routine 11/08/2024 1:43 PM CDT Age-related osteoporosis without current pathological fracture CREATININE Routine 11/08/2024 1:43 PM CDT Age-related osteoporosis without current pathological fracture VITAMIN D 25 (DEFICIENCY) Routine 11/08/2024 1:43 PM CDT Age-related osteoporosis without current pathological fracture CT CHEST WO Routine 05/21/2024 2:04 PM BOX STRAPPER Pulmonary nodules LIPID PANEL W REFLEX MEASURED LDL Routine 03/05/2024 2:35 PM CDT Hypertension XR DXA BONE DENSITY 2 SITES AXIAL Routine 10/04/2023 1:47 PM CDT Osteoporosis, unspecified osteoporosis type, unspecified pathological fracture presence COLONOSCOPY SCREENING Routine 06/02/2021 9:28 AM BOX STRAPPER Screening for colon cancer XR MAMMO BILAT SCREENING Routine 03/30/2021 10:34 AM CDT Visit for screening mammogram ANTI HCV Routine 02/20/2019 10:24 AM CDT Need for hepatitis C screening test from Last 3 Months or Most Recently Relevant to Health Maintenance Results * (ABNORMAL) CBC WITH AUTO DIFFERENTIAL (11/19/2024 12:08 PM CDT) WHITE BLOOD COUNT 16.0(H) 4.5 - 11.0 thou/cu mm 11/19/2024 2:36 PM T [facility] RED BLOOD COUNT 5.96(H) 4.00 - 5.20 mil/cu mm 11/19/2024 2:36 PM [facility] HEMOGLOBIN 17.9(H) 12.0 - 16.0 g/dL 11/19/2024 2:36 PM [facility] HEMATOCRIT 55.6(H) 33.0 - 51.0 % 11/19/2024 2:36 PM [facility] MCV 93 80 - 100 fL 11/19/2024 2:36 PM [facility] MCH 30.0 26.0 - 34.0 pg 11/19/2024 2:36 PM [facility] MCHC 32.2 32.0 - 36.0 g/dL 11/19/2024 2:36 PM [facility] RDW 14.7 11.5 - 15.5 % 11/19/2024 2:36 PM [facility] PLATELET COUNT 205 140 - 440 thou/cu mm 11/19/2024 2:36 PM [facility] MPV 10.1 6.5 - 11.0 fL 11/19/2024 2:36 PM [facility] % NEUT 66.1 % 11/19/2024 2:36 PM [facility] % LYMPH 24.2 % 11/19/2024 2:36 PM [facility] % MONO 8.1 % 11/19/2024 2:36 PM [facility] % EOS 1.3 % 11/19/2024 2:36 PM [facility] % BASO 0.3 % 11/19/2024 2:36 PM [facility] ABSOLUTE NEUTROPHILS 10.6(H) 1.7 - 7.0 thou/cu mm 11/19/2024 2:36 PM [facility] ABSOLUTE LYMPHOCYTES 3.9(H) 0.9 - 2.9 thou/cu mm 11/19/2024 2:36 PM [facility] ABSOLUTE MONOCYTES 1.3(H) <0.9 thou/cu mm 11/19/2024 2:36 PM [facility] ABSOLUTE EOSINOPHILS 0.2 <0.5 thou/cu mm 11/19/2024 2:36 PM [facility] ABSOLUTE BASOPHILS 0.1 <0.3 thou/cu mm 11/19/2024 2:36 PM [facility] Blood BLOOD SPECIMEN / Unknown [facility] / Unknown 11/19/2024 12:08 PM CDT 11/19/2024 12:13 PM T us Melissa Ramos MD HEMATOLOGY Final Resul t [facility] [address] [facility] [place] [address] * (ABNORMAL) STAT Comp Metabolic Panel CMP (11/19/2024 12:08 PM T) SODIUM 137 136 - 145 mmol/L 11/19/2024 2:57 PM [facility] POTASSIUM 5.3(H) 3.5 - 5.1 mmol/L 11/19/2024 2:57 PM [facility] CHLORIDE 96(L) 98 - 107 mmol/L 11/19/2024 2:57 PM [facility] CO2,TOTAL 36(H) 22 - 29 mmol/L 11/19/2024 2:57 PM [facility] ANION GAP 5 5 - 18 11/19/2024 2:57 PM [facility] GLUCOSE 108(H) 70 - 99 mg/dL 11/19/2024 2:57 PM [facility] CALCIUM 10.4 8.8 - 10.4 mg/dL 11/19/2024 2:57 PM [facility] Comment: Reference ranges for this test were updated on 05/07/2024 to reflect our healthy population more accurately. Reference range changes are not retroactively applied to results, but previous results using the same methodology can be interpreted in the context of the new reference range. BUN 13 8 - 23 mg/dL 11/19/2024 2:57 PM [facility] CREATININE 0.75 0.50 - 0.90 mg/dL 11/19/2024 2:57 PM [facility] BUN/CREAT RATIO 17 10 - 20 2:57 PM [facility] eGFR 88(L) >90 mL/min/1. 73m2 11/19/2024 2:57 PM [facility] Comment:As of 2021, eG FR is calculated by the CKD-EPI creatinine equation without race adjustment. eGFR can be influenced by muscle mass, exercise, and diet. The reported eGFR is an estimation only and is only applicable if the renal function is stable. ALBUMIN 4.2 4.0 - 4.9 g/dL 11/19/2024 2:57 PM CDT [facility] PROTEIN,TOTAL 7.0 6.0 - 8.0 g/dL 11/19/2024 2:57 PM CDT [facility] BILIRUBIN,TOTAL 0.3 0.0 - 1.2 mg/dL 11/19/2024 2:57 PM CDT [facility] ALK PHOSPHATASE 71 35 - 104 IU/L 11/19/2024 2:57 PM CDT [facility] ALT (SGPT) 15 10 - 35 IU/L 11/19/2024 2:57 PM CDT [facility] AST (SGOT) 26 10 - 35 IU/L 11/19/2024 2:57 PM CDT [facility] Blood BLOOD SPECIMEN / Unknown [facility] / Unknown 11/19/2024 12:08 PM CDT 11/19/2024 12:13 PM CDT us Melissa Ramos MD CHEMISTRY Final Resul t [facility] [address] [place] [address] * XR CHEST 2 VIEWS PA AND LATERAL (11/19/2024 11:05 AM CDT) Anatomical Region Laterality Modality CHEST, THORAX, Lung, HEART Compu alea Radiography 11/19/2024 11:3 8 AM CDT Narrative 11/19/2024 11:38 AM CDT For Patients: As a result of the Century Cures Act, medical imaging exams and procedure reports are released immediately into your electronic medical record. You may view this report before your referring provider. If you have questions, please contact your health care provider. Indication: Hypoxia Technique: Chest 2 views Comparison: Chest x-ray 05/15/2024 Findings/Impression: Cardiovascular and mediastinum: Heart size and vasculature are normal in caliber and appearance. Mediastinum is within normal limits. Lungs and pleural spaces: Lungs are clear. No sign of infiltrate or mass. No sign of pleural effusion. No pneumothorax. Bones and soft tissues: Old left 3rd rib fracture posteriorly. Dictated by Sebastian Mcclelland MD @ 11/19/2024 11:38:45 AM (Electronically Signed) Procedure Note Sebastian Mcclelland MD - 11/19/2024 For Patients: As a result of the Cures Act, medical imagingexams and procedure reports are released immediately into your electronicmedical record. You may view this report before your referring provider.If you have questions, please contact your health care provider. Indication: Hypoxia Technique: Chest 2 views Comparison: Chest x-ray 05/15/2024 Findings/Impression: Cardiovascular and mediastinum: Heart size and vasculature are normal incaliber and appearance. Mediastinum is within normal limits. Lungs and pleural spaces: Lungs are clear. No sign of infiltrate ormass. No sign of pleural effusion. No pneumothorax. Bones and soft tissues: Old left 3rd rib fracture posteriorly. Dictated by Sebastian Mcclelland MD @ 11/19/2024 11:38:45 AM (Electronically Signed) us Melissa Ramos MD GENERAL IMAGING Final Resul t * MR HEAD BRAIN WO (11/15/2024 1:58 PM CDT) Anatomical Region Laterality Modality BRAIN, HEAD Magnetic Resonan ce 11/15/2024 2:06 PM CDT Narrative 11/15/2024 2:06 PM CDT For Patients: As a result of the Cures Act, medical imaging exams and procedure reports are released immediately into your electronic medical record. You may view this report before your referring provider. If you have questions, please contact your health care provider. Indication: Headache. Technique: Multiplanar, multisequence MRI of the brain was performed without intravenous contrast. Comparison: None relevant available. Findings: The corpus callosum, pituitary gland clivus appear intact. Mild degenerative change visualized upper cervical spine. There is no restricted diffusion. No intracranial hemorrhage. The ventricles are proportionate to the cerebral sulci. The 4th ventricle appears midline. The basal cisterns appear patent. No abnormal extra-axial fluid collection identified. Mild parenchymal volume loss. Scattered T2 FLAIR hyperintense foci within the subcortical and periventricular white matter, favored to represent chronic ischemic microvascular disease. Small chronic lacunar infarct right cerebellum. There is no intracranial mass, abnormal mass-effect or midline shift identified. Major intracranial vascular flow voids appear grossly intact. Both globes are preserved. Impression: 1. No acute intracranial process. 2. Mild chronic ischemic microvascular disease. 3. Small chronic lacunar infarct right cerebellum. Dictated by Erasmo Fraire MD @ 11/15/2024 2:06:52 PM (Electronically Signed) Procedure Note Erasmo Fraire, DO - 11/15/2024 For Patients: As a result of the Cures Act, medical imagingexams and procedure reports are released immediately into your electronicmedical record. You may view this report before your referring provider.If you have questions, please contact your health care provider. Indication: Headache. Technique: Multiplanar, multisequence MRI of the brain was performed withoutintravenous contrast. Comparison: None relevant available. Findings: The corpus callosum, pituitary gland clivus appear intact. Milddegenerative change visualized upper cervical spine. There is no restricted diffusion. No intracranial hemorrhage. The ventricles are proportionate to the cerebral sulci. The 4th ventricleappears midline. The basal cisterns appear patent. No abnormal extra-axialfluid collection identified. Mild parenchymal volume loss. Scattered T2 FLAIR hyperintense foci withinthe subcortical and periventricular white matter, favored to representchronic ischemic microvascular disease. Small chronic lacunar infarctright cerebellum. There is no intracranial mass, abnormal mass-effect or midline shiftidentified. Major intracranial vascular flow voids appear grossly intact. Both globesare preserved. Impression: 1. No acute intracranial process. 2. Mild chronic ischemic microvascular disease. 3. Small chronic lacunar infarct right cerebellum. Dictated by Erasmo Fraire MD @ 11/15/2024 2:06:52 PM (Electronically Signed) us Melissa Ramos MD MR Final Resul t * VITAMIN D [[id number]] (11/08/2024 1:43 PM CDT) VITAMIN D,25-OH,TOTAL,IA 60 30 - 100 ng/mL [facility] Comment: Vitamin D Status 25-OH Vitamin D: Deficiency: <20 ng/mL Insufficiency: 20 - 29 ng/mL Optimal: > or = 30 ng/mL For 25-OH Vitamin D testing on patients on D2-supplementation and patients for whom quantitation of D2 and D3 fractions is required, the [facility](TM) 25-OH VIT D, (D2,D3), LC/MS/MS is recommended: order code [id number] (patients >2yrs). See Note 1 Note 1 For additional information, please refer to http://education.Qraved/faq/SDO476 (This link is being provided for informational/ educational purposes only.) Blood BLOOD SPECIMEN / Unknown 11/08/2024 1:43 PM CDT 11/08/2024 1:43 PM CDT Melissa Ramos MD SEND OUTS Final Resul t [employer] [facility] [address] [facility] [place] [address], [place] [phone] [facility] [address] [place] [address] * CREATININE [73786.2] (11/08/2024 1:43 PM CDT) CREATININE 0.53 0.50 - 1.05 mg/dL [facility] EGFR 102 > OR = 60 mL/min/1.73 m2 [facility] Blood BLOOD SPECIMEN / Unknown 11/08/2024 1:43 PM CDT 11/08/2024 1:43 PM CDT Melissa Ramos MD CHEMISTRY Final Resul t [employer] [facility] [address] [facility] [place] [address], [place] [phone] [facility] [address] [facility] [place] [address] * CALCIUM [50655.0] (11/08/2024 1:43 PM CDT) CALCIUM 10.3 8.6 - 10.4 mg/dL [facility] Blood BLOOD SPECIMEN / Unknown 11/08/2024 1:43 PM CDT 11/08/2024 1:43 PM CDT us Melissa Ramos MD CHEMISTRY Final Resul t [facility] [address] [place] [address], [facility] [address] [place] [address] * CT CHEST WO (05/21/2024 2:04 PM BOX STRAPPER) Anatomical Region Laterality Modality CHEST, THORAX, HEART Computed To mography 05/21/2024 3:01 PM BOX STRAPPER Narrative 05/21/2024 3:01 PM BOX STRAPPER For Patients: As a result of the Century Cures Act, medical imaging exams and procedure reports are released immediately into your electronic medical record. You may view this report before your referring provider. If you have questions, please contact your health care provider. Indication: Pulmonary nodules Technique: Noncontrast CT chest Please note that all CT scans at this facility use dose modulation, iterative reconstruction, and/or weight-based dosing when appropriate to reduce radiation dose to as low as reasonably achievable. Comparison: Outside study 02/02/2023, 12/10/2022 Findings: The thyroid is mildly heterogeneous, as before. Vascular calcifications are present. Incidental small pericardial recess. No enlarged lymph nodes. Upper abdomen is unremarkable. Interval development of a moderate compression fracture involving the L1 superior endplate. Right apical nodular density is similar to the prior study. Paraseptal emphysema. Multiple small ground-glass nodules are present bilaterally measuring up to 2.1 cm in the left lower lobe. There is a solid micro lobular nodule within the superior segment of the right lower lobe measuring 1.3 cm. An additional solid nodule within the right upper lobe is present measuring 1.2 cm. Solid nodules appear similar to the prior study. Impression: Similar right-sided solid nodules measuring up to 1.2 I 0.3 cm when compared to 12/10/2022. Multifocal ground-glass nodules also appear to be chronic but are better visualized on the current study due to technique. These measure up to 2.1 cm. Follow-up CT in 1 year could be considered for further evaluation. Please note that all CT scans at this facility use dose modulation, iterative reconstruction, and/or weight-based dosing when appropriate to reduce radiation dose to as low as reasonably achievable. Dictated by Greyson Garcia MD @ 05/21/2024 3:01:00 PM (Electronically Signed) Procedure Note Greyson Garcia MD - 05/21/2024 For Patients: As a result of the Cures Act, medical imagingexams and procedure reports are released immediately into your electronicmedical record. You may view this report before your referring provider.If you have questions, please contact your health care provider. Indication: Pulmonary nodules Technique: Noncontrast CT chest Please note that all CT scans at this facility use dose modulation,iterative reconstruction, and/or weight-based dosing when appropriate toreduce radiation dose to as low as reasonably achievable. Comparison: Outside study 02/02/2023, 12/10/2022 Findings: The thyroid is mildly heterogeneous, as before. Vascular calcificationsare present. Incidental small pericardial recess. No enlarged lymph nodes.Upper abdomen is unremarkable. Interval development of a moderatecompression fracture involving the L1 superior endplate. Right apical nodular density is similar to the prior study. Paraseptalemphysema. Multiple small ground-glass nodules are present bilaterallymeasuring up to 2.1 cm in the left lower lobe. There is a solid microlobular nodule within the superior segment of the right lower lobemeasuring 1.3 cm. An additional solid nodule within the right upper lobeis present measuring 1.2 cm. Solid nodules appear similar to the priorstudy. Impression: Similar right-sided solid nodules measuring up to 1.2 I 0.3 cm whencompared to 12/10/2022. Multifocal ground-glass nodules also appear to be chronic but are bettervisualized on the current study due to technique. These measure up to 2.1cm. Follow-up CT in 1 year could be considered for further evaluation. Please note that all CT scans at this facility use dose modulation,iterative reconstruction, and/or weight-based dosing when appropriate toreduce radiation dose to as low as reasonably achievable. Dictated by Greyson Garcia MD @ 05/21/2024 3:01:00 PM (Electronically Signed) us Melissa Ramos MD CT Final Resul t * (ABNORMAL) LIPID PANEL W REFLEX MEASURED LDL (03/05/2024 2:35 PM CDT) CHOLESTEROL,TOTAL 206(H) 100 - 199 mg/dL 03/05/2024 11:32 PM CDT [facility] Comment: Cholesterol, Total Reference Ranges Desirable <200 mg/dL Borderline 200-239 mg/dL High >=240 mg/dL TRIGLYCERIDES 114 <150 mg/dL 03/05/2024 11:32 PM CDT [facility] HDL CHOLESTEROL 64 >40 mg/dL 11:32 PM CDT [facility] NON-HDL CHOLESTEROL 142 <145 mg/dl 03/05/2024 11:32 PM CDT [facility] CHOL/HDL RATIO 3.22 <4.50 03/05/2024 11:32 PM CDT [facility] LDL CHOLESTEROL 119 <=130 mg/dL 03/05/2024 11:32 PM CDT [facility] VLDL CHOLESTEROL 23 <=30 mg/dL 03/05/2024 11:32 PM CDT [facility] PROVIDER ORDERED STATUS RANDOM 03/05/2024 11:32 PM CDT [facility] Blood BLOOD SPECIMEN / Unknown Venipuncture / Unknown 03/05/2024 2:35 PM CDT 03/05/2024 2:37 PM CDT us Melissa Ramos MD CHEMISTRY Final Resul t [facility] [address] [place] [address], * (ABNORMAL) XR DXA BONE DENSITY 2 SITES AXIAL (10/04/2023 1:47 PM CDT) Anatomical Region Laterality Modality Spine, HIPS, HIPL, HIPR Other Impressions 10/06/2023 2:52 PM CDT Osteoporosis. Continue with current medications, no comparison available for review. RECOMMENDATIONS: The National Osteoporosis Foundation recommends pharmacologic treatment for patients with T-scores of -2.5 or less, patients with prior history of fragility fractures, or patients with 10-year probability of greater than 3% at hips or greater than 20% of suffering major osteoporotic fractures. Recommend continued optimization of calcium and vitamin D intake through dietary means and/or supplementation and regular exercise. Continue current Raloxifene (Evista) medication treatment. Consider alternative medication if decline from previous bone density scan. Alie Sims PA-C [facility] 10/06/2023 Narrative 10/06/2023 2:52 PM CDT For Patients: Results are automatically released to your [facility] ([employer]) account once available, in compliance with federal regulations. This means that you may see your results before your provider has had a chance to review them. Please allow 2-3 business days for your provider to comment on the results. XR DXA Bone Mineral Density (BMD) EXAM LOCATION: [address] [address] PATIENT NAME: Cornelia Chu DATE OF : 1960 EXAM DATE: 10/04/2023 REQUESTING PROVIDER: Melissa Ramos MD GENDER AT : female HEIGHT: 5' 4 (06/15/2023) WEIGHT: 127 lb 9.6 oz (09/13/2023) MENOPAUSAL STATUS: Postmenopausal RACE/ETHNICITY: White RISK FACTORS: Alcohol > 3 drinks/day (prior), Height Loss (2 inches or more), Smoking (prior), Weight < 127 lbs., and White Race CURRENT MEDICATION FOR BONE LOSS: Raloxifene (Evista) INDICATION: Follow-up of existing osteoporosis COMPARISON DATE(S): None DXA scans are compared to prior studies for a patient only when the two (or more) studies were performed on the same scanner. It is not possible to compare data generated on one scanner to data from another because there are not standards in DXA equipment. This applies even if the two scanners are made by the same composite technician. PROCEDURE: Dual-energy x-ray absorptiometry performed with routine technique. Reporting is completed in the form of a T-score. The T-score represents the standard deviation from peak bone mass based on young healthy adult. A Z-score is used for diagnosis in premenopausal women, and for men under the age of 50. FINDINGS: RESULT LUMBAR SPINE L1-L3(L4) BMD: 0.737 g/cm2 T-Score: - 3.6 Z-Score: - 1.7 Change from prior: None RESULTS FEMUR Left femoral neck BMD: 0.611 g/cm2 T-Score: - 3.1 Z-Score: - 1.4 Change from prior: None Right femoral neck BMD: 0.743 g/cm2 T-Score: - 2.1 Z-Score: - 0.4 Change from prior: None Left hip BMD: 0.525 g/cm2 T-Score: - 3.8 Z-Score: - 2.4 Change from prior: None Right hip BMD: 0.604 g/cm2 T-Score: - 3.2 Z-Score: - 1.8 Change from prior: None WHO criteria: Normal: T-score at or above -1 SD Osteopenia: T-score between -1.1 and -2.4 SD Osteoporosis: T-score at or below -2.5 SD us Melissa Ramos MD DEXA Final Resul t * COLONOSCOPY (06/02/2021 9:36 AM BOX STRAPPER) 06/02/2021 9:36 AM BOX STRAPPER Narrative Transcriptions Charlie Beard MD - 06/02/2021 10:33 AM CST Patient Name: Cornelia Chu Procedure Date: 06/02/2021 Gender: Female Date of : 1960 Admit Type: Outpatient Procedure: Colonoscopy Proceduralist: Charlie Beard MD , Kae Dodson, RN(Nurse) Referring MD: Melissa Ramos Indications/Pre-Op Diagnosis: Screening for colorectal malignant neoplasm, Last colonoscopy: July 2007 Medications: Fentanyl 250 micrograms IV, Midazolam 3 mgIV, The level of sedation administered wasmoderate Procedure Description: The patient had risks, benefits and alternatives explained to andgave informed consent. The patient had a stable cardiopulmonary status and judged an adequate candidate for conscious sedation. The colonoscope was passed through the anus and advanced to thececum, identified by appendiceal orifice and ileocecal valve. Thecolonoscopy was performed without difficulty. The patient tolerated the procedure well. The quality of the bowel preparation was good. The ileocecal valve, appendiceal orifice, and rectum were photographed. Complications: No immediate complications. Estimated Blood Loss & Specimen: Estimated blood loss: none. Specimen collected - Yes and sent to Laboratory Findings: The perianal and digital rectal examinations were normal. Multiple small and large-mouthed diverticula were found in thesigmoid colon. There was narrowing of the colon in association with the diverticular opening. There was evidence of diverticular spasm. A 7 mm polyp was found in the distal sigmoid colon at 15 cm. Thepolyp was pedunculated. The polyp was removed with a hot snare. Resectionand retrieval were complete. The exam was otherwise without abnormality on direct and retroflexion views. Impressions/Post-Op Diagnosis: - Severe diverticulosis in the sigmoid colon. There was narrowing ofthe colon in association with the diverticular opening. There wasevidence of diverticular spasm. - One 7 mm polyp in the distal sigmoid colon, removed with a hotsnare. Resected and retrieved. - The examination was otherwise normal on direct and retroflexionviews. Recommendation: - Patient has a contact number available for emergencies. The signsand symptoms of potential delayed complications were discussed with the patient. Return to normal activities tomorrow. Written discharge instructions were provided to the patient. - Resume previous diet. - Continue present medications. - Await pathology results. - Repeat colonoscopy for surveillance based on pathology results. - Patient's sedation for a repeat study will require Anesthesia staff assistance. Moderate Sedation: Moderate (conscious) sedation was administered by the endoscopy nurse and supervised by the endoscopist. The following parameters were monitored: oxygen saturation, heart rate, respiratory rate, blood pressure, adequacy of pulmonary ventilation and reponse to care. Please refer to the patient's medical record flowsheets and nursing notes for moderate sedation details. Total physician intraservice time was 31 minutes. Charlie Beard MD 06/02/2021 10:33:04 AM This report has been signed electronically. Note Initiated On: 06/02/2021 9:36 AM Procedure Code(s): --- Professional --- 30224, Colonoscopy, flexible; with removalof tumor(s), polyp(s), or other lesion(s) bysnare technique Diagnosis Code(s): --- Professional --- Z12.11, Encounter for screening formalignant neoplasm of colon K63.5, Polyp of colon K57.30, Diverticulosis of large intestine without perforation or abscess withoutbleeding CPT copyright 2020 [employer]. All rights reserved. The codes documented in this report are preliminary and upon roll off driver reviewmay be revised to meet current compliance requirements. Scope In: 9:57:47 AM Scope Withdrawal Time 0 hours 16 minutes 2 seconds Scope Out: 10:27:09 AM us Charlie Beard MD PROCEDURE ORD Final Res ult * XR MAMMO BILAT SCREENING (03/30/2021 10:34 AM CDT) Anatomical Region Laterality Modality BREASTS, Breast Left, Breast Right Bilateral Mammography Impressions 03/30/2021 3:32 PM CDT There is no radiographic evidence for malignancy. Recommend annual mammograms. MAMMOGRAM ASSESSMENT: ACR 1 Negative PATIENTS: You will also receive a letter with your examination results in an easy to read format. If you have questions about your results, please contact your referring provider. Narrative 03/30/2021 3:32 PM CDT For Patients: As a result of the Century Cures Act, medical imaging exams and procedure reports are released immediately into your electronic medical record. You may view this report before your referring provider. If you have questions, please contact your health care provider. XR MAMMO BILAT SCREENING [[id number]] CLINICAL HISTORY: This is an asymptomatic 61 y.o. patient. INDICATION FOR EXAM: Mammogram Screening. TECHNIQUE: CC & MLO views were obtained. This study was evaluated with the assistance of Computer-Aided Detection. COMPARISON FILM: This is a baseline study. FINDINGS: The breasts have scattered areas of fibroglandular density. There are no dominant masses, suspicious micro calcifications or areas of architectural distortion. us Melissa Ramos MD MAMMO Final Resul t * (ABNORMAL) ANTI HCV (02/20/2019 10:24 AM CDT) HEPATITIS C ANTIBODY Reactive, Preliminary Positive(A) Non-React raymond 02/21/2019 7:51 AM CDT [facility] Comment:Presumptive evidence of antibodies to HCV. Reflexed to HCV RNA Quant (See separate report). Blood BLOOD SPECIMEN / Unknown Butterfly / Unknown 02/20/2019 10:24 AM CDT 02/20/2019 10:24 AM CDT us Preeti MCCANN SEND OUTS Final Resu lt [email or web address] [address] [place] [address], [place] from Last 3 Months or Most Recently Relevant to Health Maintenance Insurance MEDICAID MEDICARE [place] ONLY MEDICARE PART A [place] ONLY MEDICARE PART B [place] ONLY Advance Directives * Full Code (Latest Code Status on File) Date Activated Date Inactivated Comments 02/09/2023 6:28 PM 02/14/2023 7:31 PM Question Answer Comments Code Status Discussion: Reviewed Preferences Care Teams Management Manager Relationship Specialty Start Date End Date Melissa Ramos MD [address] [facility] [place] [address] PCP - General Family Practice 08/10/16
--- OUTSIDE RECORDS SUMMARY | 2025-01-07 16:53 | XMS_ITS | CCD ---
Author Organization Unknown Care Team Providers Care Drawbench Operator Helper Name Role Phone Cascade Operator, [place] Primary Care Provider Unava ilable Unavailable Chronic Care Management Unavaila ble Summary Purpose DataExchange Insurance Providers Payer name Policy type / Coverage type Covered democrat ID Effective Begin Date Effective End Date [facility] Commercial Insurance [id number] Unkn own Family History Family History data not found Medication Administered No Medication Administered data Reason For Visit No Reason For Visit data
--- NOTE | 2025-01-07 17:12 | CRLHL7_ITS ---
For Patients: As a result of the Cures Act, medical imaging exams and procedure reports are released immediately into your electronic medical record. You may view this report before your referring provider. If you have questions, please contact your health care provider. Indication: SOB, COPD Technique: PA and lateral views of the chest. Comparison: 02/02/2023. Findings: Mildly enlarged cardiomediastinal silhouette. Mild patchy right upper lobe airspace opacities. No pleural effusion or visualized pneumothorax Chronic healed left-sided rib fractures. Moderate degenerative changes of the visualized spine. Impression: Mild patchy right upper lobe airspace opacities may represent atypical infection or inflammation. Dictated by Mason Hunter MD @ 01/07/2025 5:59:04 PM (Electronically Signed)
--- NOTE | 2025-01-07 17:13 | ED.SOB ---
HPI - SOB/Dyspnea General Chief Complaint: Shortness of Breath/Dyspnea Stated Complaint: Oxygen low, Dr. Ramos referred her Time Seen by Provider: 01/07/25 16:04 History of Present Illness HPI Narrative: This 64-year-old female was at a clinic appointment today and was sent here for further evaluation. She has COPD and continues to smoke. She arrived at clinic with oximetry at around 88% on room air. The patient's provider has told me that she attempted to order home oxygen on 2 different occasions any this is yet to be completed. The patient also has history of congestive heart failure and reported that she had a 6 or 7 lb weight gain. She has been taking a diuretic and now has come down a couple lb. There is no report of fever or cough. Related Data Home Medications ?Medication ?Instructions ?Recorded ?Confirmed acetaminophen 500 mg tablet 1,000 mg PO TID PRN 02/02/23 01/07/25 albuterol sulfate 90 mcg/actuation 1 - 2 puff inhalation Q4H PRN 02/02/23 01/07/25 aerosol inhaler wheezing furosemide 20 mg tablet 20 mg PO QAM 02/02/23 01/07/25 gabapentin 300 mg capsule 300 mg PO BID 02/02/23 01/07/25 [id number] 8 mg-folic 400 1 tab PO DAILY 02/02/23 01/07/25 mcg-K 50 mcg-lutein 300 mcg tablet (Centrum Silver Women) oxycodone 10 mg tablet 10 mg PO 3XD chronic pain 01/07/25 01/07/25 Previous Rx's ?Medication ?Instructions ?Recorded apixaban 5 mg tablet (Eliquis) 5 mg PO BID #60 tabs 02/05/23 metoprolol succinate 50 mg 50 mg PO DAILY #30 tabs 02/05/23 tablet,extended release 24 hr nicotine 14 mg/24 hr daily 1 patch transdermal Q24H #28 ea 02/05/23 transdermal patch Allergies Allergy/AdvReac Type Severity Reaction Status Date / Time Penicillins AdvReac Unknown Hallucinati Verified 01/07/25 15:57 ng Review of Systems Status of ROS: Reports: 10 or more systems reviewed and unremarkable except as noted in History and below Narrative: Constitutional: No fevers, no weight gain or loss. Eyes: No discharge. No vision changes. HENT: No congestion, no sore throat, no ear pain. Cardiovascular: No chest pain, no palpitations. Respiratory: COPD with shortness of breath. She continues to smoke. Gastrointestinal: No abdominal pain, no vomiting, no diarrhea. Genitourinary: No dysuria, no hematuria. Musculoskeletal: Normal range of motion. Skin: No rashes, no pruritis. Neurological: No dizziness, weakness, sensory change, speech change. Endo/Heme/Allergies: No bruising or bleeding. No polydipsia. Pysch: no suicidality, no anxiety, no insomnia. All other systems reviewed and are negative. [facility] Medical History (Updated 01/07/25 @ 19:39 by Quinten Mayer MD) Acute on chronic heart failure ?I50.9 - Heart failure, unspecified (ICD-10) Erythrocytosis ?D75.1 - Secondary polycythemia (ICD-10) Atrial fibrillation ?I48.91 - Unspecified atrial fibrillation (ICD-10) Multiple pulmonary nodules ?R91.8 - Other nonspecific abnormal finding of lung field (ICD-10) Colon polyp ?K63.5 - Polyp of colon (ICD-10) Chronic bronchitis with COPD (chronic obstructive pulmonary disease) ?J44.9 - Chronic obstructive pulmonary disease, unspecified (ICD-10) Diverticulosis of colon ?K57.30 - Diverticulosis of large intestine without perforation or abscess without bleeding (ICD-10) Severe osteopetrosis ?Q78.2 - Osteopetrosis (ICD-10) Hyponatremia ?E87.1 - Hypo-osmolality and hyponatremia (ICD-10) Spinal stenosis of lumbar region with neurogenic claudication ?M48.062 - Spinal stenosis, lumbar region with neurogenic claudication (ICD-10) Cigarette smoker ?F17.210 - Nicotine dependence, cigarettes, uncomplicated (ICD-10) Alcohol use disorder ?F10.90 - Alcohol use, unspecified, uncomplicated (ICD-10) Hypertension ?I10 - Essential (primary) hypertension (ICD-10) Surgical History (Updated 02/02/23 @ 17:46 by Eliseo Villareal MD) History of loop electrosurgical excision procedure (LEEP) of cervix ?Z98.890 - Other specified postprocedural states (ICD-10) Status post colonoscopy with polypectomy ?Z98.890 - Other specified postprocedural states (ICD-10) Family History (Updated 02/02/23 @ 17:51 by Eliseo Villareal MD) Other CHF (congestive heart failure) Coronary artery disease Social History (Updated 02/02/23 @ 17:53 by Eliseo Villareal MD) Narrative: Lives alone. . Has social security disability related to her back. Designates her daughter, Jermaine Chu, cell phone number [phone], as her power of workers compensation defense attorney for health should that be required. Requests DNR DNI resuscitation status. What is your current living situation?: I presently have a place to live Problems where you live: pests, such as bugs, ants, or mice and mold Problems where you live details: mold/pests (building old) In the past 12 months, utilities in danger of being shut off: no In past 12 months, lack of transportation kept you from medical appts, meetings, work, or getting things needed for daily living: no In the past 12 mos, have been you worried that your food would run out before you had money to buy more?: never true In the past 12 mos, the food you bought just didn't last and you didn't have money to buy more?: never true Highest level of school completed/degree received: high school graduate Smoking Status: Current every day smoker What tobacco products do you use: cigarettes Smoking packs per day: 0.5 Smoking cigarettes per day: 10.0 Do you use any of these nicotine containing products: None Second hand tobacco smoke exposure: No How often do you have a drink containing alcohol: 4 or more times a week Alcohol type: beer How many standard drinks containing alcohol do you have on a typical day: 3 or 4 How often do you have six or more drinks on one occasion: Never AUDIT-C Alcohol total score: 5 Non-prescribed substance use: marijuana (any form) Non-prescribed substance use details: I smoke it as often as possible Caffeine: Yes How often does anyone, including family, friends and others, physically hurt you: never How often does anyone, including family, friends and others, insult or talk down to you: never How often does anyone, including family, friends and others, threaten you with harm: never How often does anyone, including family, friends and others, scream or curse at you: never service: No Health Related Social Needs: Inadequate housing (Z59.1) Exam Narrative: Exam Narrative: Constitutional: Well-developed, well-nourished, no acute distress. HEENT: Normocephalic, atraumatic. Neck: Normal range of motion. Nontender. Supple. Heart: Regular. No murmurs. Normal rate. Intact distal pulses. Lungs: Clear to auscultation. No chest discomfort. No wheezes, rhonchi, or rales. Abdomen: Normal bowel sounds. Nontender. No rebound tenderness. Genitalia: Deferred. Back: No midline tenderness. Normal range of motion. Extremities: Normal range of motion. No injury. Mild peripheral edema. Skin: Intact. No rash. Warm. No erythema or pallor. Neurologic: No altered sensation. No weakness. Alert and oriented. Psychiatric: No suicidality. No anxiety or depression. No insomnia. Nursing notes and vitals signs are reviewed. Const: Vital Signs, click to edit/add: Vital Signs - 24 hr 01/07/25 15:53 01/07/25 16:11 01/07/25 17:00 Temperature 98.8 F Pulse Rate 94 Pulse Rate [Right Pulse Oximeter] 82 Respiratory Rate 18 Blood Pressure Blood Pressure [Ri ght Upper Arm] 136/79 Pulse Oximetry 88 94 93 Oxygen Delivery Me thod Room Air Nasal Cannula Nasal Cannula Oxygen Flow Rate 2 2 01/07/25 17:30 01/07/25 18:11 01/07/25 18:15 Temperature Pulse Rate 72 81 84 Pulse Rate [Right Pulse Oximeter] Respiratory Rate Blood Pressure 134/80 Blood Pressure [Ri ght Upper Arm] Pulse Oximetry 94 78 L 92 Oxygen Delivery Me thod Nasal Cannula Room Air Nasal Cannula Oxygen Flow Rate 2 2 Course Vital Signs Vital signs: Initial Vital Signs Temperature 98.8 F 01/07/25 15:53 Temperature Source Temporal Artery Scan 01/07/25 15:53 Pulse Rate 82 01/07/25 15:53 Pulse Rhythm Regular 01/07/25 15:53 Pulse Strength 3+ Normal 01/07/25 15:53 Respiratory Rate 18 01/07/25 15:53 Blood Pressure 136/79 01/07/25 15:53 Blood Pressure Mean 98 01/07/25 15:53 Blood Pressure Position Sitting 01/07/25 15:53 Pulse Oximetry 88 01/07/25 15:53 Oxygen Delivery Method Room Air 01/07/25 15:53 Vital Signs Temperature 98.8 F 01/07/25 15:53 Pulse Rate 82 01/07/25 15:53 Respiratory Rate 18 01/07/25 15:53 Blood Pressure 136/79 01/07/25 15:53 Pulse Oximetry 88 01/07/25 15:53 Oxygen Delivery Method Room Air 01/07/25 15:53 Temperature 98.8 F 01/07/25 15:53 Pulse Rate 84 01/07/25 18:15 Respiratory Rate 18 01/07/25 15:53 Blood Pressure 134/80 01/07/25 18:11 Pulse Oximetry 92 01/07/25 18:15 Oxygen Delivery Method Nasal Cannula 01/07/25 18:15 Oxygen Flow Rate 2 01/07/25 18:15 Medications Administered Medications: Discontinued Medications Generic Name Dose Route Start Last Admin Trade Name Brysonq PRN Reason Stop Dose Admin Dexamethasone 10 mg 01/07/25 17:15 01/07/25 17:19 Dexamethasone 10 Mg/Ml Pf PO 01/07/25 17:16 10 mg ONCE ONE Administration MDM - SOB/Dyspnea MDM Narrative Medical decision making narrative: This 64-year-old female has a 42 year history of smoking and has COPD and CHF. She arrives with oximetry at around 88% on room air. She improved to 92% on room air with 2 L of nasal cannula oxygen. The patient has had home oxygen ordered on 2 previous occasions and she tells me that she did not use it so she sent it back. She also states that she currently has a nebulizer but despite being shown how to use it she said she did not bother cut she was not sure if she remembered how to use it. She does remember to continue to smoke however and today her chest x-ray shows no acute findings. Lab results also are not revealing any new conditions. Her BNP is elevated at around 8000. She does have mild pedal edema bilaterally and is currently taking Lasix. The patient did receive an oral dose of dexamethasone 10 mg here. She had oxygen removed and desaturated down to 78% temporarily. I did recommend hospitalization and strongly encouraged that she stop smoking as these chronic conditions will not improve with our best treatments if she continues to smoke. She is agreeable to come into the hospital. I did speak with the hospitalist on-call, Dr. Ziegler, who will arrange for an observation admission and home oxygen when discharged. Lab Data Labs: Lab Results 01/07/25 01/07/25 Range/Units 17:12 17:20 WBC 10.52 (4.50-11.00) K/uL RBC 5.90 H (4.00-5.20) m/uL Hgb 17.5 H (12.0-16.0) gm/dL Hct 56.3 H (33.0-51.0) % MCV 95 (80-100) fL MCH 30 (26-34) pg MCHC 31 L (32-36) gm/dL RDW Coeff of Jonel 15.7 H (11.5-15.5) % Plt Count 177 (140-440) K/uL Neut % (Auto) 67.4 (42.0-72.0) % Lymph % (Auto) 19.2 L (20-44) % [place] % (Auto) 11.0 (0.0-11.0) % Eos % (Auto) 1.7 (0.0-7.0) % Baso % (Auto) 0.5 (0.0-3.0) % Neut # (Auto) 7.09 H (1.7-7.0) K/uL Lymph # (Auto) 2.00 (0.90-2.90) K/uL [place] # (Auto) 1.20 H (0.00-0.90) K/UL Eos # (Auto) 0.18 (0.00-0.50) K/uL Baso # (Auto) 0.05 (0.00-0.30) K/uL Abs Immat Gran (auto) 0.02 (0.00-0.30) K/uL Imm/Tot Granulo (auto) 0.2 % Sodium 136 (135-149) mmol/L Potassium 4.5 (3.6-5.1) mmol/L Chloride 93 L (96-114) mmol/L Carbon Dioxide 41 H* (20-32) mmol/L Anion Gap 2 L (7-15) mEq/L BUN 14 (7-30) mg/dL Creatinine 0.7 (0.5-1.5) mg/dL Estimated Creat Clear 43.77 Estimated GFR 95 ml/min Glucose 71 (60-115) mg/dL Calcium 9.3 (8.4-10.6) mg/dL NT-Pro-B Natriuret Pep 8630 H (See Note) pg/mL POC Troponin I 0.03 (0.01-0.04) ng/ml Imaging Data Chest x-ray: Radiologist's impression: Mild patchy right upper lobe airspace opacities may represent atypical infection or inflammation. ECG Data Attestation: I personally reviewed and interpreted this ECG as follows: Interpretation: Normal sinus rhythm, rate 83 beats per minute. Incomplete right bundle branch block. T-wave inversion in the precordial leads V1 through V4. Discharge Plan Discharge Clinical Impression: COPD exacerbation, Congestive heart failure Patient Disposition: Admitted As Observation Condition: Unchanged
[2025-01-07] MEDS: DEXAMETHASONE 10 MG/ML PF PO (17:19)
[2025-01-07 17:37] LABS: Troponin, Point-of-Care* 0.03 ng/ml (0.01-0.04)
[2025-01-07 17:49] LABS: Hematocrit 56.3 % (33.0-51.0); Hemoglobin* 17.5 gm/dL (12.0-16.0); Immature Granulocytes Abs Auto 0.02 K/uL (0.00-0.30); Immature Granulocytes Pct Auto 0.2 %; Mean Corpuscular HGB Conc 31 gm/dL (32-36); Mean Corpuscular Hemoglobin 30 pg (26-34); Mean Corpuscular Volume 95 fL (80-100); RDW Coefficient of Variation % 15.7 % (11.5-15.5); Red Blood Count 5.90 m/uL (4.00-5.20); White Blood Count* 10.52 K/uL (4.50-11.00)
--- OUTSIDE RECORDS SUMMARY | 2025-01-07 17:57 | XMS_ITS | CCD ---
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
[2025-01-07 17:58] LABS: Lymphocytes Absolute Auto 2.00 K/uL (0.90-2.90); Slide Review Reflex No
--- OUTSIDE RECORDS SUMMARY | 2025-01-07 17:58 | XMS_ITS | CCD ---
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
[2025-01-07 18:17] LABS: Chloride* 93 mmol/L (96-114); Potassium* 4.5 mmol/L (3.6-5.1); Sodium* 136 mmol/L (135-149)
[2025-01-07 18:20] LABS: Blood Urea Nitrogen* 14 mg/dL (7-30); Creatinine* 0.7 mg/dL (0.5-1.5); Est. Creatinine Clearance* 43.77; Estimated Glomerular Filt Rate 95 ml/min
[2025-01-07 18:21] LABS: Calcium* 9.3 mg/dL (8.4-10.6); Glucose* 71 mg/dL (60-115)
[2025-01-07 18:40] LABS: Anion Gap 2 mEq/L (7-15); Carbon Dioxide* 41 mmol/L (20-32); NT Pro B Type NatriureticPept* 8630 pg/mL (See Note)
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
[2025-01-07 21:44] LABS: HCO3 VBG 36 mmol/L (21-28); PCO2 VBG 59 mmHG (40-50); PO2 VBG 72.9 mmHG (25-47); pH VBG 7.389 (7.32-7.43)
--- NOTE | 2025-01-07 21:49 | CRLHL7_ITS ---
For Patients: As a result of the Century Cures Act, medical imaging exams and procedure reports are released immediately into your electronic medical record. You may view this report before your referring provider. If you have questions, please contact your health care provider. INDICATION: Visual disturbances x 5 days. COMPARISON: None available. TECHNIQUE: CT of the head without IV contrast. Coronal and sagittal reconstructions. FINDINGS: Brain: Exam limited by motion artifact. No intracranial hemorrhage, abnormal extra-axial fluid collection, or evidence of acute infarct. No mass effect or midline shift. Mild generalized cerebral and cerebellar volume loss. Ventricular caliber is within normal limits. Skull base and calvarium: The visualized paranasal sinuses and mastoid air cells are clear. The visualized orbits are grossly unremarkable. No acute fracture identified. Soft tissues: Unremarkable. IMPRESSION: No acute intracranial findings. Please note that all CT scans at this facility use dose modulation, iterative reconstruction, and/or weight-based dosing when appropriate to reduce radiation dose to as low as reasonably achievable. Dictated by Daphnie Camacho MD @ 01/08/2025 12:22:03 AM (Electronically Signed)
--- NOTE | 2025-01-07 21:49 | CRLHL7_ITS ---
For Patients: As a result of the 21st Century Cures Act, medical imaging exams and procedure reports are released immediately into your electronic medical record. You may view this report before your referring provider. If you have questions, please contact your health care provider. INDICATION: Epigastric, RUQ pain, recent BRBPR, on Eliquis. TECHNIQUE: CT of the abdomen and pelvis acquired with 63 cc Isovue 370 IV contrast. Coronal and sagittal reconstructions. COMPARISON: CT of the abdomen and pelvis 02/09/2023. FINDINGS: Lower chest: Linear atelectasis or scarring in the left lung base. Minimal patchy nodular ground-glass opacity in the posterior left lower lobe may be infectious or inflammatory. Mild cardiomegaly. Small pericardial effusion. Liver: Normal in size and attenuation. Focal fatty infiltration adjacent to the falciform ligament. Few subcentimeter hypodense lesions are too small to characterize but likely benign. Gallbladder and bile ducts: Unremarkable. No biliary dilation. Spleen: Unremarkable. Pancreas: Unremarkable. Adrenal glands: Unremarkable. Kidneys, Ureters, and Bladder: Symmetric enhancement. No hydronephrosis or ureteral dilation. No obstructing urinary calculi notified, however the distal ureters are suboptimally visualized due to streak artifact. No bladder wall thickening. Reproductive organs: Unremarkable. GI tract/Peritoneum: No small bowel dilation. There is mild wall thickening of small bowel loops in the left abdomen. Moderate stool burden. Extensive colonic diverticulosis. There is wall thickening of the mid to distal sigmoid colon similar to prior exam. No pericolonic fat stranding. Negative appendix. No intraperitoneal free air or fluid. Vasculature: Abdominal aorta is normal in caliber. Aortoiliac vascular calcifications. Mesenteric arteries appear patent. Lymph nodes: No lymphadenopathy. Abdominal Wall: Small fat containing bilateral inguinal hernias. Bones: Degenerative changes of the spine. Right convex lumbar curve. Chronic mild superior endplate compression fractures of L3 and L4. Moderate L1 superior endplate compression fracture is new since prior exam but appears chronic. Right total hip arthroplasty which causes streak artifact in the pelvis. IMPRESSION: 1. Mild wall thickening of small bowel loops in the left abdomen could represent a nonspecific enteritis. No evidence of bowel obstruction. No sign of active bleeding. 2. Extensive colonic diverticulosis with wall thickening of the mid to distal sigmoid colon similar to prior exam. There is no pericolonic fat stranding. Findings could represent acute diverticulitis, nonspecific colitis, or underlying mass. Correlation with colonoscopy is recommended. 3. Moderate L1 superior endplate compression fracture is new since prior exam but appears chronic. 4. Mild cardiomegaly with small pericardial effusion. Please note that all CT scans at this facility use dose modulation, iterative reconstruction, and/or weight-based dosing when appropriate to reduce radiation dose to as low as reasonably achievable. Dictated by Daphnie Camacho MD @ 01/08/2025 12:41:09 AM (Electronically Signed)
[2025-01-07 22:05] LABS: Albumin* 3.6 g/dL (3.3-5.0)
[2025-01-07 22:08] LABS: Alanine Aminotransferase* 42 U/L (4-35); Alkaline Phosphatase* 63 U/L (40-150); Aspartate Amino Transferase* 37 U/L (12-35); Bilirubin Direct* 0.1 mg/dL (0.0-0.5); Bilirubin Total* 0.3 mg/dL (0.1-1.5); Total Protein* 6.1 g/dL (6.0-8.3)
[2025-01-07 22:55] LABS: PCR FLU A Negative PCR FLU A (Negative); PCR FLU B Negative PCR FLU B (Negative); PCR RSV Negative PCR RSV (Negative); SARS PCR* Negative SARS-CoV-2 (Negative)
[2025-01-07] MEDS: DOXYCYCLINE HYCLATE 100 MG PO (23:58)
[2025-01-07] MEDS: FUROSEMIDE 10 MG/ML inj 40 MG IVP (23:59)
[2025-01-07] MEDS: IPRAT-ALBUT 0.5-2.5 MG/3 ML NEB 1 NEB IH (23:59)
[2025-01-08] VITALS (10 sets, daily range): BP systolic 110–115; BP diastolic 62–75; PULSE 86–109; RESP 16–20; TEMP 36.4–36.6; O2SAT 87–92
[2025-01-08] MEDS: IPRAT-ALBUT 0.5-2.5 MG/3 ML NEB 1 NEB IH ×3 (03:14→20:58)
[2025-01-08 06:26] LABS: HCO3 VBG 38 mmol/L (21-28); PO2 VBG 57.3 mmHG (25-47); pH VBG 7.350 (7.32-7.43)
[2025-01-08 06:31] LABS: Hematocrit 54.0 % (33.0-51.0); Hemoglobin* 17.0 gm/dL (12.0-16.0); Immature Granulocytes Abs Auto 0.06 K/uL (0.00-0.30); Immature Granulocytes Pct Auto 0.9 %; Lymphocytes Absolute Auto 0.70 K/uL (0.90-2.90); Mean Corpuscular HGB Conc 32 gm/dL (32-36); Mean Corpuscular Hemoglobin 30 pg (26-34); Mean Corpuscular Volume 94 fL (80-100); RDW Coefficient of Variation % 15.0 % (11.5-15.5); Red Blood Count 5.76 m/uL (4.00-5.20); White Blood Count* 6.66 K/uL (4.50-11.00)
[2025-01-08 06:34] LABS: PCO2 VBG 69 mmHG (40-50); Slide Review Reflex No
[2025-01-08 06:48] LABS: Chloride* 91 mmol/L (96-114); Sodium* 132 mmol/L (135-149)
[2025-01-08 06:49] LABS: Potassium* 3.8 mmol/L (3.6-5.1)
[2025-01-08 06:52] LABS: Anion Gap 1 mEq/L (7-15); Blood Urea Nitrogen* 15 mg/dL (7-30); Calcium* 8.7 mg/dL (8.4-10.6); Carbon Dioxide* 40 mmol/L (20-32); Creatinine* 0.6 mg/dL (0.5-1.5); Est. Creatinine Clearance* 43.18; Estimated Glomerular Filt Rate 98 ml/min; Glucose* 120 mg/dL (60-115)
--- NOTE | 2025-01-08 07:00 | CRLHL7_ITS ---
For Patients: As a result of the Century Cures Act, medical imaging exams and procedure reports are released immediately into your electronic medical record. You may view this report before your referring provider. If you have questions, please contact your health care provider. INDICATION: Elevated LFTs, right upper quadrant pain COMPARISON: CT 01/07/2025 TECHNIQUE: Lyle-scale and color Doppler ultrasound of the gallbladder and bile ducts FINDINGS: The gallbladder is not fully distended. Wall thickness is normal. No stones or sludge. No pericholecystic edema. Negative Benjamin sign. The extrahepatic bile duct is not dilated and measures 3 millimeters. No filling defects. No right upper quadrant ascites. IMPRESSION: Sonographically normal gallbladder and bile ducts. Dictated by Kassie Sky MD @ 01/08/2025 7:20:56 AM (Electronically Signed)
--- NOTE | 2025-01-08 07:43 | PC.NURSE ---
Pt noted to have brought home supply of Oxycodone with her upon admission though stated she had not taken home supply and did not have any further medications in her possession when asked. Two RNs obtained pt's consent to lock medication up in controlled med drawer of [facility] room. Medication was also counted with three RNs present (pt's primary RN, preceptor RN and fire extinguisher charger) and recorded on pt's belongings form. Day manager laundry updated.
--- NOTE | 2025-01-08 07:59 | PC.NURSE ---
This patient arrived to the floor in the early night from the ED after being referred here by her physician during a routine exam. The physician noted a severe deficiency in oxygenation and a refusal to wear oxygen at home. The patient has been requiring oxygen to stay saturated. Goal of 88-90 set by physician has been difficult to manage. Saturation fluctuates greatly depending on if the patient is sleeping and on how much O2 is administered, with small changes in O2 administration resulting in large shifts of oxygenation. My assessment noted that the patient was having some upper abdominal pain, nausea off and on, and bright blood in her stool three days ago but none since. Later reported strange shapes in her vision to the physician. Several positive responses to at risk living situation. Social work consult put in. They express great difficulties in life. Behavior has been calm and appropriate but also in-line with a possible psychiatric disorder. Depressive or personality. She brought oxycodone from home. Counted and accounted for with preceptor and charge nurse. Currently in locked battery vent plug inserter medication room. Feet were a deep dark purple and red as well as highly edematous upon initial assessment. I raised them over two pillows and in an hour or two their?symptoms? resolved. No edema. Normal coloration. She had been having her legs dangled for maybe 15 minutes when I did my assessment. Currently diuresing. Urinating frequently. Pale yellow urine. Breath sounds have?expiatory?wheezing in all lobes. Left lower is diminished in the back. Front sounds are also all diminished. By time of transfer of care the patient?s blood work came back with an elevated CO2 of 69. Oncoming physician and nurse notified.?
[2025-01-08 08:35] LABS: Fecal Occult Blood* Negative (Negative)
[2025-01-08] MEDS: DOXYCYCLINE HYCLATE 100 MG PO ×2 (09:35→20:58)
[2025-01-08] MEDS: FUROSEMIDE 20 MG TABLET 40 MG PO ×2 (09:35→14:09)
[2025-01-08] MEDS: METOPROLOL SUCCINATE (XL) 50 MG TAB PO (09:35)
[2025-01-08] MEDS: OMEPRAZOLE 20 MG CAPSULE DR PO ×2 (09:35→20:58)
--- NOTE | 2025-01-08 10:22 | RESP.RT ---
Pt seen this AM. Came via clinic to ED yesterday for saturation of 88% on RA. Visited with pt today and [facility]. Pt has been here in the past with oxygen needs. She recently went AMA with the [facility], and returned oxygen equipment on Nov 12 2024. Has has previous HS oximetry and qualification for oxygen at this facility. This AM her CO2 was increased. Pt was on 3L overnight, indicating possible over oxygenation. Weaned to 1L this AM, SPO2 85-93%, very up and down. BBS clear,very diminished. PT is a daily smoker, no indication that she would like to stop. Using a nicotine patch now. PT wants to sleep. Per pt she does not do much activity. She is not short of breath, and reports that she is comfortable on the 1L, and does not want to go any highter. History of this decision is unclear to me. She reports being at [facility] for a hip replacement, and had respiratory/oxygenation concerns. Per Pt, may have been secondary to too much oxycodone and or too much oxygen. At some point per pt a physician told her not to use more than 1L. It is clear to me, from past notes at this facility, and current VBG, she is very sensitive and does not tolerate much oxygen as related to ventilation. Will monitor and provide education to nursing staff for appropriate L flow at this time for this pt. [facility] is willing to take her back as a client if oxygen is ordered.
--- NOTE | 2025-01-08 10:31 | RESP.RT ---
In addition, she was asked to have a sleep study for possible undiagnosed [place]. She has not done this to date.
--- NOTE | 2025-01-08 13:53 | P.IMPN_ITS ---
Assessment and Plan Assessment and plan (1) Acute on chronic respiratory failure with hypoxia and hypercapnia: Problem comment: - Suspect multifactorial: COPD and HF exacerbations. Treat as below and with supplemental oxygen, monitoring carefully and set parameters for this to keep O2 saturation above 88 to try and minimize CO2 retention. Recheck VBG in am. Status: Acute (2) COPD exacerbation: Problem comment: - Got dexamethasone in the ER. Will start prednisone tomorrow morning. and consult RT. Start scheduled duonebs and prn albuterol nebs. Possible atypical pneumonia on CXR, will start BID doxycycline. Status: Acute (3) Tobacco abuse: Problem comment: Pt requests nicotine patch. I ordered the 14 mg one. I recommended quitting smoking permanently. Status: Chronic (4) Acute on chronic heart failure: Problem comment: - HFpEF - LE edema, hypoxia - continue rate control for afib, diurese with Furosemide, update ECHO, last one was done in 2022: - TTE obtained 02/03/23: Final Impressions: 1. Technically limited exam. 2. Normal left ventricular size, borderline wall thickness, normal global systolic function, calculated EF of 59 %. 3. Right ventricular cavity size is moderately enlarged, global systolic RV function is severely reduced. 4. Right ventricular volume and pressure overload. 5. The aortic valve is sclerotic, no stenosis and no regurgitation. 6. The mitral valve is normal, mild mitral regurgitation. 7. Tricuspid valve is non coapting. Severe tricuspid regurgitation. 8. The inferior vena cava is dilated, respiratory size variation less than 50%. Comparison There are no prior studies on this patient for comparison purposes. - await results of transthoracic echocardiogram obtained on 01/08/2025 Status: Acute (5) Atrial fibrillation: Problem comment: continue metoprolol for rate control. Holding Eliquis due to recent GI bleeding. Status: Chronic (6) Rectal bleeding: Problem comment: CT abd/pelvis does not show GI bleeding, but there is concern for enteritis and colonic wall thickening. Colonoscopy recommended. Patient early said she never wants another, but may reconsider with these findings. Hold eliquis for now. Hemoccult stool. Follow Hgb. Status: Acute (7) Chronic anticoagulation: Problem comment: as above Status: Chronic (8) Erythrocytosis: Problem comment: 05/12/2022 hemoglobin 15.9, hematocrit 45.9. White blood cell count 10.7, platelet count 235. 12/10/2022 hemoglobin 19.7, hematocrit 59. White blood cell count 11.1, platelet count 150. 02/02/2023 hemoglobin 20.0, hematocrit 50.7. White blood cell count 12, platelet count 169. 7/02/24 hemoglobin 17/5. WBC 10.5, plt 177. Unsure if further w/u was done as outpatient. Possibly due to chronic hypoxia. Consider obtaining an erythropoietin level in the outpatient setting and appropriate follow-up. Status: Chronic (9) Epigastric pain: Problem comment: LFTs also elevated. Has possible enteritis on CT. Had BRBPR a few days ago. Start omeprazole. Check RUQ US. May also benefit from EGD. Status: Acute (10) Elevated LFTs: Problem comment: - Cause not immediately clear. Patient has h/o EtOH use. AST and ALT are of similar elevation. +RUQ pain. CT abd/pelvis shows possible enteritis. Will also check RUQ US in am. Status: Acute (11) Visual disturbance: Problem comment: - Symptom onset 4-[address] head as above, reassuring. If this were stroke, it is outside the timeframe where acute intervention would be of benefit. Could consider MRI brain tomorrow. Recommend outpatient optometry exam. Status: Acute Plan 1. Reviewed impression, plan, recommendations with patient 2. Answered her questions are satisfaction 3. Change her to inpatient status 4. Patient agreeable with above stated plans and recommendations Total Time Spent Total Time Spent: 45 minutes Subjective Date Seen: 01/08/25 Interval history: Admission history of present illness: ?64 year old female with h/o COPD, CHF, and afib for which she is on Eliquis who saw her PCP today for f/u hypoxia and was sent to the ER for hypoxia. Cornelia has many additional complaints today, but says she would not have come in to the hospital if her PCP hadn't encouraged her to do so because nothing was bothering her that much. ?Hypoxia - known h/o COPD and HF, also on chronic oxycodone 30mg/d. C/o dyspnea for many months. Had previously been prescribed home oxygen, but continues to smoke and never used oxygen, so she had it picked up and prescription for it ran out. Also has nebs at home which she's never used because she didn't remember how to do it. She recently self discontinued many meds, including lasix. Legs more edematous, more dyspneic, so she was started back on lasix last week, but still feels dyspneic. Denies fever, cough, URI symptoms, exposure to someone ill. ?Bilateral leg swelling - chronic, worse since stopping lasix, but restarting it didn't help. ?Bilateral conjunctivitis and visual disturbances - started 4-5 days ago, constant, seeing shapes across vision, especially in the left eye. She describes it as a silent migraine because it is like having an aura for a long time without the headache. Vision is otherwise okay. No double or blurry vision. She says she just saw her eye doctor in October and everything was fine. ?Rectal bleeding - she is on chronic Eliquis for atrial fibrillation. About 4 or 5 days ago she had 3 episodes of bright red blood per rectum with a scant amount of stool mixed in within the time frame of 1 hour. It resolved on its own and she has not had any bright red blood per rectum or melena since. She has never had anything like this before. She denies lightheadedness or dizziness. She says she had a colonoscopy about 2 years ago and that it ruined my nerves. She complains that she can not feel anything in her rectal area now because of the colonoscopy. She says they did not find anything on the colonos copy and she never wants to have another 1. She denies emesis, hematemesis or coffee-ground emesis. ?Epigastric abdominal pain - is unclear when it started, but seems to be more recent in the last few days. It has not affected her appetite. Nothing has made it better or worse. It is associated with the mild amount of bloating in her upper abdomen. She still has her gallbladder and has not had any abdominal surgeries. She denies any fevers or chills.? Hospital day 2, 01/08/2025: Patient indicates her dyspnea has improved. She estimates she feels about 10- 15% improved from yesterday when she 1st came to the hospital. No longer having dyspnea at rest. Continues to note dyspnea with moderate exertion. Denies chest heaviness, pressure, tightness, pain. Denies syncope or near-syncope. Denies nausea or vomiting. Appetite slowly improving. Has been smoking up until she is admitted to the hospital presently. She tells me she wants to quit smoking immediately hereafter. Exam Narrative: Exam Narrative: I examined patient in her hospital room. Appears comfortable at rest. Nasal cannula oxygen delivery at 3 liters/minute with SaO2 of 93% at rest. I decreased the oxygen delivery to 1.5 liters/minute and saturations stabilize around 88 89%. Lungs actually seemingly clear to auscultation with scattered rhonchi only. No wheezing or rales. Heart tones distant but with regular rhythm. Abdomen with active bowel sounds, soft, nontender. Extremities without edema. No focal motor neurologic deficits. Skin is warm, dry, intact. Const: Vital Signs, click to edit/add: Vital Signs - 24 hr 01/07/25 15:53 01/07/25 16:11 01/07/25 17:00 Temperature 98.8 F Pulse Rate 94 Pulse Rate [Pulse Oximeter] Pulse Rate [Right Pulse Oximeter] 82 Respiratory Rate 18 Blood Pressure Blood Pressure [Le ft Arm] Blood Pressure [Ri ght Upper Arm] 136/79 Pulse Oximetry 88 94 93 Oxygen Delivery Me thod Room Air Nasal Cannula Nasal Cannula Oxygen Flow Rate 2 2 01/07/25 17:30 01/07/25 18:11 01/07/25 18:15 Temperature Pulse Rate 72 81 84 Pulse Rate [Pulse Oximeter] Pulse Rate [Right Pulse Oximeter] Respiratory Rate Blood Pressure 134/80 Blood Pressure [Le ft Arm] Blood Pressure [Ri ght Upper Arm] Pulse Oximetry 94 78 L 92 Oxygen Delivery Me thod Nasal Cannula Room Air Nasal Cannula Oxygen Flow Rate 2 2 01/07/25 18:30 01/07/25 18:45 01/07/25 19:00 Temperature Pulse Rate 76 73 74 Pulse Rate [Pulse Oximeter] Pulse Rate [Right Pulse Oximeter] Respiratory Rate Blood Pressure Blood Pressure [Le ft Arm] Blood Pressure [Ri ght Upper Arm] Pulse Oximetry 91 92 92 Oxygen Delivery Me thod Oxygen Flow Rate 01/07/25 19:15 01/07/25 19:30 01/07/25 19:45 Temperature Pulse Rate 84 78 77 Pulse Rate [Pulse Oximeter] Pulse Rate [Right Pulse Oximeter] Respiratory Rate Blood Pressure Blood Pressure [Le ft Arm] Blood Pressure [Ri ght Upper Arm] Pulse Oximetry 90 92 92 Oxygen Delivery Me thod Oxygen Flow Rate 01/07/25 20:00 01/07/25 20:15 01/07/25 21:00 Temperature 98.1 F Pulse Rate 78 78 Pulse Rate [Pulse Oximeter] 75 Pulse Rate [Right Pulse Oximeter] Respiratory Rate 16 Blood Pressure Blood Pressure [Le ft Arm] 139/77 Blood Pressure [Ri ght Upper Arm] Pulse Oximetry 90 91 81 L Oxygen Delivery Me thod Room Air Oxygen Flow Rate 01/07/25 21:13 01/07/25 23:00 01/07/25 23:00 Temperature 98 F Pulse Rate Pulse Rate [Pulse Oximeter] 77 Pulse Rate [Right Pulse Oximeter] Respiratory Rate 16 Blood Pressure Blood Pressure [Le ft Arm] 124/74 Blood Pressure [Ri ght Upper Arm] Pulse Oximetry 91 91 Oxygen Delivery Me thod Nasal Cannula Nasal Cannula Oxygen Flow Rate 1 1 01/08/25 00:27 01/08/25 03:15 01/08/25 07:00 Temperature 97.5 F L Pulse Rate Pulse Rate [Pulse Oximeter] 88 Pulse Rate [Right Pulse Oximeter] Respiratory Rate 18 16 18 Blood Pressure Blood Pressure [Le ft Arm] 111/69 Blood Pressure [Ri ght Upper Arm] Pulse Oximetry 91 88 87 L Oxygen Delivery Me thod Nasal Cannula Nasal Cannula Nasal Cannula Oxygen Flow Rate 1.8 1.8 1 01/08/25 07:00 Temperature 97.5 F L Pulse Rate Pulse Rate [Pulse Oximeter] 109 H Pulse Rate [Right Pulse Oximeter] Respiratory Rate 18 Blood Pressure Blood Pressure [Le ft Arm] 113/62 Blood Pressure [Ri ght Upper Arm] Pulse Oximetry 87 L Oxygen Delivery Me thod Nasal Cannula Oxygen Flow Rate 1 Labs Labs: Laboratory Results - last 24 hr 01/07/25 01/07/25 01/07/25 17:12 17:20 21:42 WBC 10.52 RBC 5.90 H Hgb 17.5 H Hct 56.3 H MCV 95 MCH 30 MCHC 31 L RDW Coeff of Jonel 15.7 H Plt Count 177 Neut % (Auto) 67.4 Lymph % (Auto) 19.2 L [place] % (Auto) 11.0 Eos % (Auto) 1.7 Baso % (Auto) 0.5 Neut # (Auto) 7.09 H Lymph # (Auto) 2.00 [place] # (Auto) 1.20 H Eos # (Auto) 0.18 Baso # (Auto) 0.05 Abs Immat Gran (auto) 0.02 Imm/Tot Granulo (auto) 0.2 VBG pH 7.389 VBG pCO2 59 H VBG pO2 72.9 H VBG HCO3 36 H Sodium 136 Potassium 4.5 Chloride 93 L Carbon Dioxide 41 H* Anion Gap 2 L BUN 14 Creatinine 0.7 Estimated Creat Clear 43.77 Estimated GFR 95 Glucose 71 Calcium 9.3 Total Bilirubin 0.3 Direct Bilirubin 0.1 AST 37 H ALT 42 H Alkaline Phosphatase 63 NT-Pro-B Natriuret Pep 8630 H Total Protein 6.1 Albumin 3.6 Lipase 42 Stool Occult Blood SARS-CoV-2 (PCR) Influenza Type A (PCR) Influenza Type B (PCR) RSV (PCR) Lab Acknowledgement Test Added POC Troponin I 0.03 01/07/25 01/08/25 01/08/25 22:04 06:16 08:21 WBC 6.66 RBC 5.76 H Hgb 17.0 H Hct 54.0 H MCV 94 MCH 30 MCHC 32 RDW Coeff of Jonel 15.0 Plt Count 172 Neut % (Auto) 78.1 H Lymph % (Auto) 10.5 L [place] % (Auto) 9.8 Eos % (Auto) 0.5 Baso % (Auto) 0.2 Neut # (Auto) 5.20 Lymph # (Auto) 0.70 L [place] # (Auto) 0.70 Eos # (Auto) 0.03 Baso # (Auto) 0.01 Abs Immat Gran (auto) 0.06 Imm/Tot Granulo (auto) 0.9 VBG pH 7.350 VBG pCO2 69 H* VBG pO2 57.3 H VBG HCO3 38 H Sodium 132 L Potassium 3.8 Chloride 91 L Carbon Dioxide 40 H Anion Gap 1 L BUN 15 Creatinine 0.6 Estimated Creat Clear 43.18 Estimated GFR 98 Glucose 120 H Calcium 8.7 Total Bilirubin Direct Bilirubin AST ALT Alkaline Phosphatase NT-Pro-B Natriuret Pep Total Protein Albumin Lipase Stool Occult Blood Negative SARS-CoV-2 (PCR) Negative SARS-CoV-2 Influenza Type A (PCR) Negative PCR FLU A Influenza Type B (PCR) Negative PCR FLU B RSV (PCR) Negative PCR RSV Lab Acknowledgement POC Troponin I Imaging Chest x-ray: Attestation: I have reviewed the pertinent imaging results. Radiologist's impression: My interpretation is that patient has an emphysematous lung pattern within a large cardiac silhouette. Mild vascular congestion.
[2025-01-08] MEDS: SODIUM CHLORIDE 0.9 % (FLUSH) 10 ML SYRINGE 5 ML IVF ×2 (14:10→23:13)
--- NOTE | 2025-01-08 19:31 | PC.NURSE ---
End of shift [id number] - Pt alert, oriented. Up with standby assistance and cane, observed throughout shift to ambulate independently in room. Reported generalized pain during shift and cramping in bilateral LE. Medication given per AUG as well as warm blankets and aqua K pad per pt request with verbalized improvement. Pt tolerating O2 via nasal cannula at 1-1.5L per RT with O2 saturations varying from 80-92%, pt noted to recover saturations quickly to MD ordered range. Appears to be resting comfortably at end of shift with call light within reach.
[2025-01-08 20:35] LABS: Potassium* 4.1 mmol/L (3.6-5.1)
[2025-01-08] MEDS: ACETAMINOPHEN 500 MG TABLET 1000 MG PO (22:55)
[2025-01-08] MEDS: MELATONIN 3 MG TABLET PO (22:57)
[2025-01-09] VITALS (8 sets, daily range): BP systolic 108–123; BP diastolic 68–81; PULSE 68–93; RESP 18; TEMP 36.4–36.8; O2SAT 87–91
--- NOTE | 2025-01-09 07:25 | PC.NURSE ---
Arrived to find the patient alert and oriented. When the patient was awake we had them using a nasal canula at 1L. This maintained their oxygenation in the upper 80s. This was no longer sufficient once the patient began to sleep with oxygenation dipping into the 70s. We then repositioned the nasal canula below the mouth at 0.5 L to allow for mouth breathing during sleep. This maintained oxygenation at 91%. Lung sounds show expiatory wheezing. They have also started wet coughing with phlegm production. This is not associated with aspiration. No edema noted in the feet while elevated but quickly swell with ambulation. BRE stockings have been discussed with the patient. Able to walk to the toilet and back safely while stand by assist and using her home cane. Experienced muscle cramping overnight and then calf pain in the morning. Legs appear to be her normal. Red skin over knees and red hued skin on feet and ankles. No swelling when in bed nor strange warmth. Swelling only occurs after ambulation or feet dangling. No major changes overnight. Patient saturating at 91% at 0.5 L at time of transfer of care. ?
[2025-01-09] MEDS: FUROSEMIDE 20 MG TABLET 40 MG PO ×2 (07:57→14:11)
[2025-01-09] MEDS: IPRAT-ALBUT 0.5-2.5 MG/3 ML NEB 1 NEB IH ×2 (09:43→15:57)
[2025-01-09] MEDS: SODIUM CHLORIDE 0.9 % (FLUSH) 10 ML SYRINGE 5 ML IVF ×2 (09:44→21:00)
[2025-01-09] MEDS: DOXYCYCLINE HYCLATE 100 MG PO ×2 (09:44→21:35)
[2025-01-09] MEDS: METOPROLOL SUCCINATE (XL) 50 MG TAB PO (09:44)
--- NOTE | 2025-01-09 09:58 | NUTR.NU ---
RDN with nutrition screen for heart healthy diet and acute on chronic heart failure. Patient admitted with acute on chronic respiratory failure with hypoxia and hypercapnia likely due to COPD and heart failure exacerbation. Per global recruiter, patient consumed 75% at breakfast, 0% at lunch, and 100% at dinner yesterday. Patient reports a good appetite and denies any changes in oral intakes recently. Patient reports receiving Meals on Wheels once daily five days a week. Weight has been fairly stable with current weight 126lbs and admission weight of 128lbs. BMI 23.1 kg/m2. No recent weight history available at this time. Patient reports being familiar with the heart healthy diet as she has had nutrition education previously. Patient declined nutrition education at this time, but was accepting of educational materials. Handouts provided from [facility] on heart failure nutrition therapy, sodium content of foods, heart healthy label reading tips, sodium-free flavoring tips and heart healthy cooking and shopping tips. RDN's contact information was provided and patient was encouraged to call with questions.?
--- NOTE | 2025-01-09 10:05 | PC.SOCIAL ---
Discharge planning/late entry: On 01/08/2025 this worker met with the pt in her room. bench worker hollow handle asked the pt about her apartment because she had mentioned to the nursing staff the night before that she has issues with mold and pests in her apartment. Pt stated that she has a new accountant property now who is actually doing something about the mold issues, so she is not concerned anymore. bench worker hollow handle did inform her about [facility]) as a resource to deal with housing issues if they are not being addressed by the landlord and she declined the contact information for them at this time. Pt stated that if she needs home oxygen at discharge she plans to wear it. Social work to follow-up as needed.
--- NOTE | 2025-01-09 14:08 | P.IMPN_ITS ---
Assessment and Plan Assessment and plan (1) Acute on chronic respiratory failure with hypoxia and hypercapnia: Problem comment: - Suspect multifactorial: COPD and HF exacerbations. Treat as below and with supplemental oxygen, monitoring carefully and set parameters for this to keep O2 saturation around 88% to try and minimize CO2 retention. Recheck VBG in am. Status: Acute (2) COPD exacerbation: Problem comment: - Got dexamethasone in the ER. On prednisone daily since, with goal of 5 days therapy. RT consulted. On scheduled DuoNebs and prn albuterol nebs. Doubt atypical pneumonia, nevertheless on BID doxycycline. Status: Acute (3) Tobacco abuse: Problem comment: Pt requests nicotine patch. On 14 mg patch. I recommended quitting smoking permanently. Status: Chronic (4) Acute on chronic heart failure: Problem comment: - HFpEF - LE edema, hypoxia - continue rate control for afib, diurese with Furosemide, update ECHO, last one was done in 2022: - TTE obtained 02/03/23: Final Impressions: 1. Technically limited exam. 2. Normal left ventricular size, borderline wall thickness, normal global systolic function, calculated EF of 59 %. 3. Right ventricular cavity size is moderately enlarged, global systolic RV function is severely reduced. 4. Right ventricular volume and pressure overload. 5. The aortic valve is sclerotic, no stenosis and no regurgitation. 6. The mitral valve is normal, mild mitral regurgitation. 7. Tricuspid valve is non coapting. Severe tricuspid regurgitation. 8. The inferior vena cava is dilated, respiratory size variation less than 50%. - TTE 01/08/25: Normal LV chamber size, wall thickness, global systolic function, with estimated LVEF 65-75%. Severely enlarged right ventricle with difficult to assess right ventricular function. Mildly enlarged left atrium. Dilated inferior vena cava with respiratory size variation greater than 50%. Estimated right ventricular systolic pressure of 28 mmHg plus right atrial pressure, with mild tricuspid regurgitation and no pulmonary regurgitation. - 01/09/2025: Continue with increase furosemide dose of 40 mg p.o. b.i.d. for now. On admission she was on furosemide 20 mg p.o. q.a.m.. Status: Acute (5) Atrial fibrillation: Problem comment: - continue metoprolol for rate control. Holding Eliquis due to recent GI bleeding. - 01/09/2025: Continue the same for now and consider restarting apixaban at discharge. Status: Chronic (6) Rectal bleeding: Problem comment: CT abd/pelvis does not show GI bleeding, but there is concern for enteritis and colonic wall thickening. Colonoscopy recommended. Patient early said she never wants another, but may reconsider with these findings. Hold eliquis for now. Hemoccult stool. Follow Hgb. Status: Acute (7) Chronic anticoagulation: Problem comment: as above Status: Chronic (8) Erythrocytosis: Problem comment: 05/12/2022 hemoglobin 15.9, hematocrit 45.9. White blood cell count 10.7, platelet count 235. 12/10/2022 hemoglobin 19.7, hematocrit 59. White blood cell count 11.1, platelet count 150. 02/02/2023 hemoglobin 20.0, hematocrit 50.7. White blood cell count 12, platelet count 169. 7/02/24 hemoglobin 17/5. WBC 10.5, plt 177. Unsure if further w/u was done as outpatient. Most likely due to chronic hypoxia. Consider obtaining an erythropoietin level in the outpatient setting if appropriate during follow-up. Status: Chronic (9) Epigastric pain: Problem comment: LFTs also elevated. Has possible enteritis on CT. Had BRBPR a few days ago. Start omeprazole. Check RUQ US. May also benefit from EGD. Status: Acute (10) Elevated LFTs: Problem comment: - Cause not immediately clear. Patient has h/o EtOH use. AST and ALT are of similar elevation. +RUQ pain. CT abd/pelvis shows possible enteritis. Will also check RUQ US in am. Status: Acute (11) Visual disturbance: Problem comment: - Symptom onset 4-[address] head as above, reassuring. If this were stroke, it is outside the timeframe where acute intervention would be of benefit. Could consider MRI brain. Recommend outpatient optometry exam. Status: Acute Plan 1. Anticipate patient may be ready for discharge as early as tomorrow for condition remains stable. 2. I have asked occupational therapy and physical therapy to assess and recommend given her physical limitations associated with her hypoxia. 3. I reviewed my impression with the patient as well as plans and recommendations. 4. She once again expresses hesitation about proceeding with any upper or lower endoscopic assessments. May need to have her further discuss this with her primary care physician. 5. Historically patient has been prescribed oxygen and has not utilized it. She now tells me that she understands she needs it, even if at very low doses given her propensity for hypercapnia if she uses too much oxygen supplementation. 6. Patient agreeable with above stated plans and recommendations. Total Time Spent Total Time Spent: 45 minutes Subjective Date Seen: 01/09/25 Interval history: Admission history of present illness: ?64 year old female with h/o COPD, CHF, and afib for which she is on Eliquis who saw her PCP today for f/u hypoxia and was sent to the ER for hypoxia. Cornelia has many additional complaints today, but says she would not have come in to the hospital if her PCP hadn't encouraged her to do so because nothing was bothering her that much. ?Hypoxia - known h/o COPD and HF, also on chronic oxycodone 30mg/d. C/o dyspnea for many months. Had previously been prescribed home oxygen, but continues to smoke and never used oxygen, so she had it picked up and prescription for it ran out. Also has nebs at home which she's never used because she didn't remember how to do it. She recently self discontinued many meds, including lasix. Legs more edematous, more dyspneic, so she was started back on lasix last week, but still feels dyspneic. Denies fever, cough, URI symptoms, exposure to someone ill. ?Bilateral leg swelling - chronic, worse since stopping lasix, but restarting it didn't help. ?Bilateral conjunctivitis and visual disturbances - started 4-5 days ago, constant, seeing shapes across vision, especially in the left eye. She describes it as a silent migraine because it is like having an aura for a long time without the headache. Vision is otherwise okay. No double or blurry vision. She says she just saw her eye doctor in October and everything was fine. ?Rectal bleeding - she is on chronic Eliquis for atrial fibrillation. About 4 o r 5 days ago she had 3 episodes of bright red blood per rectum with a scant amount of stool mixed in within the time frame of 1 hour. It resolved on its own and she has not had any bright red blood per rectum or melena since. She has never had anything like this before. She denies lightheadedness or dizziness. She says she had a colonoscopy about 2 years ago and that it ruined my nerves. She complains that she can not feel anything in her rectal area now because of the colonoscopy. She says they did not find anything on the colonoscopy and she never wants to have another 1. She denies emesis, hematemesis or coffee-ground emesis. ?Epigastric abdominal pain - is unclear when it started, but seems to be more recent in the last few days. It has not affected her appetite. Nothing has made it better or worse. It is associated with the mild amount of bloating in her upper abdomen. She still has her gallbladder and has not had any abdominal surgeries. She denies any fevers or chills.? Hospital day 2, 01/08/2025: Patient indicates her dyspnea has improved. She estimates she feels about 10- 15% improved from yesterday when she 1st came to the hospital. No longer having dyspnea at rest. Continues to note dyspnea with moderate exertion. Denies chest heaviness, pressure, tightness, pain. Denies syncope or near-syncope. Denies nausea or vomiting. Appetite slowly improving. Has been smoking up until she is admitted to the hospital presently. She tells me she wants to quit smoking immediately hereafter. Hospital day 3, 01/09/2025: She thinks her dyspnea is improving somewhat and closer to baseline. She agrees to utilize low-flow oxygen supplementation. She has struggled with this notion in the past and not utilize oxygen supplementation. She understands she cannot use oxygen supplementation much greater than 2 liters/minute via nasal cannula lest she become hypercapnic. Denies blood loss of any sort. Tolerating increased activities in her room compared with yesterday. Appetite is improving. Exam Narrative: Exam Narrative: Examined patient in her hospital room. Appears comfortable in no acute distress. Low-flow oxygen at 1.5 liters/minute via nasal cannula with oxygen saturations 88-89% at rest. Alert and oriented x3. Anxious about her condition and future. Lungs with scattered rhonchi and occasional expiratory wheezes. Heart tones distant with normal S1-S2. Abdomen with active bowel sounds, soft, nontender. Independent with transfers and station. Extremities without edema. No focal motor neurologic deficits. Weight today 57.3 kg. Weight yesterday 56.6 kg. Admission weight 58.1 kg. Const: Vital Signs, click to edit/add: Vital Signs - 24 hr 01/08/25 14:50 01/08/25 14:54 01/08/25 14:54 Temperature Pulse Rate [Pulse Oximeter] 93 Pulse Rate [Right Radial] 99 Respiratory Rate 18 Blood Pressure [Le ft Arm] 115/75 Pulse Oximetry 88 92 92 Oxygen Delivery Me thod Nasal Cannula Nasal Cannula Nasal Cannula Oxygen Flow Rate 1 1 1 01/08/25 19:25 01/08/25 21:54 01/08/25 23:00 Temperature 97.7 F Pulse Rate [Pulse Oximeter] 90 Pulse Rate [Right Radial] Respiratory Rate 18 20 Blood Pressure [Le ft Arm] 110/65 Pulse Oximetry 87 L 87 L Oxygen Delivery Me thod Nasal Cannula Oxygen Flow Rate 1.25 01/08/25 23:26 01/08/25 23:35 01/09/25 02:43 Temperature 97.8 F 97.6 F Pulse Rate [Pulse Oximeter] 93 Pulse Rate [Right Radial] 86 Respiratory Rate 20 20 18 Blood Pressure [Le ft Arm] 112/68 118/80 Pulse Oximetry 90 90 91 Oxygen Delivery Me thod Nasal Cannula Room Air Nasal Can nula Nasal Cannula Oxygen Flow Rate 1.25 1.25 0.5 01/09/25 07:00 01/09/25 07:00 01/09/25 08:00 Temperature 97.5 F L Pulse Rate [Pulse Oximeter] 73 73 Pulse Rate [Right Radial] Respiratory Rate 18 18 18 Blood Pressure [Le ft Arm] 108/81 Pulse Oximetry 89 89 Oxygen Delivery Me thod Nasal Cannula Nasal Cannula Oxygen Flow Rate 0.5 0.5 01/09/25 12:30 Temperature 98.2 F Pulse Rate [Pulse Oximeter] 89 Pulse Rate [Right Radial] Respiratory Rate 18 Blood Pressure [Le ft Arm] 123/73 Pulse Oximetry 88 Oxygen Delivery Me thod Nasal Cannula Oxygen Flow Rate 0.5 Labs Labs: Laboratory Results - last 24 hr 01/08/25 20:12 Potassium 4.1
[2025-01-09] MEDS: CALCIUM PO (15:00)
[2025-01-09] MEDS: VITAMIN D PO (15:00)
--- NOTE | 2025-01-09 15:04 | PC.NURSE ---
End of Shift ([id number]): Patient pleasant and cooperative, A&O. VSS, afebrile. SpO2 maintained above 88% on 0.5L O2 via NC. Patient reports pain in her legs this shift, managed with PRN medication, see MAR. SBA to BR. Tolerating heart healthy diet. ?
[2025-01-09] MEDS: MELATONIN 3 MG TABLET PO (23:40)
[2025-01-10] VITALS (9 sets, daily range): BP systolic 103–137; BP diastolic 62–82; PULSE 69–88; RESP 16–18; TEMP 36.4–36.6; O2SAT 88–92
[2025-01-10] MEDS: IPRAT-ALBUT 0.5-2.5 MG/3 ML NEB 1 NEB IH ×4 (02:04→21:30)
[2025-01-10] MEDS: ACETAMINOPHEN 500 MG TABLET 1000 MG PO ×2 (02:08→16:01)
--- NOTE | 2025-01-10 03:00 | PC.NURSE ---
Nursing Care Hours: [id number] Pt this shift calm and cooperative, alert and oriented. Pain to bilat LE, worsens with walking. Pain treated per eMAR and elevation. Color of bilat LE turns purple or deep red with dependent position. Titrate to RA most of shift keeping sats above 88%. Refused omeprazole after junior copywriter educated pt rationale. Pt refused evening neb.
[2025-01-10 07:02] LABS: HCO3 VBG 38 mmol/L (21-28); PO2 VBG 49.7 mmHG (25-47); pH VBG 7.393 (7.32-7.43)
[2025-01-10 07:05] LABS: Hematocrit 55.7 % (33.0-51.0); Hemoglobin* 17.7 gm/dL (12.0-16.0); Mean Corpuscular HGB Conc 32 gm/dL (32-36); Mean Corpuscular Hemoglobin 30 pg (26-34); Mean Corpuscular Volume 93 fL (80-100); Red Blood Count 5.97 m/uL (4.00-5.20); White Blood Count* 12.59 K/uL (4.50-11.00)
[2025-01-10 07:07] LABS: PCO2 VBG 62 mmHG (40-50)
[2025-01-10 07:17] LABS: Slide Review Reflex No
[2025-01-10 07:21] LABS: Chloride* 92 mmol/L (96-114)
[2025-01-10 07:22] LABS: Potassium* 4.0 mmol/L (3.6-5.1); Sodium* 131 mmol/L (135-149)
[2025-01-10 07:24] LABS: Blood Urea Nitrogen* 27 mg/dL (7-30); Creatinine* 0.5 mg/dL (0.5-1.5); Est. Creatinine Clearance* 43.18; Estimated Glomerular Filt Rate 103 ml/min
[2025-01-10 07:25] LABS: Anion Gap 1 mEq/L (7-15); Calcium* 8.0 mg/dL (8.4-10.6); Carbon Dioxide* 38 mmol/L (20-32); Glucose* 82 mg/dL (60-115)
[2025-01-10 07:44] LABS: NT Pro B Type NatriureticPept* 2300 pg/mL (See Note)
[2025-01-10] MEDS: FUROSEMIDE 20 MG TABLET 40 MG PO ×2 (07:57→13:50)
[2025-01-10] MEDS: DOXYCYCLINE HYCLATE 100 MG PO ×2 (09:11→21:27)
[2025-01-10] MEDS: METOPROLOL SUCCINATE (XL) 50 MG TAB PO (09:11)
[2025-01-10] MEDS: SODIUM CHLORIDE 0.9 % (FLUSH) 10 ML SYRINGE 5 ML IVF ×2 (09:12→21:28)
[2025-01-10] MEDS: VITAMIN D PO ×2 (12:06→18:53)
[2025-01-10] MEDS: CALCIUM PO ×2 (12:06→18:53)
--- NOTE | 2025-01-10 13:13 | PC.NURSE ---
Shift Summary: Patient pleasant and cooperative. Up independently. Vitals stable and WNL. Patient states she has chronic back/leg pain, managed with PRN medication. O2 @ 0.5L/NC, maintaining o2 sat 88-90%. Compliant with fluid restriction. Nicotine patch right shoulder intact.
--- NOTE | 2025-01-10 14:27 | PM.IMPN1 ---
Assessment and Plan Assessment and plan (1) Acute on chronic respiratory failure with hypoxia and hypercapnia: Problem comment: - Suspect multifactorial: COPD and HF exacerbations - steroids, nebs, doxycycline, supplemental oxygen, monitoring carefully and set parameters for this to keep O2 saturation around 88% to try and minimize CO2 retention. - follow VBG Status: Acute (2) COPD exacerbation: Problem comment: - Got dexamethasone in the ER. On prednisone daily since, with goal of 5 days therapy. RT consulted. On scheduled DuoNebs and prn albuterol nebs. Doubt atypical pneumonia, nevertheless on BID doxycycline. Status: Acute (3) Tobacco abuse: Problem comment: Pt requests nicotine patch. On 14 mg patch. I recommended quitting smoking permanently. Status: Chronic (4) Acute on chronic heart failure: Problem comment: - HFpEF - LE edema, hypoxia - continue rate control for afib, diurese with Furosemide, update ECHO, last one was done in 2022: - TTE obtained 02/03/23: Final Impressions: 1. Technically limited exam. 2. Normal left ventricular size, borderline wall thickness, normal global systolic function, calculated EF of 59 %. 3. Right ventricular cavity size is moderately enlarged, global systolic RV function is severely reduced. 4. Right ventricular volume and pressure overload. 5. The aortic valve is sclerotic, no stenosis and no regurgitation. 6. The mitral valve is normal, mild mitral regurgitation. 7. Tricuspid valve is non coapting. Severe tricuspid regurgitation. 8. The inferior vena cava is dilated, respiratory size variation less than 50%. - TTE 01/08/25: Normal LV chamber size, wall thickness, global systolic function, with estimated LVEF 65-75%. Severely enlarged right ventricle with difficult to assess right ventricular function. Mildly enlarged left atrium. Dilated inferior vena cava with respiratory size variation greater than 50%. Estimated right ventricular systolic pressure of 28 mmHg plus right atrial pressure, with mild tricuspid regurgitation and no pulmonary regurgitation. - 01/09/2025: Continue with increase furosemide dose of 40 mg p.o. b.i.d. for now. On admission she was on furosemide 20 mg p.o. q.a.m.. Status: Acute (5) Atrial fibrillation: Problem comment: - continue metoprolol for rate control, restarted Eliquis 01/10 Status: Chronic (6) Rectal bleeding: Problem comment: - CT abd/pelvis does not show GI bleeding, but there is concern for enteritis and colonic wall thickening. Colonoscopy recommended. Patient early said she never wants another, but may reconsider with these findings - Eliquis was held while stool occult blood was obtained, negative on 01/08/2025 so will restart Eliquis - outpatient follow-up to discuss further Status: Acute (7) Chronic anticoagulation: Problem comment: as above Status: Chronic (8) Erythrocytosis: Problem comment: 05/12/2022 hemoglobin 15.9, hematocrit 45.9. White blood cell count 10.7, platelet count 235. 12/10/2022 hemoglobin 19.7, hematocrit 59. White blood cell count 11.1, platelet count 150. 02/02/2023 hemoglobin 20.0, hematocrit 50.7. White blood cell count 12, platelet count 169. 7/02/24 hemoglobin 17/5. WBC 10.5, plt 177. Unsure if further w/u was done as outpatient. Most likely due to chronic hypoxia. Consider obtaining an erythropoietin level in the outpatient setting if appropriate during follow-up. Status: Chronic (9) Epigastric pain: Problem comment: - with mild elevation in LFTs - Started PPI, reassuring RUQ ultrasound, consider outpatient EGD Status: Acute (10) Elevated LFTs: Problem comment: - Cause not immediately clear. Patient has h/o EtOH use. AST and ALT are of similar elevation. +RUQ pain. CT abd/pelvis shows possible enteritis. Will also check RUQ US in am. Status: Acute (11) Visual disturbance: Problem comment: - Symptom onset 4-[address] head as above, reassuring. If this were stroke, it is outside the timeframe where acute intervention would be of benefit - improved, consider outpatient MRI/Optometry f/u Status: Acute Plan - per above (continue following labs, restart Eliquis, supplemental oxygen as needed) - likely home tomorrow on complete course of abx and steroids Subjective Date Seen: 01/10/25 Interval history: Cornelia was admitted to the hospital on 01/07/2025 for acute on chronic hypoxic respiratory failure in the setting of known COPD. Also had concerns of rectal bleeding (resolved), BLE edema (stable), epigastic pain (resolved, tolerating po intake) She has been slowly improving, still requiring oxygen for ambulation. Does not feel like she is ready to go home yet today given persistent O2 needs. Therapies have seen her, no acute needs identified. Exam Narrative: Exam Narrative: GEN: Alert and oriented, sitting up in bed and nontoxic HEENT: Normal external ears, EOMIs bilaterally, no scleral icterus CV: RRR, No concerning murmurs, rubs, or gallops R: Decreased bibasilar breath sounds, mild expiratory wheeze that clears with deep breath Ext: wwp, 1+ BLE edema Neuro: Nonfocal Psych: Appropriate Const: Vital Signs, click to edit/add: Vital Signs - 24 hr 01/09/25 15:00 01/09/25 15:00 01/09/25 15:00 Temperature 98.0 F Pulse Rate [Pulse Oximeter] 85 Pulse Rate [Right Radial] 85 Respiratory Rate 18 18 18 Blood Pressure [Le ft Arm] 118/75 Pulse Oximetry 91 91 Oxygen Delivery Me thod Nasal Cannula Nasal Cannula Oxygen Flow Rate 1 1 01/09/25 19:00 01/09/25 21:00 01/09/25 23:00 Temperature Pulse Rate [Pulse Oximeter] Pulse Rate [Right Radial] 80 68 Respiratory Rate 18 18 Blood Pressure [Le ft Arm] 122/68 Pulse Oximetry 87 L 89 91 Oxygen Delivery Me thod Room Air Oxygen Flow Rate 01/09/25 23:00 01/09/25 23:00 01/10/25 02:21 Temperature 97.6 F Pulse Rate [Pulse Oximeter] 85 69 Pulse Rate [Right Radial] Respiratory Rate 18 18 16 Blood Pressure [Le ft Arm] 137/79 Pulse Oximetry 89 89 Oxygen Delivery Me thod Room Air Room Air Oxygen Flow Rate 01/10/25 07:00 01/10/25 08:03 01/10/25 10:46 Temperature 97.8 F 97.9 F Pulse Rate [Pulse Oximeter] 73 84 Pulse Rate [Right Radial] Respiratory Rate 18 18 16 Blood Pressure [Le ft Arm] 123/82 103/65 Pulse Oximetry 88 89 88 Oxygen Delivery Me thod Room Air Room Air Room Air Oxygen Flow Rate 01/10/25 13:52 Temperature Pulse Rate [Pulse Oximeter] Pulse Rate [Right Radial] Respiratory Rate Blood Pressure [Le ft Arm] 120/74 Pulse Oximetry Oxygen Delivery Me thod Oxygen Flow Rate Labs Labs: Laboratory Results - last 24 hr 01/10/25 06:50 WBC 12.59 H RBC 5.97 H Hgb 17.7 H Hct 55.7 H MCV 93 MCH 30 MCHC 32 Plt Count 155 VBG pH 7.393 VBG pCO2 62 H* VBG pO2 49.7 H VBG HCO3 38 H Sodium 131 L Potassium 4.0 Chloride 92 L Carbon Dioxide 38 H Anion Gap 1 L BUN 27 Creatinine 0.5 Estimated Creat Clear 43.18 Estimated GFR 103 Glucose 82 Calcium 8.0 L Magnesium 1.7 NT-Pro-B Natriuret Pep 2300 H
[2025-01-10] MEDS: APIXABAN 5 MG TABLET PO (21:27)
[2025-01-10] MEDS: MELATONIN 3 MG TABLET PO (22:23)
--- NOTE | 2025-01-10 23:08 | PC.NURSE ---
Shift note [id number] The pt has been alert and oriented; denied chest pain and short of breath at rest; c/o minimal short of breath with exertion. The pt has been c/o back and leg pain - PRN pain medication given as ordered. The pt appeared without any acute distress?
[2025-01-11] MEDS: IPRAT-ALBUT 0.5-2.5 MG/3 ML NEB 1 NEB IH ×2 (02:59→10:16)
[2025-01-11 03:00] VITALS: BP 109/67; PULSE 74; RESP 18; TEMP 36.6; O2SAT 91
[2025-01-11 07:00] VITALS: BP 127/75; PULSE 93; RESP 20; O2SAT 88
--- NOTE | 2025-01-11 07:00 | PC.NURSE ---
pleasant and cooperative. Indep in room. Pt on RA-0.5L via NC, sats 90-92%. Exp rhonchi/wheezes auscultated, encouraging deep breathing exercises. ?
[2025-01-11 07:08] LABS: HCO3 VBG 38 mmol/L (21-28); PO2 VBG 50.1 mmHG (25-47); pH VBG 7.383 (7.32-7.43)
[2025-01-11 07:15] LABS: Hematocrit 54.1 % (33.0-51.0); Hemoglobin* 17.2 gm/dL (12.0-16.0); Immature Granulocytes Pct Auto 1.4 %; Mean Corpuscular HGB Conc 32 gm/dL (32-36); Mean Corpuscular Hemoglobin 30 pg (26-34); Mean Corpuscular Volume 93 fL (80-100); PCO2 VBG 64 mmHG (40-50); RDW Coefficient of Variation % 14.7 % (11.5-15.5); Red Blood Count 5.83 m/uL (4.00-5.20); White Blood Count* 11.73 K/uL (4.50-11.00)
[2025-01-11 07:18] LABS: Immature Granulocytes Abs Auto 0.20 K/uL (0.00-0.30); Lymphocytes Absolute Auto 2.10 K/uL (0.90-2.90); Slide Review Reflex No
[2025-01-11 07:36] LABS: Albumin* 3.4 g/dL (3.3-5.0); Chloride* 94 mmol/L (96-114); Sodium* 132 mmol/L (135-149)
[2025-01-11 07:37] LABS: Potassium* 4.3 mmol/L (3.6-5.1)
[2025-01-11 07:39] LABS: Alanine Aminotransferase* 31 U/L (4-35); Anion Gap 2 mEq/L (7-15); Aspartate Amino Transferase* 37 U/L (12-35); Blood Urea Nitrogen* 30 mg/dL (7-30); Carbon Dioxide* 36 mmol/L (20-32); Creatinine* 0.6 mg/dL (0.5-1.5); Est. Creatinine Clearance* 43.18; Estimated Glomerular Filt Rate 98 ml/min; Total Protein* 5.9 g/dL (6.0-8.3)
[2025-01-11 07:40] LABS: Alkaline Phosphatase* 41 U/L (40-150); Bilirubin Total* 0.8 mg/dL (0.1-1.5); Calcium* 8.2 mg/dL (8.4-10.6); Glucose* 76 mg/dL (60-115)
[2025-01-11 09:35] VITALS: O2SAT 82; O2SAT 84; O2SAT 90
[2025-01-11] MEDS: FUROSEMIDE 20 MG TABLET PO (10:13)
[2025-01-11] MEDS: DOXYCYCLINE HYCLATE 100 MG PO (10:14)
[2025-01-11] MEDS: METOPROLOL SUCCINATE (XL) 50 MG TAB PO (10:15)
[2025-01-11] MEDS: APIXABAN 5 MG TABLET PO (10:15)
[2025-01-11] MEDS: SODIUM CHLORIDE 0.9 % (FLUSH) 10 ML SYRINGE 5 ML IVF (10:15)
--- NOTE | 2025-01-11 10:22 | PM.DS1 ---
DS: Providers Provider Date Seen: 01/11/25 Date of admission: 01/08/25 13:47 Primary care physician: Melissa Ramos MD Admitting Clinician: Kendal Ziegler MD Consults: OT, PT, RT Attending Physician on discharge: Yumiko Ross MD Date of Discharge: 01/11/25 DS: Diagnosis Discharge Diagnosis (1) Acute on chronic respiratory failure with hypoxia and hypercapnia: Status: Acute Problem details: - Suspect multifactorial: COPD and HFpEF exacerbation - steroids, nebs, doxycycline, supplemental oxygen, monitoring carefully and set parameters for this to keep O2 saturation around 88% to try and minimize CO2 retention - seen by RT during stay, met criteria for low dose home O2 (Cornelia understands risk of CO2 retention) (2) COPD exacerbation: Status: Acute Problem details: - Prednisone, nebs, Doxycycline (3) Tobacco abuse: Status: Chronic Problem details: - Pt requests nicotine patch. On 14 mg patch, motivated to quit (4) Acute on chronic heart failure: Status: Acute Problem details: - HFpEF with evidence of mild CHF exacerbation given weight gain, LE edema, and hypoxia - treated with increased doses of IV Furosemide, back to home dose upon d/c with close PCP f/u - repeat TTE obtained: - TTE 01/08/25: Normal LV chamber size, wall thickness, global systolic function, with estimated LVEF 65-75%. Severely enlarged right ventricle with difficult to assess right ventricular function. Mildly enlarged left atrium. Dilated inferior vena cava with respiratory size variation greater than 50%. Estimated right ventricular systolic pressure of 28 mmHg plus right atrial pressure, with mild tricuspid regurgitation and no pulmonary regurgitation. (5) Atrial fibrillation: Status: Chronic Problem details: - continued metoprolol for rate control, restarted Eliquis 01/10 (6) Rectal bleeding: Status: Acute Problem details: - CT a/p on 01/09 without GI bleeding, but + concern for enteritis and colonic wall thickening, colonoscopy recommended - Eliquis was held while stool occult blood was obtained, negative on 01/08/2025 - restarted Eliquis 01/10 - outpatient follow-up to discuss further (7) Chronic anticoagulation: Status: Chronic Problem details: as above (8) Erythrocytosis: Status: Chronic Problem details: 05/12/2022 hemoglobin 15.9, hematocrit 45.9. White blood cell count 10.7, platelet count 235. 12/10/2022 hemoglobin 19.7, hematocrit 59. White blood cell count 11.1, platelet count 150. 02/02/2023 hemoglobin 20.0, hematocrit 50.7. White blood cell count 12, platelet count 169. 7/02/24 hemoglobin 17/5. WBC 10.5, plt 177. - Most likely due to chronic hypoxia. Consider obtaining an erythropoietin level in the outpatient setting if appropriate during follow-up. (9) Epigastric pain: Status: Acute Problem details: - with mild elevation in LFTs (LFTs improved during stay) - Started PPI, reassuring RUQ ultrasound, consider outpatient EGD (10) Elevated LFTs: Status: Acute Problem details: - Cause not immediately clear, h/o EtOH use. AST and ALT are of similar elevation. +RUQ pain. CT abd/pelvis shows possible enteritis - reassuring RUQ ultrasound, LFTs improved during stay (ALT normal, AST 37) (11) Visual disturbance: Status: Acute Problem details: - Symptom onset 4-5 days prior to admission. CT head as above, reassuring. If this were stroke, it is outside the timeframe where acute intervention would be of benefit - improved, consider outpatient MRI/Optometry f/u DS: Summary Hospital Course Hospital Course: Cornelia was admitted to the hospital on 01/07/2025 for acute on chronic hypoxic respiratory failure in the setting of known COPD and HFpEF exacerbation. Also had concerns of rectal bleeding (resolved), BLE edema (stable), epigastric pain (resolved, tolerating po intake), vision concerns (improved/stable). LFTs mildly elevated with reassuring RUQ ultrasound, these normalized during stay (query congestive hepatology given HFpEF with exacerbation). Diuresed with IV Furosemide, + weight loss and improved LE edema. She has been slowly improving, still requiring low dose oxygen for ambulation. Seen by RT and home O2 prescribed (low dose, patient aware of CO2 retention risk) Therapies saw her during stay, no acute needs identified. Motivated to quit smoking, has patches at home. Will f/u with PCP for the above conditions, stable for d/c on 01/11/25. Time spent discussing smoking cessation with patient: 3 to 10 minutes Status at Discharge Functional status at discharge: uses cane/walker Overall status at discharge: patient is progressing back to baseline Time Spent with Patient Time attestation: Total time spent providing and/or coordinating discharge services: Time spent: Greater than 30 minutes Exam Narrative: Exam Narrative: GEN: Alert and oriented, sitting up in bed, nontoxic. Speaking in full sentences HEENT: EOMIs bilaterally, no scleral icterus CV: RRR, No concerning murmurs, rubs, or gallops R: Mild expiratory wheezing throughout, clears with deep breath Ext: wwp, 1+ BLE edema, mild hyperpigmentatin c/w PVD Neuro: Nonfocal Psych: Appropriate Const: Vital Signs, click to edit/add: Vital Signs - 24 hr 01/10/25 10:46 01/10/25 13:52 01/10/25 16:00 Temperature 97.9 F Pulse Rate [Pulse Oximeter] 84 84 Respiratory Rate 16 16 Blood Pressure [Le ft Arm] 103/65 120/74 Pulse Oximetry 88 Oxygen Delivery Me thod Room Air Oxygen Flow Rate 01/10/25 16:00 01/10/25 16:00 01/10/25 19:00 Temperature 97.7 F 97.5 F L Pulse Rate [Pulse Oximeter] 88 77 Respiratory Rate 16 16 16 Blood Pressure [Le ft Arm] 106/62 111/63 Pulse Oximetry 89 89 88 Oxygen Delivery Me thod Room Air Room Air Room Air Oxygen Flow Rate 01/10/25 21:00 01/10/25 23:00 01/10/25 23:00 Temperature Pulse Rate [Pulse Oximeter] Respiratory Rate 16 18 Blood Pressure [Le ft Arm] Pulse Oximetry 92 92 Oxygen Delivery Me thod Room Air Oxygen Flow Rate 01/10/25 23:00 01/11/25 03:00 Temperature 97.8 F Pulse Rate [Pulse Oximeter] 74 Respiratory Rate 18 18 Blood Pressure [Le ft Arm] 109/67 Pulse Oximetry 92 91 Oxygen Delivery Me thod Nasal Cannula Nasal Cannula Oxygen Flow Rate 0.5 0.5 DS: Data Data Completed and Pending Completed studies during hospitalization: Procedures Introduction of Other Gas into Respiratory Tract, Via Natural or Artificial Opening (02/02/23) Labs on day of discharge: Labs from last 24 hours 01/11/25 06:13 WBC 11.73 H RBC 5.83 H Hgb 17.2 H Hct 54.1 H MCV 93 MCH 30 MCHC 32 RDW Coeff of Jonel 14.7 Plt Count 171 Neut % (Auto) 67.1 Lymph % (Auto) 17.6 L [place] % (Auto) 11.3 H Eos % (Auto) 2.3 Baso % (Auto) 0.3 Neut # (Auto) 7.90 H Lymph # (Auto) 2.10 [place] # (Auto) 1.30 H Eos # (Auto) 0.30 Baso # (Auto) 0.00 Abs Immat Gran (auto) 0.20 Imm/Tot Granulo (auto) 1.4 VBG pH 7.383 VBG pCO2 64 H* VBG pO2 50.1 H VBG HCO3 38 H Sodium 132 L Potassium 4.3 Chloride 94 L Carbon Dioxide 36 H Anion Gap 2 L BUN 30 Creatinine 0.6 Estimated Creat Clear 43.18 Estimated GFR 98 Glucose 76 Calcium 8.2 L Total Bilirubin 0.8 AST 37 H ALT 31 Alkaline Phosphatase 41 Total Protein 5.9 L Albumin 3.4 Discharge Plan Discharge Disposition: Home, Self-Care Date of Admission: 01/08/25 13:47 Attending Provider on Discharge: Yumiko Ross Primary Care Provider: Melissa Ramos Condition: Improved Anticipated Discharge Date/Time: 01/11/25 10:17 Discharge Medications: New prednisone 20 mg Tablet 40 mg PO DAILYWM 2 Days Qty: 4 0RF doxycycline hyclate 100 mg Tablet 100 mg PO BID 4 Days Qty: 8 0RF Continued furosemide 20 mg tablet 20 mg PO QAM acetaminophen 500 mg tablet 1,000 mg PO TID PRN metoprolol succinate 50 mg Tablet Extended Release 24 Hr 50 mg PO DAILY Qty: 30 0RF Eliquis 5 mg Tablet 5 mg PO BID Qty: 60 0RF oxycodone 10 mg tablet 10 mg PO 3XD ipratropium-albuterol 0.5 mg-3 mg(2.5 mg base)/3 mL solution for nebulization 3 ml INHALATION QID Discharge Orders: Discharge Order (Routine); Ordered 01/11/25 Ordered By: Yumiko Ross Additional Instructions: Great work on quitting smoking! 2 more days of steroids and 4 more days of antibiotics sent to [facility]. Call [facility] and see Dr. Ramos for a followup in 1-2 weeks. Activity Level: No strenuous activity Discharge Diet: Heart Healthy (2 gm sodium, low fat) Follow Up Appointments: Melissa Ramos MD [Primary Care Provider, Family Practice] Forms: MyHealth Info Instructions
[2025-01-11] MEDS: VITAMIN D PO (11:21)
[2025-01-11] MEDS: CALCIUM PO (11:21)
--- NOTE | 2025-01-11 13:01 | RESP.RT ---
Patient instruction completed with POC and E tank for her supplemental O2 order. [facility] has approved order and will follow up with patient upon discharge.
--- NOTE | 2025-01-11 14:52 | PC.NURSE ---
Discharge - Pt alert, oriented, cooperative. Up independently in room, tolerating RA and O2 via nasal cannula at 0.5L PRN. Reported generalized pain, given medication per MAR to improve pt comfort. IV removed with catheter intact, d/c education provided with pt verbalizing understanding. D/C to home with family member via wheelchair at approximately 1430.
== END 2025-01-11 14:30 | disposition home or self-care (01) | DRG 291 ==
LOC: ED 19:39 → MEDSURG 20:18
PROVIDERS: Family Medicine; Admitting Provider Internal Medicine; Emergency Provider Emergency Medicine Emergency Medical Services; PCP Family Medicine; Visit Provider Family Medicine
DX: I11.0 Hypertensive heart disease with heart failure (principal); I50.33 Acute on chronic diastolic (congestive) heart failure; J96.21 Acute and chronic respiratory failure with hypoxia; J96.22 Acute and chronic respiratory failure with hypercapnia; J44.1 Chronic obstructive pulmonary disease with (acute) exacerbation; K62.5 Hemorrhage of anus and rectum; Z59.19 Other inadequate housing; I48.20 Chronic atrial fibrillation, unspecified; Z79.01 Long term (current) use of anticoagulants; D75.1 Secondary polycythemia; R10.13 Epigastric pain; R79.89 Other specified abnormal findings of blood chemistry; F17.210 Nicotine dependence, cigarettes, uncomplicated; I45.19 Other right bundle-branch block; H53.8 Other visual disturbances
CPT/HCPCS: 36415; 70450; 71046; 74177; 76705; 80048; 80053; 80076; 82270; 82803; 83690; 83735; 83880; 84132; 84484; 85025; 85027; 87631; 93005; 93306; 94640; 94761; 97161; 97165; 99284; 99285; A9270; G0378; J1100; J1938; J7512; Q9967; S4990